=== PATIENT | female | born 1985 | race Caucasian/White ===

== ENCOUNTER 2020-08-11 10:23 | Outpatient (REF) | payer OTHER, SELFPAY ==
[2020-08-11 10:42] LABS: COVID-19 Test Negative (Negative)
== END 2020-08-11 10:24 | disposition home or self-care (01) ==
LOC: HO.EMPCOV 10:23
PROVIDERS: Visit Provider Internal Medicine
DX: Z20.828 Contact with and (suspected) exposure to other viral communicable diseases (principal)
CPT/HCPCS: 87635; C9803

== ENCOUNTER 2020-08-16 08:59 | Emergency (ER) | payer OTHER, SELFPAY ==
[2020-08-16 09:51] VITALS: BP 135/91; PULSE 120; RESP 18; TEMP 37.4; O2SAT 99; BMI 45.8
--- NOTE | 2020-08-16 10:35 | ED_ITS ---
HPI - Wound/Laceration General Chief Complaint: Wound/Laceration Stated Complaint: boil on buttock, painful Time Seen by Provider: 08/16/20 10:33 History of Present Illness HPI narrative: Patient complains of boil on the right buttock similar to several other episodes of abscess, it has been there for 3 days, no fever no chills Related Data Previous Rx's Medication Instructions Recorded doxycycline hyclate 100 mg PO BID 7 Days #14 cap 08/16/20 ibuprofen 600 mg PO Q6H PRN #20 tab 08/16/20 Allergies Allergy/AdvReac Type Severity Reaction Status Date / Time acetaminophen [Percocet] Allergy Unknown hives Verified 08/16/20 09:57 oxycodone [Percocet] Allergy Unknown hives Verified 08/16/20 09:57 No Known Allergies Allergy Unverified 04/30/20 16:10 Review of Systems Review of Systems: Right gluteal abscess Negatives are no fever no chills no dizziness no weakness no other rash no other abscess no numbness no weakness [facility] Past Medical History Attestation statement: The following information was validated with the patient. [facility] Narrative: Patient has had similar abscesses in the past Source: nursing notes reviewed Social History Social History Advance Directives: No Advance Directives Information Provided: Yes Physical Exam Vital Signs: Vital Signs: Last Vital Signs Temp 99.3 F 08/16/20 09:51 Pulse 120 H 08/16/20 09:51 Resp 18 08/16/20 09:51 BP 135/91 H 08/16/20 09:51 Pulse Ox 99 08/16/20 09:51 Body Mass Index 45.8 General appearance no distress, cooperative Head is normocephalic atraumatic Neck is supple Respiratory no distress Abdomen nontender The skin exam there is an area of induration and fluctuance, no discharge on the right gluteal, there is some mild surrounding erythema, skin is intact Extremities is full range of motion x4, gait is normal Neuro no focal deficit Course Course Course Narrative: Procedure note Right gluteal abscess is cleansed with Betadine Anesthesia was 15 cc of 1% lidocaine A 1 cm incision was made, loculations broken up with forceps and discharge of copious pus Packing was placed Dressing was placed Discharge Plan Discharge Clinical Impression: Abscess Patient Disposition: Home, Self-Care Additional Instructions: Return to ER in 2 days for packing removal, wound check Return any time for spreading redness, worse pain and swelling, fever, any worse condition or any concerns Prescriptions: New doxycycline hyclate 100 mg capsule 100 mg PO BID 7 Days Qty: 14 RF: 0 ibuprofen 600 mg tablet 600 mg PO Q6H PRN (Reason: pain) Qty: 20 RF: 0 Interventions: ED Discharge Assessment Last Done: 08/16/20 11:52 Discharge Date/Time: 08/16/20 11:53
[2020-08-16] MEDS: Lidocaine HCl 1 % MPF 5 ML VIAL SUBCUT ×3 (10:57→11:12)
[2020-08-16] MEDS: Ibuprofen 600 MG TABLET PO (11:50)
--- NOTE | 2020-08-16 11:50 | PC.NURSE ---
marivel torres in to assess, perform i&d, pack wound, rn applied dsd, pt tolerated well
== END 2020-08-16 11:53 | disposition home or self-care (01) ==
PROVIDERS: Emergency Provider Emergency Medicine; PCP Nurse Practitioner Family
DX: L02.31 Cutaneous abscess of buttock (principal)
CPT/HCPCS: 10060; 99283; 99284

== ENCOUNTER 2020-08-18 09:54 | Emergency (ER) | payer OTHER, SELFPAY ==
--- NOTE | 2020-08-18 10:02 | ED_ITS ---
HPI - General Adult General Chief complaint: Skin/Abscess/Foreign Body Stated complaint: wound check Source: patient Mode of arrival: ambulatory Limitations: no limitations History of Present Illness HPI narrative: Patient presents to ED for evaluation of status post right buttock I&D of abscess. Patient states no complaints. Patient states packing is still in place. Related Data Previous Rx's Medication Instructions Recorded doxycycline hyclate 100 mg PO BID 7 Days #14 cap 08/16/20 ibuprofen 600 mg PO Q6H PRN #20 tab 08/16/20 Allergies Allergy/AdvReac Type Severity Reaction Status Date / Time acetaminophen [Percocet] Allergy Unknown hives Verified 08/18/20 10:07 oxycodone [Percocet] Allergy Unknown hives Verified 08/18/20 10:07 No Known Allergies Allergy Verified 08/18/20 10:07 Review of Systems Review of Systems: Yes all other systems are reviewed and are negative Constitutional: Constitutional: Reports as per HPI and Reports no additional constitutional complaints Eyes: Eyes: Reports as per HPI and Reports no additional eye complaints ENT: Reports system reviewed and no additional complaints, except as documented and Reports as per HPI Cardiovascular: Cardiovascular: Reports as per HPI and Reports no additional cardiovascular complaints Respiratory: Respiratory: Reports as per HPI and Reports no additional respiratory complaints Gastrointestinal: Gastrointestinal: Reports as per HPI and Reports no additional gastrointestinal complaints Genitourinary: Genitourinary: Reports no additional female genitourinary compl aints and Reports as per HPI Musculoskeletal: Musculoskeletal: Reports no additional musculoskeletal complaints and Reports as per HPI Neurologic: Reports system reviewed and no additional complaints, except as documented and Reports as per HPI Psychiatric: Psychiatric: Reports no additional psychiatric complaints and Reports as per HPI [facility] Past Medical History Medical History (Updated 08/18/20 @ 11:18 by DIXIE Pettit) No known health problems Social History Social History Alcohol intake: unknown Use of substances other than those prescribed or required for medical reasons: Unknown Advance Directives: No Advance Directives Information Provided: Yes Physical Exam Vital Signs: Vital Signs: Last Vital Signs Temp 97.0 F 08/18/20 10:04 Pulse 109 H 08/18/20 10:04 Resp 17 08/18/20 10:04 BP 144/94 H 08/18/20 10:04 Pulse Ox 98 08/18/20 10:04 Body Mass Index 44.9 Const: General: cooperative, healthy appearing, comfortable, no acute distress, well developed, alert and awake Orientation/consciousness: patient oriented x3 HENMT: Head: Yes normal to inspection and Yes No palpable skull fracture present Eyes: General: appearance normal, both eyes and all related structures Neck: Neck: Yes normal visual inspection, Yes full ROM, Yes no lymphadenopathy, Yes no meningeal signs, Yes trachea midline, Yes supple and No tender Chest: Chest palpation & inspection: normal inspection of the chest and normal palpation of entire chest wall Resp: Effort & Inspection: normal respiratory effort and able to speak in complete sentences Auscultation: clear to auscultation bilaterally Cardio: Jugular venous distension: no JVD Heart sounds: S1 normal heart sound present and S2 normal heart sound present GI: Inspection: Yes normal to inspection and No abdominal wall ecchymosis Palpation (GI): Soft to palpation, not firm, nontender, no guarding and not rigid : General: No CVA tenderness and Yes no CVA tenderness Back/Spine/Pelvis: Back: no CVA tenderness, No CVA tenderness and No back tenderness Skin: General skin exam: no rashes or lesions noted and elasticity normal Neuro: General: patient oriented x3, no meningeal signs and CN's II-XI intact bilaterally Cranial nerves: Yes CN's II-XII intact bilaterally Extrem: General: Yes normal to inspection and Yes full ROM Psych: Appearance: grossly normal, well kempt and not disheveled Course Course Course Narrative: Patient will be evaluated once there is open bed. Reevaluation(s) Reevaluation #1: Patient's wound ( left buttocks) looks healthy and clean. Packing was removed and wound was cleaned with Betadine, normal saline, alcohol swab. New packing was placed. Also new dressing was placed. Time: 11:12 Medical Decision Making [facility] Narrative Medical decision making narrative: Wound check Discharge Plan Discharge Clinical Impression: Wound check, abscess Patient Disposition: Home, Self-Care Instructions: Abscess Follow-up (ED) Additional Instructions: Return to ED for any worsening pain, fever, chills, worsening redness, profuse drainage, or any other concerning symptoms. Return to the ED or follow-up with the PCP in 2 days for wound re-evaluation. Prescriptions: No Action doxycycline hyclate 100 mg capsule 100 mg PO BID 7 Days Qty: 14 RF: 0 ibuprofen 600 mg tablet 600 mg PO Q6H PRN (Reason: pain) Qty: 20 RF: 0 Interventions: ED Discharge Assessment Last Done: 08/18/20 11:23 Discharge Date/Time: 08/18/20 11:25 Print Language: Algerian
[2020-08-18 10:04] VITALS: BP 144/94; PULSE 109; RESP 17; TEMP 36.1; O2SAT 98; BMI 44.9
== END 2020-08-18 11:25 | disposition home or self-care (01) ==
PROVIDERS: Emergency Provider Emergency Medicine; PCP Nurse Practitioner Family
DX: Z48.00 Encounter for change or removal of nonsurgical wound dressing (principal); L02.31 Cutaneous abscess of buttock
CPT/HCPCS: 99282; 99283

== ENCOUNTER 2020-09-20 10:31 | Emergency (ER) | payer OTHER, SELFPAY ==
[2020-09-20 10:33] VITALS: BP 136/72; PULSE 84; RESP 16; TEMP 36.4; O2SAT 97; BMI 46.8
--- NOTE | 2020-09-20 10:43 | ED.SKABFB ---
HPI - Skin/Abscess/Foreign Bdy General Chief complaint: Skin/Abscess/Foreign Body Stated complaint: THUM INJ AT WORK Time Seen by Provider: 09/20/20 10:42 Source: patient Mode of arrival: ambulatory Limitations: no limitations History of Present Illness HPI narrative: 35 yo female hx of boils here for R thumb redness/swelling drainage she is R hand dom, noted on she scraped it on counter and it became inflammed and swollen, tdap UTAida DIANE complaint: abscess/boil Onset (ago): day(s) (4) Tetanus up to date: yes Location: R hand (thumb) Severity: similar to previous episodes Quality: aching Pain Consistency: constant Relieving factors: none Exacerbating factors: none Context: other (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) Associated symptoms: denies other symptoms Treatments prior to arrival: none Related Data Home Medications Medication Instructions Recorded Confirmed ibuprofen [Motrin] 800 mg PO Q8H PRN MDD 2400 09/20/20 09/20/20 levothyroxine 125 mcg PO DAILY 09/20/20 09/20/20 omeprazole 20 mg PO DAILY 09/20/20 09/20/20 sertraline [Zoloft] mg 09/20/20 Previous Rx's Medication Instructions Recorded doxycycline hyclate 100 mg PO BID 7 Days #14 cap 08/16/20 ibuprofen 600 mg PO Q6H PRN #20 tab 08/16/20 cephalexin 500 mg PO BID 7 Days #14 cap 09/20/20 cyclobenzaprine 10 mg PO TID PRN #14 tab 09/20/20 doxycycline hyclate 100 mg PO BID 7 Days #14 cap 09/20/20 ibuprofen 600 mg PO Q6H PRN #30 tab 09/20/20 ondansetron 4 mg PO Q8H PRN #20 tab 09/20/20 Allergies Allergy/AdvReac Type Severity Reaction Status Date / Time acetaminophen [Percocet] Allergy Unknown hives Verified 08/18/20 10:07 oxycodone [Percocet] Allergy Unknown hives Verified 08/18/20 10:07 No Known Allergies Allergy Verified 08/18/20 10:07 Review of Systems Review of Systems: Constitutional : No Fever, No Chills ENT/Mouth : No sore throat, No Rhinorrhea Eyes: No Eye Pain, No Swelling, No Redness Cardiovascular : No Chest Pain, No SOB Respiratory : No Cough, No Sputum Gastrointestinal : No Nausea, No Vomiting, No Diarrhea, No abdominal Pain Genitourinary : No Dysuria, No Hematuria Musculoskeletal : pos joint pain, No Myalgias, No Joint Swelling Skin : pos Skin Lesions, positive skin rash Neuro : No Weakness, No Numbness, No Headache Psych : No Anxiety, No Depression Heme/Lymph: No Bruising, No Bleeding,No Lymphadenopathy Endocrine : No Polyuria, No Polydipsia All other systems reviewed and are negative [facility] Past Medical History Attestation statement: The following information was validated with the patient. Medical History Boils Social History Social History (Updated 09/20/20 @ 11:36 by Tansiha Lancaster DO) Alcohol intake: unknown Smoking Status: Never smoker Advance Directives: No Advance Directives Information Provided: No Physical Exam Vital Signs: Vital Signs: Last Vital Signs Temp 97.6 F 09/20/20 10:33 Pulse 86 09/20/20 13:18 Resp 18 09/20/20 13:18 BP 128/81 09/20/20 13:18 Pulse Ox 99 09/20/20 13:18 Body Mass Index 46.8 Appearance: Alert. Oriented X3. No acute distress. Eyes: Pupils equal, round and reactive to light. ENT: Pharynx normal. Neck: Normal inspection. Neck supple. CVS: Normal heart rate and rhythm. Pulses normal. Respiratory: No respiratory distress. Breath sounds normal. Abdomen: Soft and nontender. Skin: Skin warm and dry. Normal skin color. Normal skin turgor. Extremities: No lower extremity edema. No calf ttp R thumb on dorsum fluctuant area with open area but not draining overlying IP joint, distal NV intact, swelling and mild erythema extends onto dorsum of hand and around thenar eminence - she can range thumb no ttp along flexor tendon, she can extend as well it is not fixed or contracted Neuro: Oriented X 3. No motor deficit. No sensory deficit. Course Course Course Narrative: I have asked the patient several times to stay overnight for IV antibiotics given dominant hand and thumb - cellulitis and abscess, she is alert and oriented, answers questions appropriately - states she cannot stay overnight and will return for any concerns Procedures Abscess I/D Site: hand Side (if applicable): right Local Anesthetic: lidocaine 2% Amount of anesthesia used (mL): 3 Amount of fluid expressed (mL): 5 Sent for culture/gram staining?: Yes Irrigation: Yes Packing used?: none MDM - Skin/Abscess/Foreign Bdy MDM Narrative Medical decision making narrative: 35 yo female with R thumb abscess extending onto dorsum of hand - will obtain labs, xray for FB, start IV antibiotics attempt I/D - dispo per results and findings. she has no flexor ttp and she can range the thumb it is not contracted at this time Lab Data Result diagrams: 09/20/20 11:05 09/20/20 11:06 Labs: Lab Results 09/20/20 09/20/20 09/20/20 Range/Units 11:05 11:06 11:06 WBC 7.9 (4.8-10.8) X10*3/uL RBC 4.32 (4.20-5.50) X10*6/uL Hgb 12.0 (12.0-16.0) g/dl Hct 36.4 L (37-47) % MCV 84.3 (80-98) fL MCH 27.8 (27.0-33.0) pg MCHC 33.0 (31.0-35.0) g/dl RDW 14.7 (11.0-16.0) % Plt Count 418 H (160-400) X10*3/uL MPV 10.3 (9.4-12.3) fL Immature Gran % (Auto) 0.3 (0.0-0.4) % Neut % (Auto) 71.6 (45-73) % Lymph % (Auto) 19.6 L (20-40) % Traill % (Auto) 6.9 (2-11) % Eos % (Auto) 1.3 (0-4) % Baso % (Auto) 0.3 (0-2) % Lymph # (Auto) 1.5 (1.2-4.9) X10*3/uL Traill # (Auto) 0.5 (0.1-1.2) X10*3/uL Eos # (Auto) 0.1 (0.0-0.4) X10*3/uL Baso # (Auto) 0.0 (0.0-0.2) X10*3/uL Abs Immat Gran (auto) 0.02 (0.00-0.03) X10*3/uL Absolute Neuts (auto) 5.7 (2.0-8.3) X10*3/uL Absolute Nucleated RBC 0.000 (0.0-0.012) X10*3/uL Nucleated RBC % (auto) 0.0 (0.0-0.2) /100WBC Hold Blue Top SEE NOTE Sodium 139 (135-145) mmol/L Potassium 4.4 (3.3-5.1) mmol/L Chloride 104 (96-108) mmol/L Carbon Dioxide 24 (22-29) mmol/L Anion Gap 15 (12-20) BUN 14 (9-16) mg/dL Creatinine 0.84 (0.5-1.4) mg/dL Estim Creat Clear Calc 102.5 Estimated GFR > 60 Random Glucose 97 (60-115) mg/dL Lactic Acid (0.5-2.0) mmol/L Calcium 9.1 (8.4-10.2) mg/dL Magnesium 1.9 (1.6-2.6) mg/dL Total Bilirubin 0.3 (0.0-1.0) mg/dL Direct Bilirubin 0.2 (0.0-0.5) mg/dL AST 14 (5-31) U/L ALT 16 (0-31) U/L Alkaline Phosphatase 90 (39-117) U/L Total Protein 7.2 (6.5-8.0) g/dL Albumin 4.4 (3.5-5.0) g/dL COVID-19 (ELEAZAR) (Negative) COVID-19 Clin Com 09/20/20 09/20/20 Range/Units 11:06 11:07 WBC (4.8-10.8) X10*3/uL RBC (4.20-5.50) X10*6/uL Hgb (12.0-16.0) g/dl Hct (37-47) % MCV (80-98) fL MCH (27.0-33.0) pg MCHC (31.0-35.0) g/dl RDW (11.0-16.0) % Plt Count (160-400) X10*3/uL MPV (9.4-12.3) fL Immature Gran % (Auto) (0.0-0.4) % Neut % (Auto) (45-73) % Lymph % (Auto) (20-40) % Traill % (Auto) (2-11) % Eos % (Auto) (0-4) % Baso % (Auto) (0-2) % Lymph # (Auto) (1.2-4.9) X10*3/uL Traill # (Auto) (0.1-1.2) X10*3/uL Eos # (Auto) (0.0-0.4) X10*3/uL Baso # (Auto) (0.0-0.2) X10*3/uL Abs Immat Gran (auto) (0.00-0.03) X10*3/uL Absolute Neuts (auto) (2.0-8.3) X10*3/uL Absolute Nucleated RBC (0.0-0.012) X10*3/uL Nucleated RBC % (auto) (0.0-0.2) /100WBC Hold Blue Top Sodium (135-145) mmol/L Potassium (3.3-5.1) mmol/L Chloride (96-108) mmol/L Carbon Dioxide (22-29) mmol/L Anion Gap (12-20) BUN (9-16) mg/dL Creatinine (0.5-1.4) mg/dL Estim Creat Clear Calc Estimated GFR Random Glucose (60-115) mg/dL Lactic Acid 0.8 (0.5-2.0) mmol/L Calcium (8.4-10.2) mg/dL Magnesium (1.6-2.6) mg/dL Total Bilirubin (0.0-1.0) mg/dL Direct Bilirubin (0.0-0.5) mg/dL AST (5-31) U/L ALT (0-31) U/L Alkaline Phosphatase (39-117) U/L Total Protein (6.5-8.0) g/dL Albumin (3.5-5.0) g/dL COVID-19 (ELEAZAR) Negative (Negative) COVID-19 Clin Com See Note Discharge Plan Discharge Clinical Impression: Cellulitis Qualifiers: Site of cellulitis: extremity Site of cellulitis of extremity: finger Laterality: right Qualified Code(s): L03.011 - Cellulitis of right finger Abscess of skin or subcutaneous tissue Qualifiers: Site of cutaneous abscess: extremity Site of cutaneous abscess of extremity: hand Laterality: right Qualified Code(s): L02.511 - Cutaneous abscess of right hand Patient Disposition: Home, Self-Care Additional Instructions: return to ED for any worsening symptoms or concerns monitor for signs of increased pain, fevers, drainage, swelling, red streaks up your arm, unable to move thumb CHANGE DRESSING DAILY - OKAY TO WASH BUT NOT SOAK IN DISHES OR BATH YOU WERE OFFERED ADMISSION BUT IT WAS REFUSED Prescriptions: New cyclobenzaprine 10 mg tablet 10 mg PO TID PRN (Reason: muscle spasm) Qty: 14 RF: 0 doxycycline hyclate 100 mg capsule 100 mg PO BID 7 Days Qty: 14 RF: 0 cephalexin 500 mg capsule 500 mg PO BID 7 Days Qty: 14 RF: 0 ibuprofen 600 mg tablet 600 mg PO Q6H PRN (Reason: pain) Qty: 30 RF: 0 ondansetron 4 mg tablet,disintegrating 4 mg PO Q8H PRN (Reason: nausea and vomiting) Qty: 20 RF: 0 No Action doxycycline hyclate 100 mg capsule 100 mg PO BID 7 Days Qty: 14 RF: 0 ibuprofen 600 mg tablet 600 mg PO Q6H PRN (Reason: pain) Qty: 20 RF: 0 ibuprofen [Motrin] 800 mg Tablet 800 mg PO Q8H MDD 2400 PRN (Reason: Pain, Moderate) RF: 0 sertraline [Zoloft] 100 mg Tablet RF: 0 levothyroxine 125 mcg Tablet 125 mcg PO DAILY RF: 0 omeprazole 20 mg Capsule,Delayed Release(Dr/Ec) 20 mg PO DAILY RF: 0 Referrals: Chelsie Sands NP [Primary Care Provider] - 2 days (WOUND CHECK) Stand Alone Forms: Work/School Release
[2020-09-20] MEDS: Lidocaine HCl 2 % MPF 5 ML VIAL SUBCUT (10:55)
[2020-09-20 11:13] LABS: MANUAL DIFF FLAG NO
[2020-09-20 11:15] LABS: Basophils Percent Auto 0.3 % (0-2); Eosinophils Absolute Auto 0.1 X10*3/uL (0.0-0.4); Eosinophils Percent Auto 1.3 % (0-4); Hematocrit 36.4 % (37-47); Imm Gran Abs Auto 0.02 X10*3/uL (0.00-0.03); Imm Gran Pct Auto 0.3 % (0.0-0.4); Lymphocytes Absolute Auto 1.5 X10*3/uL (1.2-4.9); Lymphocytes Percent Auto 19.6 % (20-40); Mean Corpuscular Hemoglobin 27.8 pg (27.0-33.0); Mean Corpuscular Volume 84.3 fL (80-98); Mean Platelet Volume 10.3 fL (9.4-12.3); Monocytes Absolute Auto 0.5 X10*3/uL (0.1-1.2); Monocytes Percent Auto 6.9 % (2-11); Neutrophils Absolute Auto 5.7 X10*3/uL (2.0-8.3); Neutrophils Percent Auto 71.6 % (45-73); Platelet Count 418 X10*3/uL (160-400); Red Blood Count 4.32 X10*6/uL (4.20-5.50); Red Cell Distribution Width 14.7 % (11.0-16.0); White Blood Count 7.9 X10*3/uL (4.8-10.8)
[2020-09-20 11:29] LABS: COVID-19 Test Negative (Negative)
[2020-09-20] MEDS: Piperacillin Sodium/Tazobactam 3.375 GM in 0.9 % Sodium Chloride 50 ML IV (11:34)
[2020-09-20 11:35] LABS: Lactic Acid 0.8 mmol/L (0.5-2.0)
[2020-09-20 11:40] LABS: Alanine Aminotransferase 16 U/L (0-31); Albumin Level 4.4 g/dL (3.5-5.0); Alkaline Phosphatase 90 U/L (39-117); Anion Gap 15 (12-20); Aspartate Amino Transferase 14 U/L (5-31); Bilirubin Direct 0.2 mg/dL (0.0-0.5); Bilirubin Total 0.3 mg/dL (0.0-1.0); Blood Urea Nitrogen 14 mg/dL (9-16); Calcium 9.1 mg/dL (8.4-10.2); Carbon Dioxide 24 mmol/L (22-29); Chloride 104 mmol/L (96-108); Creatinine Clr Calc Pharmacy 102.5; Estimated Glomerular Filt Rate > 60; Glucose Random 97 mg/dL (60-115); Magnesium 1.9 mg/dL (1.6-2.6); Potassium 4.4 mmol/L (3.3-5.1); Sodium 139 mmol/L (135-145); Total Protein 7.2 g/dL (6.5-8.0)
[2020-09-20] MEDS: Ketorolac Tromethamine 30 MG/ML VIAL IVPUSH (13:17)
[2020-09-20 13:18] VITALS: BP 128/81; PULSE 86; RESP 18; O2SAT 99
== END 2020-09-20 15:31 | disposition home or self-care (01) ==
PROVIDERS: Emergency Provider Emergency Medicine; PCP Nurse Practitioner Family
DX: L03.011 Cellulitis of right finger (principal); L02.511 Cutaneous abscess of right hand; Z20.822 Contact with and (suspected) exposure to COVID-19
CPT/HCPCS: 10060; 36415; 80048; 80076; 83605; 83735; 85025; 87040; 87071; 87147; 87186; 87205; 87635; 96365; 96367; 96375; 99284; J1885; J2543; J3370

== ENCOUNTER 2020-10-05 07:39 | Outpatient (REF) | payer OTHER, SELFPAY ==
[2020-10-05 08:06] LABS: COVID-19 Test Negative (Negative)
== END 2020-10-05 07:40 | disposition home or self-care (01) ==
LOC: HO.EMPCOV 07:39
PROVIDERS: Visit Provider Internal Medicine
DX: Z20.822 Contact with and (suspected) exposure to COVID-19 (principal)
CPT/HCPCS: 36415; 87635; C9803

== ENCOUNTER 2020-11-02 13:00 | Outpatient (RCR) | payer OTHER, SELFPAY | END 2020-11-12 09:00 | disposition home or self-care (01) | LOC: HO.PT 13:00 | PROVIDERS: PCP Nurse Practitioner Family; Visit Provider Physician Assistant Surgical | DX: M17.11 Unilateral primary osteoarthritis, right knee (principal); M21.061 Valgus deformity, not elsewhere classified, right knee | CPT/HCPCS: 97110; 97112; 97140; 97161 ==

== ENCOUNTER 2021-02-09 06:05 | Outpatient (REF) | payer OTHER, SELFPAY ==
[2021-02-09 06:58] LABS: MANUAL DIFF FLAG NO
[2021-02-09 07:11] LABS: Basophils Percent Auto 0.6 % (0-2); Eosinophils Absolute Auto 0.2 X10*3/uL (0.0-0.4); Eosinophils Percent Auto 3.9 % (0-4); Hematocrit 37.3 % (37-47); Hemoglobin 12.2 g/dl (12.0-16.0); Imm Gran Abs Auto 0.02 X10*3/uL (0.00-0.03); Imm Gran Pct Auto 0.4 % (0.0-0.4); Lymphocytes Absolute Auto 1.9 X10*3/uL (1.2-4.9); Lymphocytes Percent Auto 36.6 % (20-40); Mean Corpuscular HGB Conc 32.7 g/dl (31.0-35.0); Mean Corpuscular Hemoglobin 26.7 pg (27.0-33.0); Mean Corpuscular Volume 81.6 fL (80-98); Mean Platelet Volume 11.3 fL (9.4-12.3); Monocytes Absolute Auto 0.4 X10*3/uL (0.1-1.2); Monocytes Percent Auto 7.8 % (2-11); Neutrophils Absolute Auto 2.6 X10*3/uL (2.0-8.3); Neutrophils Percent Auto 50.7 % (45-73); Platelet Count 385 X10*3/uL (160-400); Red Blood Count 4.57 X10*6/uL (4.20-5.50); Red Cell Distribution Width 13.7 % (11.0-16.0); White Blood Count 5.2 X10*3/uL (4.8-10.8)
[2021-02-09 07:29] LABS: Alanine Aminotransferase 14 U/L (0-31); Albumin Level 4.1 g/dL (3.5-5.0); Alkaline Phosphatase 83 U/L (39-117); Anion Gap 12 (12-20); Aspartate Amino Transferase 13 U/L (5-31); Bilirubin Total 0.4 mg/dL (0.0-1.0); Blood Urea Nitrogen 13 mg/dL (9-16); Carbon Dioxide 26 mmol/L (22-29); Chloride 106 mmol/L (96-108); Cholesterol 249 mg/dL; Estimated Glomerular Filt Rate > 60; Glucose Random 90 mg/dL (60-115); HDL Cholesterol 60 mg/dL; LDL Cholesterol Calculated 156 mg/dl; Potassium 4.8 mmol/L (3.3-5.1); Sodium 139 mmol/L (135-145); Total Protein 6.6 g/dL (6.5-8.0); Triglycerides 169 mg/dL
== END 2021-02-09 06:06 | disposition home or self-care (01) ==
LOC: HO.LAB 06:05
PROVIDERS: PCP Nurse Practitioner Family; Visit Provider Nurse Practitioner Family
DX: D64.9 Anemia, unspecified (principal); E03.9 Hypothyroidism, unspecified; E78.5 Hyperlipidemia, unspecified
CPT/HCPCS: 36415; 80053; 80061; 84443; 85025

== ENCOUNTER 2021-05-11 11:07 | Outpatient (REF) | payer OTHER, SELFPAY ==
[2021-05-11 12:26] LABS: TSH reflex Free T4 6.69 uIU/mL (0.32-4.0)
[2021-05-11 13:08] LABS: Free T4 (Free Thyroxine) 0.98 ng/dL (0.71-1.85)
== END 2021-05-11 11:08 | disposition home or self-care (01) ==
LOC: HO.LAB 11:07
PROVIDERS: Visit Provider Nurse Practitioner Family
DX: E03.9 Hypothyroidism, unspecified (principal)
CPT/HCPCS: 36415; 84439; 84443

== ENCOUNTER 2021-07-13 07:49 | Outpatient (REF) | payer OTHER, SELFPAY ==
[2021-07-13 12:31] LABS: TSH reflex Free T4 3.68 uIU/mL (0.32-4.0)
== END 2021-07-13 07:50 | disposition home or self-care (01) ==
LOC: HO.LABR 07:49
PROVIDERS: PCP Nurse Practitioner Family; Visit Provider Nurse Practitioner Family
DX: E03.9 Hypothyroidism, unspecified (principal)
CPT/HCPCS: 36415; 84443

== ENCOUNTER 2021-11-01 06:33 | Outpatient (REF) | payer OTHER, SELFPAY ==
[2021-11-01 06:44] LABS: MANUAL DIFF FLAG NO
[2021-11-01 07:16] LABS: Basophils Percent Auto 0.7 % (0-2); Eosinophils Absolute Auto 0.2 X10*3/uL (0.0-0.4); Eosinophils Percent Auto 3.8 % (0-4); Hematocrit 36.6 % (37.0-47.0); Hemoglobin 11.7 g/dl (12.0-16.0); Imm Gran Abs Auto 0.02 X10*3/uL (0.00-0.03); Imm Gran Pct Auto 0.3 % (0.0-0.4); Lymphocytes Absolute Auto 1.7 X10*3/uL (1.2-4.9); Mean Corpuscular Volume 81.3 fL (80.0-98.0); Mean Platelet Volume 11.3 fL (9.4-12.3); Monocytes Absolute Auto 0.5 X10*3/uL (0.1-1.2); Monocytes Percent Auto 7.6 % (2-11); Neutrophils Absolute Auto 3.6 x10*3/uL (2.0-8.3); Neutrophils Percent Auto 59.6 % (45-73); Platelet Count 391 X10*3/uL (160-400); Red Cell Distribution Width 14.7 % (11.0-16.0)
[2021-11-01 07:33] LABS: Alanine Aminotransferase 17 U/L (0-31); Albumin Level 4.1 g/dL (3.5-5.0); Alkaline Phosphatase 72 U/L (39-117); Anion Gap 14 (12-20); Aspartate Amino Transferase 14 U/L (5-31); Bilirubin Total 0.3 mg/dL (0.0-1.0); Blood Urea Nitrogen 16 mg/dL (9-16); Carbon Dioxide 22 mmol/L (22-29); Chloride 104 mmol/L (96-108); Estimated Glomerular Filt Rate > 60; Glucose Random 91 mg/dL (60-115); Potassium 4.8 mmol/L (3.3-5.1); Sodium 135 mmol/L (135-145); Total Protein 6.6 g/dL (6.5-8.0)
[2021-11-01 07:54] LABS: TSH reflex Free T4 3.49 uIU/mL (0.32-4.0)
[2021-11-01 09:12] LABS: Vitamin B12 271 pg/mL (200-900)
== END 2021-11-01 06:34 | disposition home or self-care (01) ==
LOC: HO.LAB 06:33
PROVIDERS: PCP Nurse Practitioner Family; Visit Provider Nurse Practitioner Family
DX: E03.9 Hypothyroidism, unspecified (principal); L65.9 Nonscarring hair loss, unspecified; D64.9 Anemia, unspecified
CPT/HCPCS: 36415; 80053; 82607; 84443; 85025

== ENCOUNTER 2022-09-07 06:04 | Outpatient (REF) | payer OTHER, SELFPAY ==
[2022-09-07 06:18] LABS: MANUAL DIFF FLAG NO
[2022-09-07 07:44] LABS: Basophils Percent Auto 0.7 % (0-2); Eosinophils Absolute Auto 0.2 X10*3/uL (0.0-0.4); Eosinophils Percent Auto 2.8 % (0-4); Hematocrit 37.1 % (37.0-47.0); Hemoglobin 11.9 g/dl (12.0-16.0); Imm Gran Abs Auto 0.02 X10*3/uL (0.00-0.03); Imm Gran Pct Auto 0.3 % (0.0-0.4); Lymphocytes Absolute Auto 1.7 X10*3/uL (1.2-4.9); Lymphocytes Percent Auto 27.6 % (20-40); Mean Corpuscular HGB Conc 32.1 g/dl (31.0-35.0); Mean Corpuscular Hemoglobin 25.6 pg (27.0-33.0); Mean Corpuscular Volume 79.8 fL (80.0-98.0); Mean Platelet Volume 11.4 fL (9.4-12.3); Monocytes Absolute Auto 0.5 X10*3/uL (0.1-1.2); Neutrophils Absolute Auto 3.7 x10*3/uL (2.0-8.3); Neutrophils Percent Auto 60.6 % (45-73); Platelet Count 373 X10*3/uL (160-400); Red Blood Count 4.65 X10*6/uL (4.20-5.50); Red Cell Distribution Width 14.6 % (11.0-16.0); White Blood Count 6.1 X10*3/uL (4.8-10.8)
[2022-09-07 08:44] LABS: TSH reflex Free T4 2.32 uIU/mL (0.32-4.0)
== END 2022-09-07 06:05 | disposition home or self-care (01) ==
LOC: HO.LAB 06:04
PROVIDERS: PCP Nurse Practitioner Family; Visit Provider Nurse Practitioner Family
DX: E03.9 Hypothyroidism, unspecified (principal); D64.9 Anemia, unspecified
CPT/HCPCS: 36415; 84443; 85025

== ENCOUNTER 2023-01-13 10:45 | Outpatient (REF) | payer OTHER, SELFPAY ==
--- NOTE | ~2023-01-13 | XR_ITS ---
EXAMINATION: Right knee INDICATIONS: Pain COMPARISON: Radiographs from 07/09/2019 and MRI from 05/07/2020 TECHNIQUE: AP weightbearing bilateral, right knee lateral, sunrise view FINDINGS: There is significant narrowing of lateral compartment of right knee joint with marginal spurring in the lateral tibial plateau and mild valgus deformity. There is spurring of patellofemoral compartment, no joint effusion. There is no fracture or dislocation seen. XR/XR knee standing BI IMPRESSION: Changes of osteoarthritis in the lateral compartment of right knee joint.
--- NOTE | ~2023-01-13 | XR_ITS ---
EXAMINATION: Right knee INDICATIONS: Pain COMPARISON: Radiographs from 07/09/2019 and MRI from 05/07/2020 TECHNIQUE: AP weightbearing bilateral, right knee lateral, sunrise view FINDINGS: There is significant narrowing of lateral compartment of right knee joint with marginal spurring in the lateral tibial plateau and mild valgus deformity. There is spurring of patellofemoral compartment, no joint effusion. There is no fracture or dislocation seen. XR/XR knee RT 2V IMPRESSION: Changes of osteoarthritis in the lateral compartment of right knee joint.
== END 2023-01-13 10:46 | disposition home or self-care (01) ==
LOC: HO.HOSX 10:45
PROVIDERS: PCP Nurse Practitioner Family; Visit Provider Orthopaedic Surgery
DX: M17.11 Unilateral primary osteoarthritis, right knee (principal); M21.061 Valgus deformity, not elsewhere classified, right knee; Z98.890 Other specified postprocedural states
CPT/HCPCS: 73560; 73565

== ENCOUNTER → 2023-01-19 13:46 | Outpatient (BNVA) | payer OTHER, SELFPAY | PROVIDERS: PCP Nurse Practitioner Family; Visit Provider Orthopaedic Surgery ==

== ENCOUNTER → 2023-03-13 07:57 | Outpatient (BNVA) | payer OTHER, SELFPAY | PROVIDERS: PCP Nurse Practitioner Family; Visit Provider Physician Assistant Surgical ==

== ENCOUNTER 2023-05-03 13:59 | Outpatient (AMB) | payer OTHER, SELFPAY ==
--- NOTE | 2023-05-03 14:01 | A.OFFVIS_ITS ---
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 Her goal is to lose weight and achieve a healthy lifestyle. She reports first being concerned about her weight lifelong, highest weight to date was 235. Initial weight upon presentation to the [facility] [place] SWL clinic on 03/13/23 was 219 pounds with a BMI of 42.8. Current weight is 213.4 pounds with a BMI of 41.6. She has tried multiple methods of weight loss including fad diets without permanent results. She lives with her and 2 kids. 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 She wakes at:?4 am, and goes to bed at?930 pm. Dinner is at 530 pm. Breakfast: RTD ensure max or Premier Protein shake, coffee w whole milk AM snack: banana or other fruit Lunch: salad w protein and fruit PM snack: fruit or popcorn Dinner: salad or yogurt, take out After dinner: ice creram Other snacks: as above, chocolate Liquids: 40 oz water, no soda, no juice Alcohol/marijuana/tobacco intake: hard cider 8 2 x per month, no cannabis, 6-7 cigarettes daily (does not want to quit) Exercise: nothing GERD score: 38 CLYDE score: 3 ESS score: 5 QOL score: 116 PFSH Medical History Boils Surgical History Hx of cholecystectomy Hx of section Hx of plastic surgery Hx of carpal tunnel repair Family History Maternal Grandfather Skin cancer Social History Alcohol intake: current Alcohol intake frequency: holidays/special occasions only Patient Tobacco Use Status: Current everyday Tobacco user Cigarettes Per Day: 5 Physical Exam Vital Signs: Last Vital Signs Temp 96.9 F 05/03/23 14:07 Pulse 86 05/03/23 14:07 BP 118/78 05/03/23 14:07 Pulse Ox 97 05/03/23 14:07 Oxygen Delivery Method Room Air 05/03/23 14:07 BMI result Body Mass Index 41.7 Const General: cooperative, healthy appearing and no acute distress Orientation/consciousness: patient oriented x3 HEENT Head: Yes normal to inspection Ears: hearing grossly normal bilaterally General nose exam: Normal external nose present Face and sinus: Yes normal facial exam Eyes General: appearance normal, both eyes and all related structures Resp Effort & Inspection: normal respiratory effort Auscultation: clear to auscultation bilaterally Cardio Rate: regular rate Rhythm: regular rhythm Heart sounds: S1 normal heart sound present and S2 normal heart sound present GI Inspection: Yes normal to inspection, No distended and Yes obesity Palpation (GI): Soft to palpation, nontender and no guarding Auscultation: normal bowel sounds Skin General skin exam: no rashes or lesions noted Neuro General: patient oriented x3 Extrem General: No edema Psych Appearance: grossly normal Mental Status: mental status grossly normal Speech and movement: Normal speech and movement present Affect: normal affect Attitude: cooperative Assessment & Plan Assessment & Plan (1) Morbid obesity: Code(s): E66.01 - Morbid (severe) obesity due to excess calories Plan: This is a?38 yo female who will start our MWL program.? She has requested to have her blood work ordered, as well as to check her thyroid given her history of no meds and no recent TSH as well as [facility] public housing manager. She is scheduled to see a new public housing manager in July. ? Adequate sleep of 7-8 hours per night discussed, awakening at 4 am and going to bed around 930 pm ? Purchase body composition analyzer scale (Adan winkler or Jackeline mari) and check weight weekly. The best time to do this is first thing in the morning after going to the bathroom. 1. Nutritional counseling: Be sure to careful read the number of scoops per shake Start with 3 Celebrate rebuild shakes ([facility] [employer], [employer], [employer]) First shake (1/2 scoop in 8 oz low fat unsweetened almond milk) at 5am-7am, Second shake, (1 scoop in 10 oz low fat unsweetened almond milk) at 8am-10am Third shake, (1 scoop in 10 oz low fat unsweetened almond milk) at 10am-12pm 1 protein bar (Celebrate bars at [facility] [employer], [employer], [employer]) at 12pm-2pm, and a second bar at 3pm-5 pm. Dinner at 6pm (7 forks of protein and 7 forks of salad/vegetables). Meal to include lean meat (beef, fish, pork, turkey, chicken), cooked vegetables or a salad with olive oil and/or fruits (berries, pears, apples, kiwi). Avoid salt, breads, potatoes, rice, pasta, desserts. Try to drink 64 oz of water daily and avoid soda and juices. ?2. Each shake would be drunk slowly, like coffee in a period of 2 hours. ?3. Cut each bar in 4 pieces and eat each piece in 30 min ?to make each bar last 2 hours. ?4. I emphasized the importance of measuring accurately the food portion and measure it carefully when serving the food on the plate ?5. The meal portions include 7 full-size forks of meat and 7 full-size forks of salad. You always eat the meat portion but you can replace up to half of the forks of salad/vegetables with rice, potatoes or pasta, or a fruit ?if you like. The less you do it the better weight loss will be. ?6. One full-size fork is what can be scooped on the fork without falling aside and not what can be bit with the fork. Use regular forks like those you find in a typical restaurant. ?7.? Please send me weight measurements as soon as possible and then once a week. Always include your diet and exercise plan. Alternatively come weekly at the office for weight checks and send me the measurements. ?8. Exercise counseling: Begin by watching a stretching for beginners video. Start slowly and begin to stretch your muscles. You should do this before and after each exercise session to prevent injury. Please return to [facility] near your home. Ask the delicatessen department manager or one of the trainers how to use the machines if you are unfamiliar with them. Start elliptical with a resistance of 2. Increase resistance by 1 every 3 min to your most comfortable resistance with a max resistance of 8. Reduce the resistance by 1 every 3 minutes back down to 2 and repeat cycles for 300 calories. Alternatively, start treadmill with a speed of 3.0 and incline of 0, increasing incline by 1 every 3 minutes to the highest comfortable level (max 6 for now) then decrease in the same fashion. Repeat process to a goal of 300 calories. Goal of 2000 calories burned or more weekly. You may also consider use of the stationary bike. The easiest would be to chose the fat-burn or interval training program on the machine and do this until you reach the 300 calorie goal. Alternatively, you can manually adjust the resistance in a similar fashion as mentioned above, (resistance of 2-8 with a goal speed of 12 mph). Tracking calories is essential. 9. Alternatively start walking outside daily, tracking calories with a goal of 300 calories per day, daily. You can download the félix [employer] which can track your time, distance and calories while walking outside. You press start in the félix when you start and then stop when you are finished. 10.? It is important to communicate weekly with me, your weight and if you are having any problems with the plans 11. Discussed and answered all questions regarding?obtained consent to participate in the [facility]?Registry. 12. Please follow the diet plan exactly, without any change. If you do not like something about the plan or you feel hungry, you need to communicate with me so I can help you revise the plan. You should not change the plan yourself. Text me at [phone] 13. Goal is to lose at least 10-12 pounds in the first month Patient is morbidly obese and is not considered stable at this time.?I spent a total of 70 minutes reviewing/updating records, examining the patient and counseling the patient on weight management as detailed above. Orders: Orders Insulin Today E03.9 - Hypothyroidism, unspecified, E66.01 - Morbid (severe) obesity due to excess calories IRON PROFILE Today E03.9 - Hypothyroidism, unspecified, E66.01 - Morbid (severe) obesity due to excess calories Complete Blood Count Auto Diff Today E03.9 - Hypothyroidism, unspecified, E66.01 - Morbid (severe) obesity due to excess calories C Reactive Protein Today E03.9 - Hypothyroidism, unspecified, E66.01 - Morbid (severe) obesity due to excess calories Ferritin Today E03.9 - Hypothyroidism, unspecified, E66.01 - Morbid (severe) obesity due to excess calories TSH reflex Free T4 Today E03.9 - Hypothyroidism, unspecified, E66.01 - Morbid (severe) obesity due to excess calories Lipid Panel Today E03.9 - Hypothyroidism, unspecified, E66.01 - Morbid (severe) obesity due to excess calories Vitamin B12 and Folate Today E03.9 - Hypothyroidism, unspecified, E66.01 - Morbid (severe) obesity due to excess calories Zinc Today E03.9 - Hypothyroidism, unspecified, E66.01 - Morbid (severe) obesity due to excess calories Comprehensive Met. Panel Today E03.9 - Hypothyroidism, unspecified, E66.01 - Morbid (severe) obesity due to excess calories Vitamin B1 Today E03.9 - Hypothyroidism, unspecified, E66.01 - Morbid (severe) obesity due to excess calories Vitamin A Today E03.9 - Hypothyroidism, unspecified, E66.01 - Morbid (severe) obesity due to excess calories PTHI Today E03.9 - Hypothyroidism, unspecified, E66.01 - Morbid (severe) obesity due to excess calories Vitamin D 25-OH Total Today E03.9 - Hypothyroidism, unspecified, E66.01 - Morbid (severe) obesity due to excess calories Hemoglobin A1c Today E03.9 - Hypothyroidism, unspecified, E66.01 - Morbid (severe) obesity due to excess calories Coding Level of Care Code New Pt Level 5 (59102) Diagnoses Morbid obesity E66.01 Time Spent (min) 70
[2023-05-03 14:07] VITALS: BP 118/78; PULSE 86; TEMP 36.1; O2SAT 97; BMI 41.7
== END 2023-05-03 15:18 | disposition home or self-care (01) ==
PROVIDERS: PCP Nurse Practitioner Family; Visit Provider Physician Assistant Surgical
DX: E66.01 Morbid (severe) obesity due to excess calories (principal); Z68.41 Body mass index [BMI] 40.0-44.9, adult
CPT/HCPCS: 99205

== ENCOUNTER → 2023-05-03 13:59 | Outpatient (BNVA) | payer OTHER, SELFPAY | PROVIDERS: PCP Nurse Practitioner Family; Visit Provider Physician Assistant Surgical ==

== ENCOUNTER 2023-05-04 06:07 | Outpatient (REF) | payer OTHER, SELFPAY ==
[2023-05-04 06:23] LABS: MANUAL DIFF FLAG NO
[2023-05-04 07:37] LABS: Basophils Percent Auto 0.7 % (0-2); Eosinophils Absolute Auto 0.2 X10*3/uL (0.0-0.4); Eosinophils Percent Auto 3.3 % (0-4); Hematocrit 37.3 % (37.0-47.0); Hemoglobin 12.1 g/dl (12.0-16.0); Imm Gran Abs Auto 0.02 X10*3/uL (0.00-0.03); Imm Gran Pct Auto 0.4 % (0.0-0.4); Lymphocytes Absolute Auto 1.7 X10*3/uL (1.2-4.9); Lymphocytes Percent Auto 30.4 % (20-40); Mean Corpuscular HGB Conc 32.4 g/dl (31.0-35.0); Mean Corpuscular Hemoglobin 26.3 pg (27.0-33.0); Mean Corpuscular Volume 81.1 fL (80.0-98.0); Mean Platelet Volume 11.7 fL (9.4-12.3); Monocytes Absolute Auto 0.4 X10*3/uL (0.1-1.2); Monocytes Percent Auto 7.9 % (2-11); Neutrophils Absolute Auto 3.1 x10*3/uL (2.0-8.3); Neutrophils Percent Auto 57.3 % (45-73); Platelet Count 312 X10*3/uL (160-400); Red Cell Distribution Width 14.8 % (11.0-16.0); White Blood Count 5.4 X10*3/uL (4.8-10.8)
[2023-05-04 07:53] LABS: Estimated Average Glucose 111 mg/dL; Hemoglobin A1c % 5.5 % (<6.0)
[2023-05-04 08:23] LABS: Alanine Aminotransferase 11 U/L (0-31); Albumin Level 4.1 g/dL (3.5-5.0); Alkaline Phosphatase 71 U/L (39-117); Anion Gap 10 (12-20); Aspartate Amino Transferase 16 U/L (5-31); Bilirubin Total 0.1 mg/dL (0.0-1.0); Blood Urea Nitrogen 16 mg/dL (9-16); C Reactive Protein 0.42 mg/dL (< or = 0.50); Calcium 9.4 mg/dL (8.4-10.2); Carbon Dioxide 24 mmol/L (22-29); Chloride 109 mmol/L (96-108); Cholesterol 212 mg/dL (<200); Estimated Glomerular Filt Rate > 60; Glucose Random 99 mg/dL (60-115); HDL Cholesterol 60 mg/dL (>40); Iron 25 mcg/dL (30-160); LDL Cholesterol Calculated 133 mg/dL (<100); Percent Iron Saturation 7 % (15-50); Potassium 4.4 mmol/L (3.3-5.1); Sodium 139 mmol/L (135-145); Total Iron Binding Capacity 348 mcg/dL (228-428); Total Protein 6.8 g/dL (6.5-8.0); Triglycerides 97 mg/dL (<150); Unsaturated Iron Binding 323 ug/dL
[2023-05-04 08:31] LABS: Ferritin 9 ng/mL (10-250); Insulin 10 uU/mL (2-29); TSH reflex Free T4 26.62 uIU/mL (0.32-4.0); Vitamin D 25-OH Total 30.4 ng/mL (>30)
[2023-05-04 08:38] LABS: Folate 11.3 ng/mL (> or = 4.0); Vitamin B12 434 pg/mL (200-900)
[2023-05-04 09:39] LABS: Free T4 (Free Thyroxine) 0.69 ng/dL (0.71-1.85)
[2023-05-08 14:39] LABS: Calcium (PTHI) 9.4 mg/dL (8.6-10.2); PTHI 30 pg/mL (16-77)
[2023-05-09 05:54] LABS: Zinc 82 mcg/dL (60-130)
[2023-05-11 23:14] LABS: Vitamin A 52 mcg/dL (38-98)
[2023-05-12 17:13] LABS: Vitamin B1 11 nmol/L (8-30)
== END 2023-05-04 06:08 | disposition home or self-care (01) ==
LOC: HO.LAB 06:07
PROVIDERS: PCP Nurse Practitioner Family; Visit Provider Physician Assistant Surgical
DX: E66.01 Morbid (severe) obesity due to excess calories (principal); E03.9 Hypothyroidism, unspecified
CPT/HCPCS: 36415; 80053; 80061; 82306; 82607; 82728; 82746; 83036; 83525; 83540; 83970; 84425; 84439; 84443; 84590; 84630; 85025; 86140

== ENCOUNTER → 2023-05-11 13:43 | Outpatient (BNVA) | payer OTHER, SELFPAY | PROVIDERS: PCP Nurse Practitioner Family; Visit Provider Physician Assistant Surgical ==

== ENCOUNTER → 2023-06-02 14:53 | Outpatient (BNVA) | payer OTHER, SELFPAY | PROVIDERS: PCP Nurse Practitioner Family; Referring Provider Physician Assistant Surgical; Visit Provider Dietitian, Registered | DX: E66.9 Obesity, unspecified (principal); Z71.3 Dietary counseling and surveillance | CPT/HCPCS: 97802 ==

== ENCOUNTER 2023-06-28 13:48 | Outpatient (AMB) | payer OTHER, SELFPAY ==
--- NOTE | 2023-06-28 13:51 | A.OFFVIS_ITS ---
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 She was initially seen on 05/03/2023 with a weight of 213.4 and a BMI of 41.7. Today her weight is 192 lb with a BMI of 37.5. She has lost a total of 21.7 lb, equating to 10.1% total body weight loss She reports that she has had loose stools immediately after eating her meal at night, a majority of nights. This just started since starting the meal plan. Unclear whether is related to the protein bars in the afternoon and sugar alcohol content or gastrocolic reflex. Meal plan: 3 Control Medical Technologyebrate rebuild shakes ([employer] [facility] gift shop, [employer], [employer]) First shake (1/2 scoop in 8 oz low fat unsweetened almond milk) at 5am-7am, Second shake, (1 scoop in 10 oz low fat unsweetened almond milk) at 8am-10am Third shake, (1 scoop in 10 oz low fat unsweetened almond milk) at 10am-12pm 1 protein bar (Celebrate bars at [facility] [place] [employer], [employer], [employer]) at 12pm-2pm, and a second bar at 3pm-5 pm. Dinner at 6pm (7 forks of protein and 7 forks of salad/vegetables). Exercise plan: Treadmill 4 days per week, 150-200 calories burned. PFS Medical History Boils Surgical History Hx of cholecystectomy Hx of section Hx of plastic surgery Hx of carpal tunnel repair Family History Maternal Grandfather Skin cancer Social History Alcohol intake: current Alcohol intake frequency: holidays/special occasions only Patient Tobacco Use Status: Current everyday Tobacco user Cigarettes Per Day: 5 Review of Systems Const All systems reviewed & are unremarkable except as noted in HPI and below Physical Exam Vital Signs: Last Vital Signs Temp 96.2 F L 06/28/23 13:59 Pulse 80 06/28/23 13:59 BP 122/64 06/28/23 13:59 Pulse Ox 97 06/28/23 13:59 Oxygen Delivery Method Room Air 06/28/23 13:59 BMI result Body Mass Index 37.5 Const General: healthy appearing and no acute distress Resp Effort & Inspection: normal respiratory effort Auscultation: clear to auscultation bilaterally Cardio Rate: regular rate Rhythm: regular rhythm GI Auscultation: normal bowel sounds Extrem General: Yes normal to inspection Assessment & Plan Assessment & Plan (1) Obesity (BMI 30-39.9): Code(s): E66.9 - Obesity, unspecified Plan: Will change meal plan to remove protein bars: 3 Celebrate rebuild shakes ([facility] [place] [employer], [employer], [employer]) First shake (1/2 scoop in 8 oz low fat unsweetened almond milk) at 5am-7am, Second shake, (1 scoop in 10 oz low fat unsweetened almond milk) at 8am-10am Third shake, (1 scoop in 10 oz low fat unsweetened almond milk) at 10am-12pm Bhutanese yogurt at 3-4 pm Dinner at 6pm (7 forks of protein and 7 forks of salad/vegetables). Encouraged to increase exercise on the treadmill to his speed of 2.8-3 with incline of 0-6 and goal of 250-300 calories per session. She only has 30 minutes of time over her lunch break while at work here at [employer]. Coding Level of Care Code Est Pt Level 3 (51622) Diagnoses Obesity (BMI 30-39.9) E66.9
[2023-06-28 13:59] VITALS: BP 122/64; PULSE 80; TEMP 35.7; O2SAT 97; BMI 37.5
== END 2023-06-28 14:21 | disposition home or self-care (01) ==
PROVIDERS: PCP Nurse Practitioner Family; Visit Provider Physician Assistant Surgical
DX: E66.9 Obesity, unspecified (principal)
CPT/HCPCS: 99213

== ENCOUNTER → 2023-06-28 13:48 | Outpatient (BNVA) | payer OTHER, SELFPAY | PROVIDERS: PCP Nurse Practitioner Family; Visit Provider Physician Assistant Surgical ==

== ENCOUNTER 2023-07-03 06:22 | Outpatient (REF) | payer OTHER, SELFPAY ==
[2023-07-03 06:37] LABS: MANUAL DIFF FLAG NO
[2023-07-03 07:44] LABS: Basophils Percent Auto 0.4 % (0-2); Eosinophils Absolute Auto 0.1 X10*3/uL (0.0-0.4); Hematocrit 37.1 % (37.0-47.0); Hemoglobin 12.1 g/dl (12.0-16.0); Imm Gran Abs Auto 0.02 X10*3/uL (0.00-0.03); Imm Gran Pct Auto 0.3 % (0.0-0.4); Lymphocytes Absolute Auto 1.6 X10*3/uL (1.2-4.9); Lymphocytes Percent Auto 22.4 % (20-40); Mean Corpuscular HGB Conc 32.6 g/dl (31.0-35.0); Mean Corpuscular Hemoglobin 25.9 pg (27.0-33.0); Mean Corpuscular Volume 79.4 fL (80.0-98.0); Monocytes Absolute Auto 0.5 X10*3/uL (0.1-1.2); Monocytes Percent Auto 6.9 % (2-11); Neutrophils Absolute Auto 4.9 x10*3/uL (2.0-8.3); Platelet Count 338 X10*3/uL (160-400); Red Blood Count 4.67 X10*6/uL (4.20-5.50); Red Cell Distribution Width 14.6 % (11.0-16.0); Retic HGB Equivalent 29.3 pg (30.0-35.0); Reticulocyte Percent 1.5 % (0.5-1.8); Reticulocytes Absolute 0.068 X10*6/uL (0.026-0.095); White Blood Count 7.2 X10*3/uL (4.8-10.8)
[2023-07-03 08:42] LABS: Iron 31 mcg/dL (30-160); Lactate Dehydrogenase 137 U/L (122-220); Percent Iron Saturation 9 % (15-50); Total Iron Binding Capacity 344 mcg/dL (228-428); Unsaturated Iron Binding 313 ug/dL
[2023-07-03 08:54] LABS: Folate 7.8 ng/mL (> or = 4.0); Thyroid Stimulating Hormone 1.33 uIU/mL (0.32-4.0); Vitamin B12 300 pg/mL (200-900)
[2023-07-03 09:17] LABS: Ferritin 9 ng/mL (10-250)
[2023-07-04 17:29] LABS: Transferrin 318 mg/dL (188-341)
== END 2023-07-03 06:23 | disposition home or self-care (01) ==
LOC: HO.LAB 06:22
PROVIDERS: PCP Nurse Practitioner Family; Visit Provider Nurse Practitioner Family
DX: E03.9 Hypothyroidism, unspecified (principal); D64.9 Anemia, unspecified
CPT/HCPCS: 36415; 82607; 82728; 82746; 83540; 83615; 84443; 84466; 85025; 85045

== ENCOUNTER 2023-08-02 13:52 | Outpatient (AMB) | payer OTHER, SELFPAY ==
--- NOTE | 2023-08-02 13:54 | A.OFFVIS_ITS ---
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 She was initially seen on 05/03/2023 with a weight of 213.4 and a BMI of 41.7. Today her weight is 185.6, with a BMI of 36.2. She has lost 27.8 lb over the last 3 months which is 13% of her total body weight. She has additionally had an 11.5% loss of body fat. She reports that she has had continued right knee pain for which she is scheduled to follow-up with Ortho and now left hip pain. She is overall very satisfied with the results of her weight loss. She was told by Ortho that she is in need of a total knee replacement but needed her BMI to be below 40, it is clearly much improved below that and she will follow up with Ortho in August. Meal plan: 3 Celebrate rebuild shakes ([facility] gift shop, [employer], [employer]) First shake (1/2 scoop in 8 oz low fat unsweetened almond milk) at 5am-7am, Second shake, (1 scoop in 10 oz low fat unsweetened almond milk) at 8am-10am Third shake, (1 scoop in 10 oz low fat unsweetened almond milk) at 10am-12pm Ukrainian yogurt at 3-4 pm Dinner at 6pm (7 forks of protein and 7 forks of salad/vegetables). Drinking 80 oz water Exercise plan: Treadmill 4 days per week, 200 calories burned. PFSH Medical History Boils Surgical History Hx of cholecystectomy Hx of section Hx of plastic surgery Hx of carpal tunnel repair Family History Maternal Grandfather Skin cancer Social History (Updated 08/02/23 @ 13:58 by Hannah Foley [facility]) Alcohol intake: current Alcohol intake frequency: holidays/special occasions only Patient Tobacco Use Status: Current everyday Tobacco user Cigarettes Per Day: 6 Review of Systems Const All systems reviewed & are unremarkable except as noted in HPI and below Physical Exam Const General: healthy appearing and no acute distress Resp Effort & Inspection: normal respiratory effort Auscultation: clear to auscultation bilaterally Cardio Rate: regular rate Rhythm: regular rhythm GI Auscultation: normal bowel sounds Extrem General: Yes normal to inspection Assessment & Plan Assessment & Plan (1) Obesity (BMI 30-39.9): Code(s): E66.9 - Obesity, unspecified Plan: Overall she has done very well with a 27.8 lb weight loss in 3 months correlating to 13% total body weight loss. She will continue her current meal plan. We discussed increasing exercise as she is able and potentially swimming at the [facility]. She was given a paper for potential discount at [facility]. She may text me in the future with any questions or concerns. Coding Level of Care Code Est Pt Level 3 (59084) Diagnoses Obesity (BMI 30-39.9) E66.9
[2023-08-02 14:03] VITALS: BP 135/63; PULSE 76; TEMP 36.2; O2SAT 98; BMI 36.2
== END 2023-08-02 14:22 | disposition home or self-care (01) ==
PROVIDERS: PCP Nurse Practitioner Family; Visit Provider Physician Assistant Surgical
DX: E66.9 Obesity, unspecified (principal)
CPT/HCPCS: 99213

== ENCOUNTER → 2023-08-02 13:52 | Outpatient (BNVA) | payer OTHER, SELFPAY | PROVIDERS: PCP Nurse Practitioner Family; Visit Provider Physician Assistant Surgical ==

== ENCOUNTER 2024-03-14 06:59 | Outpatient (REF) | payer OTHER, SELFPAY ==
[2024-03-14 07:58] LABS: Thyroid Stimulating Hormone 3.15 uIU/mL (0.32-4.0)
== END 2024-03-14 07:00 | disposition home or self-care (01) ==
LOC: HO.LAB 06:59
PROVIDERS: PCP Nurse Practitioner; Visit Provider Nurse Practitioner
DX: R53.83 Other fatigue (principal)
CPT/HCPCS: 36415; 84443

== ENCOUNTER 2024-04-04 11:57 | Outpatient (REF) | payer OTHER, SELFPAY ==
--- NOTE | ~2024-04-04 | XR_ITS ---
EXAMINATION: XR PELVIS CLINICAL INFORMATION: Hip pain. COMPARISON: None available. TECHNIQUE: AP view of the pelvis. FINDINGS: Hip joints appear relatively well preserved without significant joint space narrowing. No fracture or malalignment. Pubic symphysis is normal. 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 Facet arthropathy is noted in the lower lumbar spine. No aggressive osseous lesions. Phleboliths are present in the pelvis. No acute soft tissue findings. XR/XR pelvis 1-2V IMPRESSION: 1. No acute osseous findings. 2. Mild osteoarthritis in the SI joints. 3. Facet arthropathy in the lower lumbar spine. Electronically signed by: Mando Carrillo MD 04/29/2024 05:37 PM EDT
== END 2024-04-04 11:58 | disposition home or self-care (01) ==
LOC: HO.HOSX 11:57
PROVIDERS: Visit Provider Orthopaedic Surgery
DX: M25.559 Pain in unspecified hip (principal); M70.62 Trochanteric bursitis, left hip
CPT/HCPCS: 20610; 72170

== ENCOUNTER 2024-04-04 13:09 | Outpatient (AMB) | payer OTHER, SELFPAY ==
--- NOTE | 2024-04-04 13:13 | MHC.OFFVIS ---
Intake Visit Reasons: newprob-pain in the left hip Intake Note: Mariia is a 38 year old female who presents today for a new problem visit with complaints of left hip pain. Pt complains of bilateral hip pain, worse in the left ,while sleeping,sitting and walking Allergies acetaminophen [Percocet] Allergy (Unknown, Verified 08/02/23 13:58) hives oxycodone [Percocet] Allergy (Unknown, Verified 08/02/23 13:58) hives HPI HPI newprob-pain in the left hip: Details: Mariia is a 38 year old female who presents today for a new problem visit with complaints of left hip pain. She denies groin pain. Her hip pain bothers her at night and is over the greater trochanter on both sides but the left is more problematic. HPI Comments Details: Mariia is a 38 year old female who presents today for a new problem visit with complaints of left hip pain. Pt complains of bilateral hip pain, worse in the left ,while sleeping,sitting and walking PFSH Medical History Boils Surgical History Hx of cholecystectomy Hx of section Hx of plastic surgery Hx of carpal tunnel repair Family History Maternal Grandfather Skin cancer Social History Alcohol intake: current Alcohol intake frequency: holidays/special occasions only Patient Tobacco Use Status: Current everyday Tobacco user Cigarettes Per Day: 6 Physical Exam Extrem Other: Tenderness to palpation left greater trochanter Office Procedures Joint Injection/Aspiration Joint Injection/Aspiration Details: Injected 1 mL of Decadron and 3 mL 1% lidocaine and 3 mL of 0.25% Marcaine. Site was prepped using aseptic technique. Patient tolerated the procedure well. Primary Site: other (left greater troch bursa) Approach Used: posterolateral Coding 00295 - Large joint Procedure code (CPT) selection complete Results Reviewed Results Reviewed: Very mild bilateral hip arthritis Assessment & Plan Assessment & Plan (1) Greater trochanteric bursitis of left hip: Code(s): M70.62 - Trochanteric bursitis, left hip Category: Medical Plan: Trochanteric bursitis. We discussed options. I recommend physical therapy. An order was placed. Orders: Orders PT Evaluation and Treatment 04/04/24 M70.62 - Trochanteric bursitis, left hip XR pelvis 1-2V 04/04/24 M25.559 - Pain in unspecified hip Coding Level of Care Code Est Pt Level 3 (52131) Diagnoses Greater trochanteric bursitis of left hip M70.62 CPT Codes Coding - 78919 Large joint: 83532 - Large joint ([id number])
== END 2024-04-04 13:37 | disposition home or self-care (01) ==
PROVIDERS: PCP Nurse Practitioner Family; Visit Provider Orthopaedic Surgery
DX: M70.62 Trochanteric bursitis, left hip (principal)
CPT/HCPCS: 20610; 99213

== ENCOUNTER 2024-04-16 06:21 | Outpatient (REF) | payer OTHER, SELFPAY ==
[2024-04-16 06:35] LABS: MANUAL DIFF FLAG NO
[2024-04-16 07:28] LABS: Basophils Percent Auto 0.8 % (0-2); Eosinophils Absolute Auto 0.1 X10*3/uL (0.0-0.4); Eosinophils Percent Auto 2.8 % (0-4); Hematocrit 36.8 % (37.0-47.0); Hemoglobin 11.9 g/dl (12.0-16.0); Imm Gran Abs Auto 0.04 X10*3/uL (0.00-0.03); Imm Gran Pct Auto 0.8 % (0.0-0.4); Immature Retic Fraction 22.5 % (3.0-15.9); Lymphocytes Absolute Auto 1.5 X10*3/uL (1.2-4.9); Lymphocytes Percent Auto 29.7 % (20-40); Mean Corpuscular HGB Conc 32.3 g/dl (31.0-35.0); Mean Corpuscular Volume 80.5 fL (80.0-98.0); Mean Platelet Volume 11.1 fL (9.4-12.3); Monocytes Absolute Auto 0.4 X10*3/uL (0.1-1.2); Monocytes Percent Auto 7.4 % (2-11); Neutrophils Absolute Auto 2.9 x10*3/uL (2.0-8.3); Neutrophils Percent Auto 58.5 % (45-73); Platelet Count 384 X10*3/uL (160-400); Red Blood Count 4.57 X10*6/uL (4.20-5.50); Red Cell Distribution Width 15.6 % (11.0-16.0); Retic HGB Equivalent 30.7 pg (30.0-35.0); Reticulocyte Percent 1.7 % (0.5-1.8); Reticulocytes Absolute 0.077 X10*6/uL (0.026-0.095)
[2024-04-16 07:56] LABS: Iron 34 mcg/dL (30-160); Percent Iron Saturation 9 % (15-50); Total Iron Binding Capacity 373 mcg/dL (228-428); Unsaturated Iron Binding 339 ug/dL
[2024-04-16 08:18] LABS: Lactate Dehydrogenase 139 U/L (122-220)
[2024-04-16 08:21] LABS: Ferritin 6 ng/mL (10-250)
[2024-04-16 08:28] LABS: Folate 14.2 ng/mL (> or = 4.0); Vitamin B12 303 pg/mL (200-900)
[2024-04-17 08:23] LABS: Transferrin 347 mg/dL (188-341)
== END 2024-04-16 06:22 | disposition home or self-care (01) ==
LOC: HO.LAB 06:21
PROVIDERS: PCP Nurse Practitioner Family; Visit Provider Nurse Practitioner Family
DX: E03.9 Hypothyroidism, unspecified (principal)
CPT/HCPCS: 36415; 82607; 82728; 82746; 83540; 83615; 84443; 84466; 85025; 85045

== ENCOUNTER → 2024-10-14 13:16 | Outpatient (BNVA) | payer OTHER, SELFPAY | PROVIDERS: PCP Nurse Practitioner Family; Visit Provider Surgery ==

== ENCOUNTER 2024-10-16 08:14 | Outpatient (AMB) | payer OTHER, SELFPAY ==
--- OUTSIDE RECORDS SUMMARY | 2024-10-16 08:36 | XMS_ITS | Patient Health Record ---
Author Organization [facility] Address [address] [place] [address] Care Team Providers Care Allergist/Immunologist Name Role Phone Chelsie Garcia Primary Care Provider Unavail able Hitesh eDe Unavailable [phone] Allergies Allergen (clinical drug ingredient) Drug/Non Drug Allergy documented on EMR Reaction Allergy Type Onset Date Status acetaminophen / oxycodone Percocet Unknown Drug Allergy Active Reason For Referral No Information Medications Medication SIG (Take, Route, Frequency, Duration) Notes Start Date End Date Status Levo-Dromoran Not-Ta christy Zoloft Active Omeprazole Active Camrese Active Levothyroxine Sodium Active ALPRAZolam Active Social History Tobacco Use: Social History Observation Description Date Details (start date - stop date) Never Smoker NA - NA Tobacco Use/Smoking Question Answer Notes Are you a: nonsmoker Additional Findings: Tobacco Non-User Current no n-smoker Alcohol Screen Question Answer Notes Did you have a drink containing alcohol in the p ast year? Yes Points 0 Interpretation Negative Problems Problem Type SNOMED Code ICD Code Onset Dates Problem Status W/U Status Risk Notes Problem Bursitis (15988747) Bursitis (727.3) Active confirmed Problem Metatarsalgia (21966574) Metatarsalgia (726.70) Active confirmed Problem Tailors bunion (2523073) Tailors Bunion (727.1) Active confirmed Plan Of Treatment No Information Insurance Providers Payer Name Payer Address Payer Phone Subscriber Number Group Number Insured Name Patient Relationship to Insured Coverage Start Date Coverage End Date [facility] [address] [place] [address] [id number] Mariia Stanley Self - patient is the insured Medical (General) History Medical History History ICD Code Anxiety Back pain Broken bones Depression Gall bladder problems Thyroid disorder Chicken pox Reflux Surgical History Surgery Date(Month/Year) Justine muhammad 04/2011 Carpal Tunnel 11/2012 Gall Bladder 03/2014
--- NOTE | 2024-10-16 11:59 | MHC.OFFVISWM ---
VS Expanded 10/16/24 12:11 Height 5 ft Weight 216 lb 2 oz BMI 42.2 Body Fat % 44.6 Body Fat Mass 96.4 Fat Free Mass 119.8 Visceral Fat Rating 13 Body Water % 39.6 Body Water Mass 85.6 Basal Metabolic Rate/Score 1,687 Intake Visit Reasons: [facility] BMI 42.2 Allergies acetaminophen [Percocet] Allergy (Unknown, Verified 10/16/24 11:59) hives oxycodone [Percocet] Allergy (Unknown, Verified 10/16/24 11:59) hives Medication List - Last Reconciled 10/16/24 by Patrick Sanders MD ibuprofen 800 mg PO Q8H PRN MDD 2400 levothyroxine 137 mcg PO DAILY omeprazole 20 mg PO DAILY sertraline (Zoloft) mg HPI HPI [facility] BMI 42.2: Details: Start time: 11.50am, End time: 12.35pm ?I spent 40 minutes speaking with the patient on the phone plus an additional 5 minutes reviewing and updating records for a total of 45 minutes HPI Comments Details: Previous weight loss efforts: WW, self diets, Phentermine, [facility] program Wakes up: 3.30am, Sleeps: 10pm Breakfast: 6-8am (donut, bagel) Lunch: 12.30pm (sandwich, soups, salad) Dinner: 5pm (cereal) Snacks: 10am (chips), 4pm (chips), 8pm (ice cream) Exercise:none Fluids: Coffee (3 cups/day with milk), tea: none, soda: Diet Pepsi (1 per day), juice: none, ETOH: 1/wk (1 drink each time) PFSH Medical History (Updated 10/16/24 @ 12:03 by Patrick Sanders MD) Anxiety Depression GERD (gastroesophageal reflux disease) Boils Surgical History Hx of cholecystectomy Hx of section Hx of plastic surgery Hx of carpal tunnel repair Family History Maternal Grandfather Skin cancer Social History Alcohol intake: current Alcohol intake frequency: holidays/special occasions only Patient Tobacco Use Status: Current everyday Tobacco user Cigarettes Per Day: 6 Telehealth Telehealth Telehealth Platform: Telephone Location of provider rendering services: practice address Location of patient: address on file Patient Identification confirmed using: Name, : Yes Telehealth method: voice only Patient verbally consented to treatment: Yes Patient verbally consented to billing insurance company: Yes Patient informed of any privacy concerns related to visit: Yes Minutes spent on Phone/Video with Pt.: 45 Assessment & Plan Assessment & Plan (1) Morbid obesity: Code(s): E66.01 - Morbid (severe) obesity due to excess calories Category: Medical Plan: 1.? Plan for lap sleeve gastrectomy. If diaphragmatic or ventral hernias are present at time of surgery, these will be repaired laparoscopically as well. I emphasized the importance of close follow-up, adherence to instructions and good communication. The surgery does not replace the need to change your lifestlyle which is the cause of the obesity problem. The surgery provides the motivation to try again to change your lifestyle, it reduces the appetite and make the transition to a better lifestyle easier and doubles the amount of weight you would lose compared to doing the lifestyle change without the surgery. You will need to be on a liquid diet with protein shakes for 2 weeks before surgery to maximize weight loss and boost your nutritional status to recover better from surgery and also for the first two weeks after surgery to let the stomach heal before we introduce other foods. After the first 2 weeks we will introduce protein bars and soft foods like scrambled eggs, cottage cheese and yogurt and after the 6th week will introduce meat, fish and cooked vegetables in small amounts. Over time you should be able to eat everything in small amounts. Side effects like nausea, vomiting, heartburn or abdominal pain are not common in the practice unless you are not following in the practice. This operation requires lifetime commitment to following in our practice and communication with me. You will much less weight and experience side effects if you don?t communicate or not following in the practice. Complications are rare and in our practice is about 1/10 of the national average. However, you can develop bleeding that may require transfusion (hasn?t happened for year in the practice), you may from complications (we did not have any deaths in the practice) and infections. Infections are usually a result of breakdown in communication or not understanding or following directions correctly. They are difficult to treat, they can happen during the first 6 weeks, they may require to be in the hospital for weeks or even months, not being able to eat by mouth and you may have drains and surgeries to try and correct the issue. Other risks and complications include possible conversion to an open procedure, leaks, small bowel obstruction, blood clots, cardiac, or pulmonary complications, as terminal press operator complications such as ulcers, insufficient weight loss and vitamin deficiencies. 2. You will receive a link of our software félix to generate an individualized nutritional and exercise plan specific for you. Please send me a screenshot of the plans you will generate Meal to include lean meat (beef, fish, pork, turkey, chicken), or egyptian yogurt, or egg whites, or beans with a salad with olive oil and fruits (berries, pears, apples, kiwi). Avoid salt, breads, potatoes, rice, pasta, desserts. ?3. If you choose shakes, each shake would be drunk slowly, like coffee in a period of 2 hours. ?4. If you choose bars, cut each bar in 4 pieces and eat each piece in 30min ?to make each bar last 2 hours. ?5. I emphasized the importance of measuring accurately the food portion and measure it when serving the food in plate ?6. The meal portions include a specific number of forks of meat and salad. You always eat the meat portion but you can replace up to half of salad/vegetables portion with rice, potatoes or pasta, or a fruit ?if you like. The less you do it the better weight loss will be. ?7. One full-size fork is what it can be scooped on the fork without falling aside and not what can be bit with the fork. Use regular forks like those you find in a typical restaurant. ?8.? Please buy the body composition scale we discussed and send me weight measurements as soon as possible and then once a week. Always include your diet and exercise plan. 9. The best choice would be to purchase a stationary bike, elliptical or treadmill at home that can track calories. Let me know if you do so I can give you an exercise plan. ?10.?It is important of avoiding and for at least 18 months postoperatively and has been discussed at the infosession. ?11. Goal is to lose at least 1.5-2lbs per week ?12. Goal to lose 10% of your weight before surgery, which is about 22lbs. Ultimate weight goal: 194lbs before surgery 13. Please follow the diet plan exactly without any change. If you don't like something about the plan or you feel hungry you need to communicate with me so I can help you revise the plan. You should not change the plan yourself. 14. To be scheduled for EGD due to the history of GERD. The possibility of biopsies was discussed. Patient needs to avoid use of NSAIDs and aspirin for 1 week prior to EGD. You must be on liquids only the day before your endoscopy. Risks of perforation and bleeding was discussed with the patient. This will be an outpatient procedure with IV sedation. Orders: Orders H Pylori Breath Test Today E03.9 - Hypothyroidism, unspecified, E66.01 - Morbid (severe) obesity due to excess calories, K21.9 - Gastro-esophageal reflux disease without esophagitis Lipid Panel Today E03.9 - Hypothyroidism, unspecified, E66.01 - Morbid (severe) obesity due to excess calories, K21.9 - Gastro-esophageal reflux disease without esophagitis IRON PROFILE Today E03.9 - Hypothyroidism, unspecified, E66.01 - Morbid (severe) obesity due to excess calories, K21.9 - Gastro-esophageal reflux disease without esophagitis Comprehensive Met. Panel Today E03.9 - Hypothyroidism, unspecified, E66.01 - Morbid (severe) obesity due to excess calories, K21.9 - Gastro-esophageal reflux disease without esophagitis Vitamin B12 and Folate Today E03.9 - Hypothyroidism, unspecified, E66.01 - Morbid (severe) obesity due to excess calories, K21.9 - Gastro-esophageal reflux disease without esophagitis Vitamin A Today E03.9 - Hypothyroidism, unspecified, E66.01 - Morbid (severe) obesity due to excess calories, K21.9 - Gastro-esophageal reflux disease without esophagitis Ferritin Today E03.9 - Hypothyroidism, unspecified, E66.01 - Morbid (severe) obesity due to excess calories, K21.9 - Gastro-esophageal reflux disease without esophagitis Vitamin D 25-OH Total Today E03.9 - Hypothyroidism, unspecified, E66.01 - Morbid (severe) obesity due to excess calories, K21.9 - Gastro-esophageal reflux disease without esophagitis US abdomen comp w elastography Today E03.9 - Hypothyroidism, unspecified, E66.01 - Morbid (severe) obesity due to excess calories, K21.9 - Gastro-esophageal reflux disease without esophagitis FL upper GI w air Today E03.9 - Hypothyroidism, unspecified, E66.01 - Morbid (severe) obesity due to excess calories, K21.9 - Gastro-esophageal reflux disease without esophagitis Insulin Today E03.9 - Hypothyroidism, unspecified, E66.01 - Morbid (severe) obesity due to excess calories, K21.9 - Gastro-esophageal reflux disease without esophagitis Hemoglobin A1c Today E03.9 - Hypothyroidism, unspecified, E66.01 - Morbid (severe) obesity due to excess calories, K21.9 - Gastro-esophageal reflux disease without esophagitis Complete Blood Count Auto Diff Today E03.9 - Hypothyroidism, unspecified, E66.01 - Morbid (severe) obesity due to excess calories, K21.9 - Gastro-esophageal reflux disease without esophagitis Zinc Today E03.9 - Hypothyroidism, unspecified, E66.01 - Morbid (severe) obesity due to excess calories, K21.9 - Gastro-esophageal reflux disease without esophagitis C Reactive Protein Today E03.9 - Hypothyroidism, unspecified, E66.01 - Morbid (severe) obesity due to excess calories, K21.9 - Gastro-esophageal reflux disease without esophagitis Vitamin B1 Today E03.9 - Hypothyroidism, unspecified, E66.01 - Morbid (severe) obesity due to excess calories, K21.9 - Gastro-esophageal reflux disease without esophagitis TSH reflex Free T4 Today E03.9 - Hypothyroidism, unspecified, E66.01 - Morbid (severe) obesity due to excess calories, K21.9 - Gastro-esophageal reflux disease without esophagitis XR chest 2V Today E03.9 - Hypothyroidism, unspecified, E66.01 - Morbid (severe) obesity due to excess calories, K21.9 - Gastro-esophageal reflux disease without esophagitis ECG 12 lead EKG Today E03.9 - Hypothyroidism, unspecified, E66.01 - Morbid (severe) obesity due to excess calories, K21.9 - Gastro-esophageal reflux disease without esophagitis Referrals Behavioral Health Referral E03.9 - Hypothyroidism, unspecified, E66.01 - Morbid (severe) obesity due to excess calories, K21.9 - Gastro-esophageal reflux disease without esophagitis Nutrition/Dietitian Referral E03.9 - Hypothyroidism, unspecified, E66.01 - Morbid (severe) obesity due to excess calories, K21.9 - Gastro-esophageal reflux disease without esophagitis
[2024-10-16 12:11] VITALS: BMI 42.2
== END 2024-10-16 12:35 | disposition home or self-care (01) ==
LOC: HO.HBS 08:14
PROVIDERS: PCP Nurse Practitioner Family; Visit Provider Surgery
DX: E66.813 Obesity, class 3 (principal); Z68.41 Body mass index [BMI] 40.0-44.9, adult
CPT/HCPCS: 99204

== ENCOUNTER 2024-10-17 06:15 | Outpatient (REF) | payer OTHER, SELFPAY ==
[2024-10-17 06:55] LABS: MANUAL DIFF FLAG NO
[2024-10-17 07:27] LABS: Basophils Percent Auto 0.9 % (0-2); Eosinophils Absolute Auto 0.1 X10*3/uL (0.0-0.4); Eosinophils Percent Auto 3.3 % (0-4); Hematocrit 35.6 % (37.0-47.0); Hemoglobin 11.7 g/dl (12.0-16.0); Imm Gran Abs Auto 0.01 X10*3/uL (0.00-0.03); Imm Gran Pct Auto 0.2 % (0.0-0.4); Lymphocytes Absolute Auto 1.4 X10*3/uL (1.2-4.9); Lymphocytes Percent Auto 32.1 % (20-40); Mean Corpuscular HGB Conc 32.9 g/dl (31.0-35.0); Mean Corpuscular Hemoglobin 25.6 pg (27.0-33.0); Mean Corpuscular Volume 77.9 fL (80.0-98.0); Mean Platelet Volume 10.9 fL (9.4-12.3); Monocytes Absolute Auto 0.3 X10*3/uL (0.1-1.2); Monocytes Percent Auto 7.5 % (2-11); Neutrophils Absolute Auto 2.4 x10*3/uL (2.0-8.3); Platelet Count 361 X10*3/uL (160-400); Red Blood Count 4.57 X10*6/uL (4.20-5.50); Red Cell Distribution Width 14.6 % (11.0-16.0); White Blood Count 4.3 X10*3/uL (4.8-10.8)
[2024-10-17 07:42] LABS: Estimated Average Glucose 111 mg/dL; Hemoglobin A1c % 5.5 % (<6.0); Total Hemoglobin (HGBA1C) 3100.9109 umol/L
[2024-10-17 08:08] LABS: Alanine Aminotransferase 14 U/L (0-31); Albumin Level 3.9 g/dL (3.5-5.0); Alkaline Phosphatase 70 U/L (39-117); Anion Gap 10 (12-20); Aspartate Amino Transferase 16 U/L (5-31); Bilirubin Total 0.3 mg/dL (0.0-1.0); Blood Urea Nitrogen 9 mg/dL (9-16); C Reactive Protein 0.36 mg/dL (< or = 0.50); Calcium 8.9 mg/dL (8.4-10.2); Carbon Dioxide 25 mmol/L (22-29); Chloride 109 mmol/L (96-108); Cholesterol 245 mg/dL (<200); Estimated Glomerular Filt Rate > 60; Glucose Random 89 mg/dL (60-115); HDL Cholesterol 60 mg/dL (>40); Iron 42 mcg/dL (30-160); LDL Cholesterol Calculated 157 mg/dL (<100); Percent Iron Saturation 12 % (15-50); Potassium 4.3 mmol/L (3.3-5.1); Sodium 140 mmol/L (135-145); Total Iron Binding Capacity 348 mcg/dL (228-428); Total Protein 7.1 g/dL (6.5-8.0); Triglycerides 143 mg/dL (<150); Unsaturated Iron Binding 306 ug/dL
[2024-10-17 08:30] LABS: Ferritin 7 ng/mL (10-250); TSH reflex Free T4 1.98 uIU/mL (0.32-4.0)
[2024-10-17 08:31] LABS: Vitamin B12 346 pg/mL (200-900)
[2024-10-17 08:33] LABS: Insulin 9 uU/mL (2-29)
[2024-10-21 10:18] LABS: Zinc 71 mcg/dL (60-130)
[2024-10-22 01:54] LABS: Vitamin A 49 mcg/dL (38-98)
[2024-10-27 08:49] LABS: Vitamin B1 12 nmol/L (8-30)
== END 2024-10-17 06:16 | disposition home or self-care (01) ==
LOC: HO.LAB 06:15
PROVIDERS: PCP Nurse Practitioner; Visit Provider Surgery
DX: E66.01 Morbid (severe) obesity due to excess calories (principal); E03.9 Hypothyroidism, unspecified; K21.9 Gastro-esophageal reflux disease without esophagitis; Z13.1 Encounter for screening for diabetes mellitus
CPT/HCPCS: 36415; 80053; 80061; 82306; 82607; 82728; 82746; 83036; 83525; 83540; 84425; 84443; 84590; 84630; 85025; 86140

== ENCOUNTER 2024-10-21 13:24 | Outpatient (REF) | payer OTHER, SELFPAY ==
--- NOTE | ~2024-10-21 | XR_ITS ---
EXAMINATION: XR CHEST CLINICAL INFORMATION: E66.01 - Morbid (severe) obesity due to excess calories COMPARISON: January 28, 2013 TECHNIQUE: 2 views of the chest were obtained. FINDINGS: No consolidation, pleural effusion or pneumothorax. Cardiomediastinal silhouette size is normal. Mild multilevel thoracolumbar spondylosis. Vascular clips in the right upper quadrant abdomen and likely cholecystectomy. XR/XR chest 2V IMPRESSION: No acute airspace disease. Electronically signed by: Harshad Gutierrez MD 10/22/2024 09:44 AM EDT
--- OUTSIDE RECORDS SUMMARY | 2024-10-21 15:08 | XMS_ITS | Patient Health Record ---
Author Organization [facility] Address [address] [place] [address] Care Team Providers Care Tassel Clipper Name Role Phone Chelsie Garcia Primary Care Provider Unavail able Hitesh Dee Unavailable [phone] Allergies Allergen (clinical drug ingredient) Drug/Non Drug [...] Status W/U Status Risk Notes Problem Bursitis (22595479) Bursitis (727.3) Active confirmed Problem Metatarsalgia (47252160) Metatarsalgia (726.70) Active confirmed Problem Tailors bunion (5988483) Tailors Bunion (727.1) Active confirmed Plan Of Treatment No Information Insurance Providers Payer Name Payer Address Payer Phone Subscriber Number Group Number Insured Name Patient Relationship to Insured Coverage Start Date Coverage End Date [facility] [address] [place] [address] [phone] [id number] Mariia Stanley Self - patient is the insured Medical (General) History Medical History History ICD Code Anxiety Back pain Broken bones Depression Gall bladder problems Thyroid disorder Chicken pox Reflux Surgical History Surgery Date(Month/Year) Justine muhammad 04/2011 Carpal Tunnel 11/2012 Gall Bladder 03/2014
== END 2024-10-21 13:25 | disposition home or self-care (01) ==
LOC: HO.XRAY 13:24
PROVIDERS: PCP Nurse Practitioner; Visit Provider Surgery
DX: E66.01 Morbid (severe) obesity due to excess calories (principal); E03.9 Hypothyroidism, unspecified; K21.9 Gastro-esophageal reflux disease without esophagitis
CPT/HCPCS: 71046

== ENCOUNTER → 2024-10-21 13:27 | Outpatient (BNV) | payer OTHER, SELFPAY | PROVIDERS: PCP Nurse Practitioner; Visit Provider Radiology Diagnostic Radiology | DX: E03.9 Hypothyroidism, unspecified (principal) | CPT/HCPCS: 71046 ==

== ENCOUNTER → 2024-10-23 12:31 | Outpatient (REF) | payer OTHER, SELFPAY ==
--- NOTE | 2024-10-23 12:34 | ECG_ITS ---
Test Reason : E66.01 - Morbid (severe) obesity due to excess calories Blood Pressure : */* mmHG Vent. Rate : 84 BPM Atrial Rate : 84 BPM P-R Int : 144 ms QRS Dur : 88 ms QT Int : 386 ms P-R-T Axes : -13 19 31 degrees QTcB Int : 456 ms Normal sinus rhythm Normal ECG No previous ECGs available Referred By: Patrick Sanders Electronically Signed By: JJ RAMIREZ
--- OUTSIDE RECORDS SUMMARY | 2024-10-23 14:36 | XMS_ITS | Patient Health Record ---
Author Organization [facility] Address [address] [place] [address] Care Team Providers Care Marble Mason Name Role Phone Chelsie Garcia Primary Care Provider Unavail able Hitesh Dee Unavailable [phone] Allergies Allergen (clinical drug ingredient) Drug/Non Drug [...] Status W/U Status Risk Notes Problem Bursitis (65247510) Bursitis (727.3) Active confirmed Problem Metatarsalgia (37508297) Metatarsalgia (726.70) Active confirmed Problem Tailors bunion (0120814) Tailors Bunion (727.1) Active confirmed Plan Of Treatment No Information Insurance Providers Payer Name Payer Address Payer Phone Subscriber Number Group Number Insured Name Patient Relationship to Insured Coverage Start Date Coverage End Date [facility] [address] [place] [address] [phone] [id number] Mariia Stanley Self - patient is the insured Medical (General) History Medical History History ICD Code Anxiety Back pain Broken bones Depression Gall bladder problems Thyroid disorder Chicken pox Reflux Surgical History Surgery Date(Month/Year) Justine muhammad 04/2011 Carpal Tunnel 11/2012 Gall Bladder 03/2014
== END ==
LOC: HO.CARD 12:31
PROVIDERS: PCP Nurse Practitioner; Visit Provider Surgery
DX: E03.9 Hypothyroidism, unspecified (principal); K21.9 Gastro-esophageal reflux disease without esophagitis; E66.01 Morbid (severe) obesity due to excess calories
CPT/HCPCS: 93005

== ENCOUNTER → 2024-10-23 12:34 | Outpatient (BNV) | payer OTHER, SELFPAY | PROVIDERS: PCP Nurse Practitioner; Visit Provider Internal Medicine | DX: E66.01 Morbid (severe) obesity due to excess calories (principal) | CPT/HCPCS: 93010 ==

== ENCOUNTER 2024-11-08 10:25 | Outpatient (AMB) | payer OTHER, SELFPAY ==
--- NOTE | 2024-11-08 11:00 | A.OFFWM_ITS ---
Intake Intake Visit Reasons: (OV) BH Intake Allergies acetaminophen [Percocet] Allergy (Unknown, Verified 10/16/24 11:59) hives oxycodone [Percocet] Allergy (Unknown, Verified 10/16/24 11:59) hives PFSH Medical History (Updated 10/28/24 @ 17:59 by Patrick Sanders MD) Anxiety Depression GERD (gastroesophageal reflux disease) Boils Surgical History Hx of cholecystectomy Hx of section Hx of plastic surgery Hx of carpal tunnel repair Family History Maternal Grandfather Skin cancer Social History Alcohol intake: current Alcohol intake frequency: holidays/special occasions only Patient Tobacco Use Status: Current everyday Tobacco user Cigarettes Per Day: 6 Behavioral Health Assessment Weight Management Therapy Therapy Notes Details PT is a 39 years old female, who presents for initial visit to complete BH assessment as part of surgical weight loss program. Presenting Concerns Referral Source WMP-Provider. Reason for referral Completion of behavioral health assessment as part of process for weight-loss surgery. Precipitating Event Obesity Living Situation Current Living Situation Own At risk of losing current housing? No Satisfied with current living situation? Yes Comments PT lives with her hisband and 2 children. Food/Weight/Diet Expectations of change Initial goal to lose 10% of her weight before surgery, which is about 22lbs. Ultimate weight goal: 194lbs before surgery PT started the program on 10/16/2024 at 216Lbs. PT is implementing the following: Current meal plan: Combination of shakes, bars and 1 meal at day. Exercise plan: Outdoor walk. Scale: No. History/Relationship with food PT reports she cooks rarely. 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 PT reports she tends to grab food when happy or sad, but doesn't eat when stressed/nervous. At times find herself using food as a reward In her childhood she was rewarded w/ food or after a family incident they will go out for food. Example of meals before starting the program: Breakfast: bread w/ butter, pancakes w/ sausage and solorzano/ Lunch: rice/protein, the bowls available or a sandwich. Dinner: salads during summer, normally a bowl of cereal or would have multiple snacks in the evening. Snacks: cookies, chips. Drinks/Liquids: History/Relationship with weight PT reports she has been overweight her whole life. In HS she was at 230Lbs. She has had a history of going up and down. Her mother had bariatric surgery PT reports she gained a lot of weight after second . In the last 10 years, the patient's Lowest weight was 180Lbs and highest 245Lbs History/Relationship with dieting [facility] - 2 years ago, lost 35Lbs. Different diets, WW, Paleo diet, Ketto, fasting, overexcercising. Binge Eating Do you frequently eat large amounts of food in short periods of time, not feeling physically hungry? No Do you feel out of control when you eat a large amount of food in a short period of time? No Do you eat large amounts of food rapidly and typically alone? No Night Eating Do you wake up at least once during the night to eat? No If you wake up in the night, do you find that it is necessary to eat something in order to fall back asleep? No Do you have little or no appetite in the morning and feel very hungry in the evening, often overeating between dinner and when you go to bed? No Social History Family history and relationship PT is , they have been together since 2003 and have 2 children. Parents are alive, she has an older brother. PT reports good relationships. has a big family, and they're also very close. 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 Developmental history and status None reported. Social support Family. However, she hasn't shared too much about her interest in surgery. Co-workers. Community support None. Muslim/Spirituality None Cultural/Ethnic information . Questionnaires PHQ-9 Over the last 2 weeks, how often have you been bothered by any of the following problems? 1. Little interest or pleasure in doing things: several days 2. Feeling down, depressed, or hopeless: several days 3. Trouble falling or staying asleep, or sleeping too much: not at all 4. Feeling tired or having little energy: several days 5. Poor appetite or overeating: more than half the days 6. Feeling bad about yourself - or that you are a failure or have let yourself or your family down: more than half the days 7. Trouble concentrating on things, such as reading the newspaper or watching television: more than half the days 8. Moving or speaking so slowly that other people could have noticed. Or the opposite - being so fidgety or restless that you have been moving around a lot more than usual: several days 9. Thoughts that you would be better off or of hurting yourself in some way: not at all Total score: 10 Depression Screening Interpretation: Positive (From new Pt pack. New one will be administered before assessment can be finished. ) Depression Screening Done: Yes Source: Developed by Drs. Nikos Byers, Dina Figueroa, Malvin Bradshaw and colleagues, with an educational carmelita from [facility]. Binge Eating Scale Group 1 A. I don't feel self-conscious about my wt. or body size when I'm with others. B. I feel concerned about how I look to others, but it normally does not make me fell disappointed with myself C. I do get self-conscious about my appearance and wt. which makes me feel disappointed in myself. D. I feel very self-conscious about my wt. and frequently I feel intense shame and disgust for myself. I try to avoid social contacts because of my self- consciousness. Response Group 1: C Group 2 A. I don't have any difficulty eating slowly in the proper manner. B. Although I seem to gobble down foods, I don't end up feeling stuffed because of eating to much. C. At times, I tend to eat quickly and then, I feel uncomfortably full afterwards. D. I have the habit of bolting down my food, without really chewing it. When this happens I usually feel uncomfortably stuffed because I've eaten to much. Response Group 2: A Group 3 A. I feel capable to control my eating urges when I want to. B. I feel like I have failed to control my eating more than the average person. C. I feel utterly helpless when it comes to feeling in control of my eating urges. D. Because I feel so helpless about controlling my eating I have become very desperate about trying to get control. Response Group 3: B Group 4 A. I don't have the habit of eating when I'm bored. B. I sometimes eat when I'm bored, but often I'm able to get busy and get my mind off food. C. I have a regular habit of eating when I'm bored, but occasionally, I can use some other activity to get my mind off eating. D. I have a strong habit of eating when I'm bored. Nothing seems to help me breath the habit. Response Group 4: C Group 5 A. I'm usually physically hungry when I eat something. B. Occasionally, I eat something on impulse even though I really am not hungry. C. I have the regular habit of eating foods, that I might not really enjoy, to satisfy a hungry feeling even though physically, I don't need the food. D. Although I'm not physically hungry, I get a hungry feeling in my mouth that only seems to be satisfied when I eat a food, like sandwich, that fills my mouth. Sometimes, when I eat the food to satisfy my mouth hunger, I then spit the food out so I won't gain weight. Response Group 5: B Group 6 A. I don't feel any guilt or self-hate after I overeat. B. After I overeat, occasionally I feel guilt or self-hate. C. Almost all the time I experience strong guilt or self-hate after I overeat. Response Group 6: B Group 7 A. I don't lose total control of my eating when dieting even after periods when I overeat. B. Sometimes when I eat a forbidden food on a diet, I feel like I blew it and eat even more. C. Frequently, I have the habit of saying to myself, I've blown it now, why not go all the way, when I overeat on a diet. When that happens I eat more. D. I have a regular habit of starting a strict diets for myself but I break the diets by going on an eating binge. My life seems to be either a feast or famine. Response Group 7: D Group 8 A. I rarely eat so much food that I feel uncomfortably stuffed afterwards. B. Usually about once a month, I each such a quantity of food, I end up feeling very stuffed. C. I have regular periods during the month when I eat large amounts of food, either at mealtime or at snacks. D. I eat so much food that I regularly feel quite uncomfortable after eating and sometimes a bit nauseous. Response Group 8: B Group 9 A. My level of calorie intake does not go up very high or go down very low on a regular basis. B. Sometimes after I overeat, I will try to reduce my caloric intake to almost nothing to compensate for the excess calories I've eaten. C. I have a regular habit of overeating during the night. It seems that my routine is not to be hungry in the morning but overeat in the evening. D. In my adult years, I have had week-long periods where I practically starve myself. This follows periods when I overeat. It seems I live a life of either feast or famine. Response Group 9: B Group 10 A. I usually am able to stop eating when I want to. I know when enough is enou gh. B. Every so often, I experience a compulsion to eat which I can't seem to control. C. Frequently, I experience strong urges to eat which I seem unable to control, but at other times I can control my eating urges. D. I feel incapable of controlling urges to eat. I have a fear of not being able to stop eating voluntarily. Response Group 10: A Group 11 A. I don't have any problem stopping eating when I feel full. B. I usually can stop eating when I feel full but occasionally overeat leaving me feeling uncomfortably stuffed. C. I have a problem stopping eating once I start and usually I feel un comfortably stuffed after I eat a meal. D. Because I have a problem not being able to stop eating when I want, I sometimes have to induce vomiting to relieve my stuffed feeling. Response Group 11: B Group 12 A. I seem to eat just as much when I'm with others, Family social gatherings as when I'm by myself. B. Sometimes, when I'm with other persons, I don't eat as much as I want to eat because I'm self-conscious about my eating. C. Frequently, I eat only a small amount of food when others are present, because I'm very embarrassed about my eating. D. I feel so ashamed about overeating that I pick times to overeat when I know no one will see me. I feel like a closet eater. Response Group 12: B Group 13 A. I eat three meals a day with only an occasional between meal snack. B. I eat 3 meals a day, but I also normally snack between meals. C. When I am snacking heavily, I get in the habit of skipping regular meals. D. There are regular periods when I seem to be continually eating, with no planned meals. Response Group 13: D Group 14 A. I don't think much about trying to control unwanted eating urges. B. At least some of the time, I feel my thoughts are pre-occupied with trying to control my eating urges. C. I feel that frequently I spend much time thinking about how much I ate or about trying not to eat anymore. D. It seems to me that most of my waking hours are pre-occupied by thoughts about eating or not eating. I feel like I'm constantly struggling not to eat. Response Group 14: C Group 15 A. I don't think about food a great deal. B. I have strong craving for food but they last only for brief periods of time. C. I have days when I can't seem to think about anything else but food. D. Most of my days seem to be pre-occupied with thoughts about food. I feel like I live to eat. Response Group 15: B Group 16 A. I usually know whether or not I'm physically hungry. I take the right portion of food to satisfy me. B. Occasionally, I feel uncertain about knowing whether or not I'm physically hungry. A these times it's hard to know how much food I should take to satisfy me. C. Even though I might know how many calories I should eat, I don't have any idea what is a normal amount of food for me. Response Group 16: C Binge Eating Score: 22 Score less than 17 Minimal Risk Score between 18-26 Moderate Risk Score between 27-46 High Risk Assessment & Plan Assessment & Plan (1) Morbid obesity: Code(s): E66.01 - Morbid (severe) obesity due to excess calories (2) Adjustment disorder: Code(s): F43.20 - Adjustment disorder, unspecified (3) Inappropriate diet or eating habits: Code(s): Z72.4 - Inappropriate diet and eating habits Plan PT not cleared today, will return in 1-2 weeks to continue assessment. Next félix: 11/18/2024 at 12:30, via [employer] (30-min during lunch break) Coding Level of Care Code New Pt Psy Diag Rosanne ([id number]) Patient Type New Diagnoses Morbid obesity E66.01 Adjustment disorder F43.20 Inappropriate diet or eating habits Z72.4 Time Spent (min) 60
== END 2024-11-08 12:01 | disposition home or self-care (01) ==
LOC: HO.HBST 10:26
PROVIDERS: PCP Nurse Practitioner; Visit Provider Counselor Mental Health
DX: E66.01 Morbid (severe) obesity due to excess calories (principal); F43.20 Adjustment disorder, unspecified; Z72.4 Inappropriate diet and eating habits
CPT/HCPCS: 90791

== ENCOUNTER → 2024-11-18 12:37 | Outpatient (AMB) | payer OTHER, SELFPAY ==
--- NOTE | 2024-11-18 12:30 | MHC.WMTHER ---
Intake Intake Visit Reasons: VIDEO BH F/U Allergies acetaminophen [Percocet] Allergy (Unknown, Verified 10/16/24 11:59) hives oxycodone [Percocet] Allergy (Unknown, Verified 10/16/24 11:59) hives COUNT INCLUDES THE [facility] Medical History (Updated 10/28/24 @ 17:59 by Patrick Sanders MD) Anxiety Depression GERD (gastroesophageal reflux disease) Boils Surgical History (Updated 11/22/24 @ 12:52 by Kerri Rodriguez RN) History of tubal ligation Hx of cholecystectomy Hx of section Hx of plastic surgery Hx of carpal tunnel repair Family History Maternal Grandfather Skin cancer Social History Are you a primary emergency care tech to a significant other at home: No Do you presently have visiting nurse or other home services: No Alcohol intake: current Alcohol intake frequency: holidays/special occasions only Patient Tobacco Use Status: Never used Tobacco Cigarettes Per Day: 6 Behavioral Health Assessment Weight Management Therapy Therapy Notes Details Patient (PT) is a 39-year-old female who presents for a second visit to continue her behavioral health () assessment as part of the surgical weight loss program. She began the program on 10/16/2024 at a starting weight of 216 lbs. Her goals include improving her overall health and physical functioning, pursuing weight-loss surgery, and maintaining a healthy weight long-term. PT has a reported history of panic attacks, anxiety, and depression. She is currently prescribed psychotropic medication by her primary care provider (PCP). She denies any history of inpatient psychiatric treatment, mental health crises, or the need for a higher level of care. There are no current or past concerns related to suicidal ideation (SI), suicide planning (SP), suicide attempts (SA), self-harm, or harm to others. During today?s session, we continued the assessment process. PT reported non-adherence to the recommended meal and exercise plan. Emotional concerns were explored, and she was provided with constructive feedback regarding her symptom presentation and management strategies. Presenting Concerns Referral Source WMP-Provider. Reason for referral Completion of behavioral health assessment as part of process for weight-loss surgery. Precipitating Event Obesity Living Situation Current Living Situation Own At risk of losing current housing? No Satisfied with current living situation? Yes Comments PT lives with her hisband and 2 children. Food/Weight/Diet Expectations of change Initial goal to lose 10% of her weight before surgery, which is about 22lbs. Ultimate weight goal: 194lbs before surgery PT started the program on 10/16/2024 at 216Lbs. PT is implementing the following: Current meal plan: Combination of shakes, bars and 1 meal at day. Exercise plan: Outdoor walk. Scale: No. History/Relationship with food PT reports she cooks rarely. 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 PT reports she tends to grab food when happy or sad, but doesn't eat when stressed/nervous. At times find herself using food as a reward In her childhood she was rewarded w/ food or after a family incident they will go out for food. Example of meals before starting the program: Breakfast: bread w/ butter, pancakes w/ sausage and solorzano/ Lunch: rice/protein, the bowls available or a sandwich. Dinner: salads during summer, normally a bowl of cereal or would have multiple snacks in the evening. Snacks: cookies, chips. Drinks/Liquids: History/Relationship with weight PT reports she has been overweight her whole life. In HS she was at 230Lbs. She has had a history of going up and down. Her mother had bariatric surgery PT reports she gained a lot of weight after second . In the last 10 years, the patient's Lowest weight was 180Lbs and highest 245Lbs History/Relationship with dieting [facility] - 2 years ago, lost 35Lbs. Different diets, WW, Paleo diet, Ketto, fasting, overexcercising. Binge Eating Do you frequently eat large amounts of food in short periods of time, not feeling physically hungry? No Do you feel out of control when you eat a large amount of food in a short period of time? No Do you eat large amounts of food rapidly and typically alone? No Night Eating Do you wake up at least once during the night to eat? No If you wake up in the night, do you find that it is necessary to eat something in order to fall back asleep? No Do you have little or no appetite in the morning and feel very hungry in the evening, often overeating between dinner and when you go to bed? No Social History Family history and relationship PT is , they have been together since 2003 and have 2 children. Parents are alive, she has an older brother. PT reports good relationships. has a big family, and they're also very close. Parental/Familial engravings polisher obligations PT has 2 girls, they are 7 and 3. Developmental history and status None reported. Social support Family. However, she hasn't shared too much about her interest in surgery. Co-workers. Community support None. Mandaen/Spirituality None Cultural/Ethnic information . Legal Involvement and History Current or historical involvement with the legal system? None reported Education Highest grade completed HS Preferred learning style Learn by doing and Visual Currently enrolled in educational program? No Interested in further educational program? 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 ) Wants help to find employment? No Meaningful activities Used to paint. Financial Situation Describe current financial situation Often struggles with finance Financial assistance? None Service Service? No Mental Health and Addiction Treatment Current/Past substance abuse? No Comments Alcohol: 1-2 x week, 4-5 drinks. Cigarettes/Tobacco: 7-8 cigarettes at day. Cannabis/Edibles: none. Current/Past addictive behavior concerns? No Psychiatric history The patient denies any history of counseling, inpatient treatment, or mental health crises. There are no current or past concerns related to suicidal ideation (SI), suicide attempts (SA), self-harm, or harm to others. However, her PCP has diagnosed her with depression and anxiety and is prescribing her with Sertraline 100mg 1 a day. She has been on this medication since 2009. PT has a Hx of panic attacks and was getting prescribed Xanax for a while by her previous PCP. She denies any panic symptoms in the last 6 months. PT states that 1-2 weeks before her period starts, she starts feeling depressed, and the last 4-5 days, she has been noticing these patterns in the last 9 months. And before that, she had PPD Sx with both pregnancies. Medical and Physical Health Summary Additional Medical History not covered in history None Additional Sexual History concerns None reported Physical exam in the last year? Yes Questionnaires Binge Eating Scale Group 1 A. I don't feel self-conscious about my wt. or body size when I'm with others. B. I feel concerned about how I look to others, but it normally does not make me fell disappointed with myself C. I do get self-conscious about my appearance and wt. which makes me feel disappointed in myself. D. I feel very self-conscious about my wt. and frequently I feel intense shame and disgust for myself. I try to avoid social contacts because of my self-consciousness. Response Group 1: C Group 2 A. I don't have any difficulty eating slowly in the proper manner. B. Although I seem to gobble down foods, I don't end up feeling stuffed because of eating to much. C. At times, I tend to eat quickly and then, I feel uncomfortably full afterwards. D. I have the habit of bolting down my food, without really chewing it. When this happens I usually feel uncomfortably stuffed because I've eaten to much. Response Group 2: A Group 3 A. I feel capable to control my eating urges when I want to. B. I feel like I have failed to control my eating more than the average person. C. I feel utterly helpless when it comes to feeling in control of my eating urges. D. Because I feel so helpless about controlling my eating I have become very desperate about trying to get control. Response Group 3: B Group 4 A. I don't have the habit of eating when I'm bored. B. I sometimes eat when I'm bored, but often I'm able to get busy and get my mind off food. C. I have a regular habit of eating when I'm bored, but occasionally, I can use some other activity to get my mind off eating. D. I have a strong habit of eating when I'm bored. Nothing seems to help me breath the habit. Response Group 4: C Group 5 A. I'm usually physically hungry when I eat something. B. Occasionally, I eat something on impulse even though I really am not hungry. C. I have the regular habit of eating foods, that I might not really enjoy, to satisfy a hungry feeling even though physically, I don't need the food. D. Although I'm not physically hungry, I get a hungry feeling in my mouth that only seems to be satisfied when I eat a food, like sandwich, that fills my mouth. Sometimes, when I eat the food to satisfy my mouth hunger, I then spit the food out so I won't gain weight. Response Group 5: B Group 6 A. I don't feel any guilt or self-hate after I overeat. B. After I overeat, occasionally I feel guilt or self-hate. C. Almost all the time I experience strong guilt or self-hate after I overeat. Response Group 6: B Group 7 A. I don't lose total control of my eating when dieting even after periods when I overeat. B. Sometimes when I eat a forbidden food on a diet, I feel like I blew it and eat even more. C. Frequently, I have the habit of saying to myself, I've blown it now, why not go all the way, when I overeat on a diet. When that happens I eat more. D. I have a regular habit of starting a strict diets for myself but I break the diets by going on an eating binge. My life seems to be either a feast or famine. Response Group 7: D Group 8 A. I rarely eat so much food that I feel uncomfortably stuffed afterwards. B. Usually about once a month, I each such a quantity of food, I end up feeling very stuffed. C. I have regular periods during the month when I eat large amounts of food, either at mealtime or at snacks. D. I eat so much food that I regularly feel quite uncomfortable after eating and sometimes a bit nauseous. Response Group 8: B Group 9 A. My level of calorie intake does not go up very high or go down very low on a regular basis. B. Sometimes after I overeat, I will try to reduce my caloric intake to almost nothing to compensate for the excess calories I've eaten. C. I have a regular habit of overeating during the night. It seems that my routine is not to be hungry in the morning but overeat in the evening. D. In my adult years, I have had week-long periods where I practically starve myself. This follows periods when I overeat. It seems I live a life of either feast or famine. Response Group 9: B Group 10 A. I usually am able to stop eating when I want to. I know when enough is enough. B. Every so often, I experience a compulsion to eat which I can't seem to control. C. Frequently, I experience strong urges to eat which I seem unable to control, but at other times I can control my eating urges. D. I feel incapable of controlling urges to eat. I have a fear of not being able to stop eating voluntarily. Response Group 10: A Group 11 A. I don't have any problem stopping eating when I feel full. B. I usually can stop eating when I feel full but occasionally overeat leaving me feeling uncomfortably stuffed. C. I have a problem stopping eating once I start and usually I feel uncomfortably stuffed after I eat a meal. D. Because I have a problem not being able to stop eating when I want, I sometimes have to induce vomiting to relieve my stuffed feeling. Response Group 11: B Group 12 A. I seem to eat just as much when I'm with others, Family social gatherings as when I'm by myself. B. Sometimes, when I'm with other persons, I don't eat as much as I want to eat because I'm self-conscious about my eating. C. Frequently, I eat only a small amount of food when others are present, because I'm very embarrassed about my eating. D. I feel so ashamed about overeating that I pick times to overeat when I know no one will see me. I feel like a closet eater. Response Group 12: B Group 13 A. I eat three meals a day with only an occasional between meal snack. B. I eat 3 meals a day, but I also normally snack between meals. C. When I am snacking heavily, I get in the habit of skipping regular meals. D. There are regular periods when I seem to be continually eating, with no planned meals. Response Group 13: D Group 14 A. I don't think much about trying to control unwanted eating urges. B. At least some of the time, I feel my thoughts are pre-occupied with trying to control my eating urges. C. I feel that frequently I spend much time thinking about how much I ate or about trying not to eat anymore. D. It seems to me that most of my waking hours are pre-occupied by thoughts about eating or not eating. I feel like I'm constantly struggling not to eat. Response Group 14: C Group 15 A. I don't think about food a great deal. B. I have strong craving for food but they last only for brief periods of time. C. I have days when I can't seem to think about anything else but food. D. Most of my days seem to be pre-occupied with thoughts about food. I feel like I live to eat. Response Group 15: B Group 16 A. I usually know whether or not I'm physically hungry. I take the right portion of food to satisfy me. B. Occasionally, I feel uncertain about knowing whether or not I'm physically hungry. A these times it's hard to know how much food I should take to satisfy me. C. Even though I might know how many calories I should eat, I don't have any idea what is a normal amount of food for me. Response Group 16: C Binge Eating Score: 22 Score less than 17 Minimal Risk Score between 18-26 Moderate Risk Score between 27-46 High Risk Assessment & Plan Assessment & Plan (1) Anxiety: Code(s): F41.9 - Anxiety disorder, unspecified (2) Major depressive disorder, recurrent, unspecified: Code(s): F33.9 - Major depressive disorder, recurrent, unspecified Plan The assessment could not be completed during this visit. PT has not yet been cleared and will return to continue the evaluation. A PHQ-9 will be administered at the next session. PT is aware of the importance of support before and after surgery to assist with behavioral changes and the management of depressive symptoms, particularly as she is not currently engaged in counseling services. Next félix: 12/12/2024 at 12:30pm (30 min session during her lunch break over the phone). Telehealth Telehealth Telehealth Platform: Doximity Location of provider rendering services: other Location of patient: other (Work. [place]) Patient Identification confirmed using: Name, : Yes Telehealth method: voice only Patient verbally consented to treatment: Yes Patient verbally consented to billing insurance company: Yes Patient informed of any privacy concerns related to visit: Yes Minutes spent on Phone/Video with Pt.: 30 Coding Level of Care Code Established Pt Tele Psytx 30 mins (72627) Patient Type Established Diagnoses Anxiety F41.9 Major depressive disorder, recurrent, unspecified F33.9 Time Spent (min) 30
--- OUTSIDE RECORDS SUMMARY | 2024-11-18 14:53 | XMS_ITS | Patient Health Record ---
Author Organization [facility] Address [address] [place] [address] Care Team Providers Care Pharmacy Assistant Name Role Phone Chelsie Garcia Primary Care Provider Unavail able Hitesh Dee Unavailable [phone] Allergies Allergen (clinical drug ingredient) Drug/Non Drug [...] Status W/U Status Risk Notes Problem Bursitis (43365387) Bursitis (727.3) Active confirmed Problem Metatarsalgia (99745641) Metatarsalgia (726.70) Active confirmed Problem Tailors bunion (2533104) Tailors Bunion (727.1) Active confirmed Plan Of Treatment No Information Insurance Providers Payer Name Payer Address Payer Phone Subscriber Number Group Number Insured Name Patient Relationship to Insured Coverage Start Date Coverage End Date [facility] [address] [place] [address] [phone] [id number] Mariia Stanley Self - patient is the insured Medical (General) History Medical History History ICD Code Anxiety Back pain Broken bones Depression Gall bladder problems Thyroid disorder Chicken pox Reflux Surgical History Surgery Date(Month/Year) Justine muhammad 04/2011 Carpal Tunnel 11/2012 Gall Bladder 03/2014
== END ==
LOC: HO.HBST 12:37
PROVIDERS: PCP Nurse Practitioner; Visit Provider Counselor Mental Health
DX: F41.9 Anxiety disorder, unspecified (principal); F33.9 Major depressive disorder, recurrent, unspecified
CPT/HCPCS: 90832

== ENCOUNTER 2024-11-19 08:00 | Outpatient (REF) | payer OTHER, SELFPAY ==
--- NOTE | ~2024-11-19 | US_ITS ---
EXAMINATION: US ABDOMEN COMPLETE WITH LIVER ELASTOGRAPHY HISTORY: E66.01 - Morbid (severe) obesity due to excess calories TECHNIQUE: Real-time grayscale ultrasound imaging of the abdomen was performed and images were reviewed. COMPARISON: Comparison is made with the prior examination dated 01/21/2013. FINDINGS: Liver: The right lobe of the liver measures 14.8 cm in size. The left lobe of the liver measures 8.5 cm in size. The liver demonstrates normal homogeneous echotexture. No focal mass or intrahepatic biliary ductal dilatation is identified. There is normal hepatopedal flow in the portal vein. Ultrasound elastography of the liver was performed with 10 separate measurements of the liver parenchyma with the patient in the supine position. Measurements were obtained approximately 2 cm below Hbavin's capsule and perpendicular to the capsule. Images are of satisfactory quality. The median shear wave velocity is 1.81 m/s. The interquartile range/median (IQR/median) is 0.20. Gallbladder and biliary tree: The gallbladder is surgically absent. The common bile duct is normal in caliber measuring 3 mm. Kidneys: The right kidney measures 9.9 cm in length. The left kidney measures 10.8 cm in length. The kidneys are unremarkable, without evidence of masses, hydronephrosis, or calculi. Pancreas: The pancreatic head, neck, and body are unremarkable. The pancreatic tail is obscured by bowel gas. Spleen: The spleen is normal in size and contour, measuring 11.1 cm in length. A tiny 2 mm splenic cyst is noted. Abdominal aorta and inferior vena cava: The visualized portions of the abdominal aorta and inferior vena cava are normal in caliber. There is no free fluid in the abdomen. US/US abdomen comp w elastography IMPRESSION: Tiny 2 mm splenic cyst. Otherwise unremarkable abdominal ultrasound. The median shear wave velocity in the liver is 1.81 m/s, corresponding to a median liver stiffness of 10.03 kPa. The IQR/median value is 0.20. This is indicative of a poor quality data set, and the estimated liver stiffness may be unreliable. Findings are indicative of a high elastography value suggestive of compensated advanced chronic liver disease. REFERENCE: Society of Radiologists in Ultrasound Liver Stiffness Thresholds (2020): LIVER STIFFNESS THRESHOLDS: *Shear wave velocity less than 1.3 m/s (Liver Stiffness equal or less than 5 kPa): High probability of being normal. *Shear wave velocity less than 1.7 m/s (Liver Stiffness less than 9 kPa): In the absence of other known clinical signs, rules out compensated advanced chronic liver disease. *Shear wave velocity between 1.7-2.1 m/s (Liver Stiffness 9-13 kPa): Suggestive of compensated advanced chronic liver disease but need further test for confirmation. *Shear wave velocity between 2.1-2.4 m/s (Liver Stiffness 13-17 kPa): Rules in compensated advanced chronic liver disease. *Shear wave velocity greater than 2.4 m/s (Liver Stiffness over 17 kPa): Suggestive of clinically significant portal hypertension. QUALITY OF DATA SET: *IQR/Median value equal or less than 0.15 implies a quality data set. *IQR/Median value over 0.15 implies a poor quality data set. SIGNIFICANT CHANGE FROM PRIOR EXAM: Significant change if liver stiffness measurement is 10% or greater from prior exam. OTHER CONSIDERATIONS: The stage of liver fibrosis may be overestimated in the setting of acute hepatitis, liver inflammation, elevated liver function tests, hepatic vascular congestion, obstructive cholestasis, non-fasting state, and infiltrative diseases such as amyloidosis and lymphoma. In some patients with NAFLD, the liver stiffness thresholds for compensated advanced chronic liver disease may be lower. In causes other than viral hepatitis and NAFLD, liver stiffness thresholds are not well established. Electronically signed by: Nikos Ram MD 11/19/2024 09:30 AM EDT
--- OUTSIDE RECORDS SUMMARY | 2024-11-19 08:07 | XMS_ITS | Patient Health Record ---
Author Organization [facility] Address [address] [place] [address] Care Team Providers Care Recruiting Specialist Name Role Phone Chelsie Garcia Primary Care Provider Unavail able Hitesh Dee Unavailable [phone] Allergies Allergen (clinical drug ingredient) Drug/Non Drug [...] Status W/U Status Risk Notes Problem Bursitis (84899726) Bursitis (727.3) Active confirmed Problem Metatarsalgia (86874813) Metatarsalgia (726.70) Active confirmed Problem Tailors bunion (2337048) Tailors Bunion (727.1) Active confirmed Plan Of Treatment No Information Insurance Providers Payer Name Payer Address Payer Phone Subscriber Number Group Number Insured Name Patient Relationship to Insured Coverage Start Date Coverage End Date [facility] [address] [place] [address] [id number] Mariia Stanley Self - patient is the insured Medical (General) History Medical History History ICD Code Anxiety Back pain Broken bones Depression Gall bladder problems Thyroid disorder Chicken pox Reflux Surgical History Surgery Date(Month/Year) Justine muhammad 04/2011 Carpal Tunnel 11/2012 Gall Bladder 03/2014
== END 2024-11-19 08:01 | disposition home or self-care (01) ==
LOC: HO.US 08:00
PROVIDERS: PCP Nurse Practitioner; Visit Provider Surgery
DX: E66.01 Morbid (severe) obesity due to excess calories (principal); E03.9 Hypothyroidism, unspecified; K21.9 Gastro-esophageal reflux disease without esophagitis
CPT/HCPCS: 76700; 76981

== ENCOUNTER → 2024-11-19 08:02 | Outpatient (BNV) | payer OTHER, SELFPAY | PROVIDERS: PCP Nurse Practitioner; Visit Provider Radiology Diagnostic Radiology | DX: K21.9 Gastro-esophageal reflux disease without esophagitis (principal) | CPT/HCPCS: 76700; 76981 ==

== ENCOUNTER 2024-11-22 12:44 | Day surgery (SDC) | payer OTHER, SELFPAY ==
--- OUTSIDE RECORDS SUMMARY | 2024-11-22 12:11 | XMS_ITS | Patient Health Record ---
Author Organization [facility] Address [address] [place] [address] Care Team Providers Care Hot Dimpling Machine Operator Name Role Phone Chelsie Garcia Primary Care Provider Unavail able Hitesh Dee Unavailable [phone] Allergies Allergen (clinical drug ingredient) Drug/Non Drug [...] Status W/U Status Risk Notes Problem Bursitis (66161922) Bursitis (727.3) Active confirmed Problem Metatarsalgia (51290467) Metatarsalgia (726.70) Active confirmed Problem Tailors bunion (9715883) Tailors Bunion (727.1) Active confirmed Plan Of Treatment No Information Insurance Providers Payer Name Payer Address Payer Phone Subscriber Number Group Number Insured Name Patient Relationship to Insured Coverage Start Date Coverage End Date [facility] [address] [place] [address] [phone] [id number] Mariia Stanley Self - patient is the insured Medical (General) History Medical History History ICD Code Anxiety Back pain Broken bones Depression Gall bladder problems Thyroid disorder Chicken pox Reflux Surgical History Surgery Date(Month/Year) Justine muhammad 04/2011 Carpal Tunnel 11/2012 Gall Bladder 03/2014
--- OUTSIDE RECORDS SUMMARY | 2024-11-22 12:11 | XMS_ITS | Continuity of Care Document ---
[facility] Address [address] [place] [address]- Care Team Providers Care Broadcaster Name Role Phone Matthew ROBERTSON, Kerri Wright Primary Care Physicia n Encounter [facility] Date(s): 10/22/24 - 11/21/24 [facility] [address] [place] [phone]- Encounter Type: Triage Allergies, Adverse Reactions, Alerts Substance Criticality Severity Reaction Reaction Severity Status Percocet 7.5/325 Act niharika Immunizations Given and Recorded Vaccine Date Status Refusal Reason tetanus/diphtheria/pertussis, acel(Tdap) 12/06/19 Recorded tetanus/diphtheria/pertussis, acel(Tdap) 1 12/07/16 Recorded 1Result Comment: [08/18/2017] [facility] acetaminophen 325 mg oral tablet 650 mg, By Mouth, Every 4 hours, not to exceed 4000 mg/day, # 50 tablet, Refills 1, Tot. Refills 1,Maintenance, 03/02/20 7:36:00 AM EDT, Route to Pharmacy Electronically, [facility]/pharmacy #[id number], 150, cm,03/02/20 0:15:00 EDT, Height, 111.4, kg, 02/28/20 14:31:00 EDT, Dry Weight Start Date: 03/02/20 Status: Ordered Quantity: 50.0 Unit: tablet Repeat number: 2 ibuprofen 800 mg oral tablet 1, tablet, By Mouth, 3 times a day, PRN, WITH FOOD OR MILK, # 90 tablet, Refills 1, Maintenance, ASNEEDED FOR MODERATE PAIN, 08/15/23 7:37:00 AM EST, Route to Pharmacy Electronically, [id number],150, cm, 07/28/23 12:33:00 EST, Height Start Date: 08/15/23 Status: Ordered Quantity: 90.0 Unit: tablet Repeat number: 1 levothyroxine 0.137 mg oral tablet 1 tablet, By Mouth, Daily, # 30 tablet, 6 Refills, Maintenance, 11/19/24 3:39:00 PM EDT, [facility], 150, cm, 05/20/24 14:47:00 EDT, Height Start Date: 11/19/24 Status: Ordered Quantity: 30.0 Unit: tablet Repeat number: 1 omeprazole 20 mg oral enteric coated capsule 1 capsule, By Mouth, Daily, # 90 capsule, 1 Refills, Maintenance, 05/28/24 3:29:00 PM EDT, [id number], 150, cm, 05/20/24 14:47:00 EDT, Height Start Date: 05/28/24 Status: Ordered Quantity: 90.0 Unit: capsule Repeat number: 1 sertraline 100 mg oral tablet 1 tablet, By Mouth, Daily, # 90 tablet, 0 Refills, Maintenance, 10/22/24 1:43:00 PM EDT, [facility], Please ask pt to call office to schedule an appt for further refills;, 150, cm, 05/20/24 14:47:00EDT, Height Start Date: 10/22/24 Status: Ordered Quantity: 90.0 Unit: tablet Repeat number: 1 Problem List Condition Confirmation Course Effective Dates Status Health St atus Informant Abscess, gluteal, right Confirmed Active Anemia Confirmed Active Candidiasis Confirmed Active Cellulitis of right thumb Confirmed Active Cosmetic surgery requested Confirmed Active CTS - Carpal tunnel syndrome Confirmed Active Depression Confirmed Active Depression with anxiety Confirmed 10/30/12 Active Gallstones Confirmed 01/22/13 Active GERD (gastroesophageal reflux disease) Confirmed Active Hypothyroid Confirmed Active Obesity, Class III, BMI 40-49.9 (morbid obesity) Confirmed Active Obesity, morbid Confirmed 10/30/12 Active Confirmed Active Severe obesity Confirmed Active Social History Social History Type Response Smoking Status Never smoker entered on: 10/12/15 Sex Female Sex Representation Female (finding) Patient Care team information Care Team Personnel Name: Dariel Anne Marie Position: [facility] PALLETIZER MD Member Role: Lifetime PALLETIZER Physician Name: Kerri Castro NP Position: [facility] PCO Associate Professional Member Role: PCP Address: [address] [place] [phone]- Telecom: Care Team Related Persons Name: KHOI LOPEZ Name: AMI GAINES Name: JOSE GAINES Insurance Providers Guarantor name: [facility] [employer] Plan Information #: 1 Payer: BLUE BENEFIT [employer] PPO Member Number: NA Policy Number: NA Group Number: NA
[2024-11-22 13:04] VITALS: BP 119/83; PULSE 74; RESP 12; TEMP 36.7; O2SAT 98; BMI 42.6
[2024-11-22 13:07] LABS: UPreg QC Valid YES; Urine Pregnancy NEGATIVE (NEGATIVE)
[2024-11-22] MEDS: Lactated Ringers 1,000 ML 80 ML IVCONT (13:16)
--- NOTE | 2024-11-22 14:33 | P.CONAN_ITS ---
[facility] Active Problems Active Problems: All Active Problems Vitamin B12 deficiency (Acute) Vitamin D deficiency (Acute) Iron deficiency (Acute) Greater trochanteric bursitis of left hip (Acute) Obesity (BMI 30-39.9) (Acute) Hypothyroid (Acute) Morbid obesity (Acute) Body mass index 45.0-49.9, adult (Acute) History of arthroscopy of right knee (Acute) Valgus deformity, not elsewhere classified, right knee (Acute) Osteoarthritis of right knee (Acute) Anxiety (Acute) Depression (Acute) GERD (gastroesophageal reflux disease) (Acute) Past Medical History Medical History (Updated 10/28/24 @ 17:59 by Patrick Sanders MD) Anxiety Depression GERD (gastroesophageal reflux disease) Boils Family History Family History Maternal Grandfather Skin cancer Family history of problems with anesthesia: No Surgical History Surgical History (Updated 11/22/24 @ 12:52 by Kerri Rodriguez RN) History of tubal ligation Hx of cholecystectomy Hx of section Hx of plastic surgery Hx of carpal tunnel repair History of Problems with Anesthesia: No Social History Social History Are you a primary child care development specialist to a significant other at home: No Do you presently have visiting nurse or other home services: No Alcohol intake: current Alcohol intake frequency: holidays/special occasions only Patient Tobacco Use Status: Never used Tobacco Cigarettes Per Day: 6 Use of substances other than those prescribed or required for medical reasons: No Have you been hit, kicked, punched, or otherwise hurt by someone within the past year? If so, by whom?: No Are you DNR?: No Advance Directives: No Advance Directives Information Provided: Yes Patient : No FDLMP: 11/12/2024 Meds Allergies Allergy/AdvReac Type Severity Reaction Status Date / Time acetaminophen [Percocet] Allergy Unknown hives Verified 10/16/24 11:59 oxycodone [Percocet] Allergy Unknown hives Verified 10/16/24 11:59 Active Medications: Current Medications Lactated Ringer's (Lr) 1,000 mls @ 80 mls/hr IVCONT .[id number] DOROTHY Last Admin: 11/22/24 13:16 Dose: 80 mls/hr Home Medications ?Medication ?Instructions ?Recorded ?Confirmed ?Last Taken ?Type ibuprofen 800 mg tablet 800 mg PO Q8H PRN Pain, Moderate 09/20/20 10/16/24 09/20/20 07:30 History omeprazole 20 mg capsule,delayed 20 mg PO DAILY 09/20/20 10/16/24 09/19/20 20:00 History release sertraline 100 mg tablet (Zoloft) mg 09/20/20 10/16/24 09/19/20 20:00 History levothyroxine 137 mcg tablet 137 mcg PO DAILY 10/14/24 10/16/24 Unknown History Exam Height,Weight and Vital Signs: Height 5 ft Weight 99 kg Last Vital Signs Temp 98.0 F 11/22/24 13:04 Pulse 74 11/22/24 13:04 Resp 12 11/22/24 13:04 BP 119/83 11/22/24 13:04 Pulse Ox 98 11/22/24 13:04 O2 Del Method Room Air 11/22/24 13:04 Pertinent Lab Results Pertinent Lab Results: Laboratory Tests 11/22/24 12:55 Urine Test NEGATIVE Airway Mallampati Class: II (caps lower laterally) TM Dist: >3cm Neck ROM: Full Heart: rrr Lungs: cta Assessment and Plan Assessment Anesthesia Assessment: Anesthesia Plan Discussed and Chart Reviewed Final Anesthetic Review Family History of Problems with Anesthesia: No History of Problems with Anesthesia: No NPO: Yes ASA Class: III Final Preanesthetic Review: No Changes in Pt Med Stat, Meds/Allgs Chart Reviewed and Consent Obtained/Reviewed Patient Risk: Intermediate Procedure Risk: Intermediate Anesthetic Plan Anesthetic Plan: MAC: Disposition: Standard PACU
--- NOTE | 2024-11-22 14:33 | MHC.SHP ---
Pre-Procedural Eval Section A - 24 Hr Update-Section A only Date of Service: 11/22/24 The patient is an INPATIENT: No The patient has been examined within 24 hours of the surgical procedure. The History & Physical has been completed within 30 days and I have reviewed it.: Yes Section B - Complete if H&P > 30 days Chief Complaint: Morbid (severe) obesity due to excess calories Details of Present Illness: GERD Relevant Family History (Specify if Yes): No Relevant Social History: None Present Medications: None Medical History: No relevant PMH History of Previous Operations: No relevant previous surgery Allergies: Allergies Allergy/AdvReac Type Severity Reaction Status Date / Time acetaminophen [Percocet] Allergy Unknown hives Verified 10/16/24 11:59 oxycodone [Percocet] Allergy Unknown hives Verified 10/16/24 11:59 Review of Systems Sugical H&P ROS: Negative: Constitution, Cardiovascular, Respiratory, Neurological, Psychiatric, Hem-Onc, Allergic/Immunologic, Gastrointestinal, Genitourinary, Musculoskeletal, Integumentary, Endocrine and Eyes/Ears/Nose/Throat Exam Surgical H&P Exam: Normal: HEENT, Normal: Heart, Normal: Lungs, Normal: Extremities, Normal: Abdomen, Normal: Skin and Normal: Neurological Plan Diagnosis/Plan: Unchanged (EGD to assess etiology of GERD. Risks of bleeding and perforation were discussed with the patient and she is in agreement with the plan.) I have reviewed the history and physical and performed a pertinent physical examination on my patient. No changes have occurred unless specified. Time Spent With Patient Time: Total time managing care of this patient today ____ minutes.
--- NOTE | 2024-11-22 14:38 | PM.OP ---
Brief Operative Note Date of Service: 11/22/24 Pre-op diagnosis: GERD Post-op diagnosis: same Procedure: PROCEDURE DATE: 11/22/2024 PREOPERATIVE DIAGNOSIS: GERD POSTOPERATIVE DIAGNOSIS: ?Same as above. Small diaphragmatic hernia PROCEDURE: [id number] with biopsies Surgeon: Vivienne Sanders M.D.. Ph.D. Harness Rigger: None ? Anesthesia: IV sedation Estimated blood loss: ?Minimal FINDINGS AND PROCEDURE: ? OPERATIVE INDICATIONS: ?The patient is a 39 year old female known to me who is interested in bariatric surgery. The patient has GERD. Based on this information I recommended an upper endoscopy to evaluate the patient's symptoms. Risks and complications of the surgery were discussed with the patient in advance particularly the possibility of perforation or bleeding that may require surgical intervention. The patient understood the risks and was in agreement with the plan. ? PROCEDURE: After informed consent was obtained by the patient, the patient was ?transferred to the Operating Room and was placed in the supine position.? After successful induction of IV sedation, a mouth block was inserted and the patient was placed in the left lateral decubitus position. An upper endoscopy was performed next, the oropharynx and esophagus appeared within the normal limits. There was a small diaphragmatic hernia. The z-line was smooth. Two biopsies were obtained from the distal esophagus 2-3 cm proximal to the GE junction and two additional biopsies from the GE junction. The stomach was entered and it appeared to be of normal size. There was no gastritis. There was no stricture or ulcer. A biopsy was obtained from the gastricfundus and the antrum. No significant bleeding was noted from any of the biopsy sites. Retroflexion of the scope confirmed the presence of a small diaphragmatic hernia. The scope was then advanced into the duodenum which appeared to be normal as well. At that point the duodenum ?and the stomach were decompressed and the scope was withdrawn from the patient's mouth. The patient extubated and was transferred in stable condition to the Recovery Room for further care. I was present and performed all steps of the procedure. There were no residents to assist with this case. Delbert Sanders M.D., Ph.D. Surgeon: Patrick Sanders MD Anesthesia: MAC Was an Harness Rigger used for this Procedure?: No Estimated blood loss (mL): 0 IV fluids (mL): 400 Urine output (mL): 0 (No [place] to record output) Pathology: other (1) antrum x1, 2) fundus x1, 3) GE junction x2, 4) distal esophagus x2) Condition: stable Disposition: PACU
[2024-11-22 15:00] VITALS: BP 106/61; PULSE 80; RESP 16; TEMP 36.6; O2SAT 96
[2024-11-22 15:15] VITALS: BP 115/76; PULSE 72; RESP 16; O2SAT 98
[2024-11-22 15:28] VITALS: BP 120/74; PULSE 78; RESP 16; TEMP 36.3; O2SAT 97
== END 2024-11-22 15:30 | disposition home or self-care (01) ==
PROVIDERS: Anesthesiology; PCP Nurse Practitioner; Visit Provider Surgery
PROC: 0DJ08ZZ Inspection of Upper Intestinal Tract, Via Natural or Artificial Opening Endoscopic (ICD-10-PCS; CPT 43235; principal; 2024-11-22 15:00)
DX: K21.9 Gastro-esophageal reflux disease without esophagitis (principal); E66.01 Morbid (severe) obesity due to excess calories; Z68.41 Body mass index [BMI] 40.0-44.9, adult; K44.9 Diaphragmatic hernia without obstruction or gangrene; E03.9 Hypothyroidism, unspecified; L02.92 Furuncle, unspecified; F32.A Depression, unspecified; F41.9 Anxiety disorder, unspecified; Z79.899 Other long term (current) drug therapy; Z88.5 Allergy status to narcotic agent; Z79.1 Long term (current) use of non-steroidal anti-inflammatories (NSAID); Z90.49 Acquired absence of other specified parts of digestive tract; F17.210 Nicotine dependence, cigarettes, uncomplicated
CPT/HCPCS: 43239; 81025; 88305; 88313; 88342; J2704

== ENCOUNTER → 2024-11-22 12:44 | Outpatient (BNV) | payer OTHER, SELFPAY | PROVIDERS: PCP Nurse Practitioner; Visit Provider Surgery | DX: K44.0 Diaphragmatic hernia with obstruction, without gangrene (principal) | CPT/HCPCS: 43239 ==

== ENCOUNTER → 2024-12-12 13:03 | Outpatient (BNVA) | payer OTHER, SELFPAY | PROVIDERS: PCP Nurse Practitioner; Visit Provider Counselor Mental Health ==

== ENCOUNTER → 2024-12-12 13:03 | Outpatient (AMB) | payer OTHER, SELFPAY ==
--- NOTE | 2024-12-12 12:30 | A.OFFWM_ITS ---
Intake Intake Visit Reasons: TV BH F/U Allergies acetaminophen [Percocet] Allergy (Unknown, Verified 10/16/24 11:59) hives oxycodone [Percocet] Allergy (Unknown, Verified 10/16/24 11:59) hives [facility] Medical History (Updated 10/28/24 @ 17:59 by Patrick Sanders MD) Anxiety Depression GERD (gastroesophageal reflux disease) Boils Surgical History (Updated 11/22/24 @ 12:52 by Kerri Rodriguez RN) History of tubal ligation Hx of cholecystectomy Hx of section Hx of plastic surgery Hx of carpal tunnel repair Family History Maternal Grandfather Skin cancer Social History Are you a primary assistant child care teacher to a significant other at home: No Do you presently have visiting nurse or other home services: No Alcohol intake: current Alcohol intake frequency: holidays/special occasions only Patient Tobacco Use Status: Never used Tobacco Cigarettes Per Day: 6 Behavioral Health Assessment Weight Management Therapy Therapy Notes Details The patient (PT) is a 39-year-old female who presents for a behavioral health (BH) assessment as part of the surgical weight loss (SWL) program. She began the program on 10/16/2024 with a starting weight of 216 lbs. Her stated goals include improving overall health and physical functioning, pursuing weight-loss surgery, and maintaining a healthy weight over the intermediate teacher. PT reports a history of panic attacks, anxiety, and depression. She is currently prescribed psychotropic medication by her primary care provider (PCP). She denies any history of inpatient psychiatric treatment, mental health crises, or the need for higher levels of care. There are no current or past concerns related to suicidal ideation (SI), suicide planning (SP), suicide attempts (SA), self-harm, or harm to others. She does endorse a history of emotional and disorganized eating, which she recognizes as areas requiring continued focus to support post-surgical success. Scores from the Binge Eating Scale (BES) indicate ape-hc-zlrvqoif risk for binge eating. Her PHQ-9 score today falls within the mild depression range. Mental status examination findings are within normal limits, indicating that the patient?s current functioning is stable and not significantly impaired. There are no behavioral health concerns that would contraindicate her participation in the SWL program. PT is therefore cleared to proceed. She will continue to meet with this provider for ongoing support both pre- and post- operatively. Presenting Concerns Referral Source WMP-Provider. Reason for referral Completion of behavioral health assessment as part of process for weight-loss surgery. Precipitating Event Obesity Living Situation Current Living Situation Own At risk of losing current housing? No Satisfied with current living situation? Yes Comments PT lives with her hisband and 2 children. Food/Weight/Diet Expectations of change The initial goal was to lose 10% of her weight before surgery, which is about 22 lbs. Ultimate weight goal: 194 lbs before surgery PT started the program on 10/16/2024 at 216 lbs. Weight as of 12/09/2024: 220 lbs. PT is implementing the following: Current meal plan: Combination of shakes, bars, and 1 meal per day. Exercise plan: Outdoor walk. - None recently, as his knee hurts. Scale: No. History/Relationship with food PT reports she cooks rarely. 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 PT reports she tends to grab food when happy or sad, but doesn't eat when stressed/nervous. At times find herself using food as a reward In her childhood she was rewarded w/ food or after a family incident they will go out for food. Example of meals before starting the program: Breakfast: bread w/ butter, pancakes w/ sausage and solorzano/ Lunch: rice/protein, the bowls available or a sandwich. Dinner: salads during summer, normally a bowl of cereal or would have multiple snacks in the evening. Snacks: cookies, chips. History/Relationship with weight PT reports she has been overweight her whole life. In HS she was at 230Lbs. She has had a history of going up and down. Her mother had bariatric surgery PT reports she gained a lot of weight after second . In the last 10 years, the patient's Lowest weight was 180Lbs and highest 245Lbs History/Relationship with dieting MWL - 2 years ago, lost 35Lbs. Different diets, WW, Paleo diet, Ketto, fasting, overexcercising. Binge Eating Do you frequently eat large amounts of food in short periods of time, not feeling physically hungry? No Do you feel out of control when you eat a large amount of food in a short period of time? No Do you eat large amounts of food rapidly and typically alone? No Night Eating Do you wake up at least once during the night to eat? No If you wake up in the night, do you find that it is necessary to eat something in order to fall back asleep? No Do you have little or no appetite in the morning and feel very hungry in the evening, often overeating between dinner and when you go to bed? No Social History Family history and relationship PT is , they have been together since 2003 and have 2 children. Parents are alive, she has an older brother. PT reports good relationships. has a big family, and they're also very close. Parental/Familial cow washer obligations PT has 2 girls, they are 7 and 3. Developmental history and status None reported. Social support Family. However, she hasn't shared too much about her interest in surgery. Co-workers. Community support None. Temple/Spirituality None Cultural/Ethnic information . Legal Involvement and History Current or historical involvement with the legal system? None reported Education Highest grade completed HS Preferred learning style Learn by doing and Visual Currently enrolled in educational program? No Interested in further educational program? 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 ) Wants help to find employment? No Meaningful activities Used to paint. Financial Situation Describe current financial situation Often struggles with finance Financial assistance? None Service Service? No Mental Health and Addiction Treatment Current/Past substance abuse? No Comments Alcohol: 1-2 x week, 4-5 drinks. Cigarettes/Tobacco: 7-8 cigarettes at day. Cannabis/Edibles: none. Current/Past addictive behavior concerns? No Psychiatric history The patient denies any history of counseling, inpatient treatment, or mental health crises. There are no current or past concerns related to suicidal ideation (SI), suicide attempts (SA), self-harm, or harm to others. However, her PCP has diagnosed her with depression and anxiety and is prescribing her Sertraline 100mg 1 a day. She has been on this medication since 2009. PT has a Hx of panic attacks and was getting prescribed Xanax for a while by her previous PCP. She denies any panic symptoms in the last 6 months. PT states that 1-2 weeks before her period starts, she starts feeling depressed, and the last 4-5 days, she has been noticing these patterns in the last 9 months. And before that, she had PPD Sx with both pregnancies. Medical and Physical Health Summary Additional Medical History not covered in history None Additional Sexual History concerns None reported Physical exam in the last year? Yes Pain Screening Current pain? Yes Pain in the last few months? Yes Comments Knee pain. Medications Is the patient compliant with medications? Yes Does the patient have Araya Guardian in place? Not applicable Does the patient use complimentary health approaches? No Questionnaires PHQ-9 Over the last 2 weeks, how often have you been bothered by any of the following problems? 1. Little interest or pleasure in doing things: several days 2. Feeling down, depressed, or hopeless: not at all 3. Trouble falling or staying asleep, or sleeping too much: not at all 4. Feeling tired or having little energy: several days 5. Poor appetite or overeating: several days (snacking more. ) 6. Feeling bad about yourself - or that you are a failure or have let yourself or your family down: more than half the days 7. Trouble concentrating on things, such as reading the newspaper or watching television: not at all 8. Moving or speaking so slowly that other people could have noticed. Or the opposite - being so fidgety or restless that you have been moving around a lot more than usual: not at all 9. Thoughts that you would be better off or of hurting yourself in some way: not at all Total score: 5 Depression Screening Interpretation: Positive Depression Screening Done: Yes 77430 - PHQ-9 Billing: Yes Source: Developed by Drs. Nikos Byers, Dina Figueroa, Malvin Bradshaw and colleagues, with an educational carmelita from [employer]. Binge Eating Scale Group 1 A. I don't feel self-conscious about my wt. or body size when I'm with others. B. I feel concerned about how I look to others, but it normally does not make me fell disappointed with myself C. I do get self-conscious about my appearance and wt. which makes me feel disappointed in myself. D. I feel very self-conscious about my wt. and frequently I feel intense shame and disgust for myself. I try to avoid social contacts because of my self- consciousness. Response Group 1: C Group 2 A. I don't have any difficulty eating slowly in the proper manner. B. Although I seem to gobble down foods, I don't end up feeling stuffed because of eating to much. C. At times, I tend to eat quickly and then, I feel uncomfortably full afterwards. D. I have the habit of bolting down my food, without really chewing it. When this happens I usually feel uncomfortably stuffed because I've eaten to much. Response Group 2: A Group 3 A. I feel capable to control my eating urges when I want to. B. I feel like I have failed to control my eating more than the average person. C. I feel utterly helpless when it comes to feeling in control of my eating urges. D. Because I feel so helpless about controlling my eating I have become very d esperate about trying to get control. Response Group 3: B Group 4 A. I don't have the habit of eating when I'm bored. B. I sometimes eat when I'm bored, but often I'm able to get busy and get my mind off food. C. I have a regular habit of eating when I'm bored, but occasionally, I can use some other activity to get my mind off eating. D. I have a strong habit of eating when I'm bored. Nothing seems to help me breath the habit. Response Group 4: C Group 5 A. I'm usually physically hungry when I eat something. B. Occasionally, I eat something on impulse even though I really am not hungry. C. I have the regular habit of eating foods, that I might not really enjoy, to satisfy a hungry feeling even though physically, I don't need the food. D. Although I'm not physically hungry, I get a hungry feeling in my mouth that only seems to be satisfied when I eat a food, like sandwich, that fills my skip th. Sometimes, when I eat the food to satisfy my mouth hunger, I then spit the food out so I won't gain weight. Response Group 5: B Group 6 A. I don't feel any guilt or self-hate after I overeat. B. After I overeat, occasionally I feel guilt or self-hate. C. Almost all the time I experience strong guilt or self-hate after I overeat. Response Group 6: B Group 7 A. I don't lose total control of my eating when dieting even after periods when I overeat. B. Sometimes when I eat a forbidden food on a diet, I feel like I blew it and eat even more. C. Frequently, I have the habit of saying to myself, I've blown it now, why not go all the way, when I overeat on a diet. When that happens I eat more. D. I have a regular habit of starting a strict diets for myself but I break the diets by going on an eating binge. My life seems to be either a feast or famine. Response Group 7: D Group 8 A. I rarely eat so much food that I feel uncomfortably stuffed afterwards. B. Usually about once a month, I each such a quantity of food, I end up feeling very stuffed. C. I have regular periods during the month when I eat large amounts of food, either at mealtime or at snacks. D. I eat so much food that I regularly feel quite uncomfortable after eating and sometimes a bit nauseous. Response Group 8: B Group 9 A. My level of calorie intake does not go up very high or go down very low on a regular basis. B. Sometimes after I overeat, I will try to reduce my caloric intake to almost nothing to compensate for the excess calories I've eaten. C. I have a regular habit of overeating during the night. It seems that my routine is not to be hungry in the morning but overeat in the evening. D. In my adult years, I have had week-long periods where I practically starve myself. This follows periods when I overeat. It seems I live a life of either feast or famine. Response Group 9: B Group 10 A. I usually am able to stop eating when I want to. I know when enough is enough. B. Every so often, I experience a compulsion to eat which I can't seem to control. C. Frequently, I experience strong urges to eat which I seem unable to control, but at other times I can control my eating urges. D. I feel incapable of controlling urges to eat. I have a fear of not being able to stop eating voluntarily. Response Group 10: A Group 11 A. I don't have any problem stopping eating when I feel full. B. I usually can stop eating when I feel full but occasionally overeat leaving me feeling uncomfortably stuffed. C. I have a problem stopping eating once I start and usually I feel uncomfortably stuffed after I eat a meal. D. Because I have a problem not being able to stop eating when I want, I sometimes have to induce vomiting to relieve my stuffed feeling. Response Group 11: B Group 12 A. I seem to eat just as much when I'm with others, Family social gatherings as when I'm by myself. B. Sometimes, when I'm with other persons, I don't eat as much as I want to eat because I'm self-conscious about my eating. C. Frequently, I eat only a small amount of food when others are present, because I'm very embarrassed about my eating. D. I feel so ashamed about overeating that I pick times to overeat when I know no one will see me. I feel like a closet eater. Response Group 12: B Group 13 A. I eat three meals a day with only an occasional between meal snack. B. I eat 3 meals a day, but I also normally snack between meals. C. When I am snacking heavily, I get in the habit of skipping regular meals. D. There are regular periods when I seem to be continually eating, with no planned meals. Response Group 13: D Group 14 A. I don't think much about trying to control unwanted eating urges. B. At least some of the time, I feel my thoughts are pre-occupied with trying to control my eating urges. C. I feel that frequently I spend much time thinking about how much I ate or about trying not to eat anymore. D. It seems to me that most of my waking hours are pre-occupied by thoughts about eating or not eating. I feel like I'm constantly struggling not to eat. Response Group 14: C Group 15 A. I don't think about food a great deal. B. I have strong craving for food but they last only for brief periods of time. C. I have days when I can't seem to think about anything else but food. D. Most of my days seem to be pre-occupied with thoughts about food. I feel like I live to eat. Response Group 15: B Group 16 A. I usually know whether or not I'm physically hungry. I take the right portion of food to satisfy me. B. Occasionally, I feel uncertain about knowing whether or not I'm physically hungry. A these times it's hard to know how much food I should take to satisfy me. C. Even though I might know how many calories I should eat, I don't have any idea what is a normal amount of food for me. Response Group 16: C Binge Eating Score: 22 Score less than 17 Minimal Risk Score between 18-26 Moderate Risk Score between 27-46 High Risk Assessment & Plan Assessment & Plan (1) Anxiety: Code(s): F41.9 - Anxiety disorder, unspecified (2) Major depressive disorder, recurrent, unspecified: Code(s): F33.9 - Major depressive disorder, recurrent, unspecified Plan The patient has been cleared from a behavioral health standpoint to proceed with the surgical weight loss program. However, she will continue working with this provider for ongoing behavioral health support throughout both the pre-operative and post-operative phases. Treatment goals will focus on strengthening communication skills, building a supportive social network, developing healthy habits, and fostering self- discipline to enhance her readiness for surgery and to support the ongoing management of her anxiety and depression. Follow-up is scheduled in three weeks. Next félix: 01/02/25 at 12:30pm, telehealth. Telehealth Telehealth Telehealth Platform: [employer] Location of provider rendering services: other (Home Office. [place], [place]) Location of patient: other (Work. [place], [place]) Patient Identification confirmed using: Name, : Yes Telehealth method: voice only Patient verbally consented to treatment: Yes Patient verbally consented to billing insurance company: Yes Patient informed of any privacy concerns related to visit: Yes Minutes spent on Phone/Video with Pt.: 30 Coding Level of Care Code Established Pt Tele Psytx 30 mins (80532) Patient Type Established Diagnoses Anxiety F41.9 Major depressive disorder, recurrent, unspecified F33.9 Additional Codes PHQ-9 - 85412 - PHQ-9 Billing: Yes ([id number]) Time Spent (min) 30
--- OUTSIDE RECORDS SUMMARY | 2024-12-12 15:30 | XMS_ITS | Patient Health Record ---
Author Organization [facility] Address [address] [place] [address] Care Team Providers Care Temperature Control Inspector Name Role Phone Chelsie Garcia Primary Care Provider Unavail able Hitesh Dee Unavailable [phone] Allergies Allergen (clinical drug ingredient) Drug/Non Drug [...] Status W/U Status Risk Notes Problem Bursitis (16850944) Bursitis (727.3) Active confirmed Problem Metatarsalgia (37974159) Metatarsalgia (726.70) Active confirmed Problem Tailors bunion (0375614) Tailors Bunion (727.1) Active confirmed Plan Of Treatment No Information Insurance Providers Payer Name Payer Address Payer Phone Subscriber Number Group Number Insured Name Patient Relationship to Insured Coverage Start Date Coverage End Date [facility] [address] [place] [address] [phone] [id number] Mariia Stanley Self - patient is the insured Medical (General) History Medical History History ICD Code Anxiety Back pain Broken bones Depression Gall bladder problems Thyroid disorder Chicken pox Reflux Surgical History Surgery Date(Month/Year) Justine muhammad 04/2011 Carpal Tunnel 11/2012 Gall Bladder 03/2014
== END ==
LOC: HO.HBST 13:03
PROVIDERS: PCP Nurse Practitioner; Visit Provider Counselor Mental Health
DX: F33.1 Major depressive disorder, recurrent, moderate (principal); F41.9 Anxiety disorder, unspecified
CPT/HCPCS: 90832

== ENCOUNTER 2024-12-30 08:08 | Outpatient (AMB) | payer OTHER, SELFPAY ==
--- OUTSIDE RECORDS SUMMARY | 2024-12-30 08:11 | XMS_ITS | Continuity of Care Document ---
Author Organization [facility] Address [address] [place] [address]- Care Team Providers Care Project Architect Name Role Phone Matthew ROBERTSON, Kerri Wright Primary Care Physicia n Encounter [facility] Date(s): 11/28/24 - 12/28/24 [facility] [address] [place] [address]- Encounter Type: Triage Allergies, Adverse Reactions, Alerts Substance Criticality Severity Reaction Reaction Severity Status Percocet 7.5/325 Act niharika Immunizations Given and Recorded Vaccine Date Status Refusal Reason tetanus/diphtheria/pertussis, acel(Tdap) 12/06/19 Recorded tetanus/diphtheria/pertussis, acel(Tdap) 1 12/07/16 Recorded 1Result Comment: [08/18/2017] [facility] Medic[facility] acetaminophen 325 mg oral tablet 650 mg, By Mouth, Every 4 hours, not to exceed 4000 mg/day, # 50 tablet, Refills 1, Tot. Refills 1,Maintenance, 03/02/20 7:36:00 AM EDT, Route to Pharmacy Electronically, [facility]/pharmacy #[id number], 150, cm,03/02/20 0:15:00 EDT, Height, 111.4, kg, 02/28/20 14:31:00 EDT, Dry Weight Start Date: 03/02/20 Status: Ordered Quantity: 50.0 Unit: tablet Repeat number: 2 ibuprofen 800 mg oral tablet 1, tablet, By Mouth, 3 times a day, PRN, WITH FOOD OR MILK, # 90 tablet, Refills 1, Tot. Refills 1,Maintenance, NEEDED FOR MODERATE PAIN, 11/28/24 11:21:00 AM EDT, Route to Pharmacy Electronically, [facility], 150, cm, 05/20/24 14:47:00 EDT, Height Start Date: 11/28/24 Status: Ordered Quantity: 90.0 Unit: tablet Repeat number: 2 levothyroxine 0.137 mg oral tablet 1 tablet, By Mouth, Daily, # 30 tablet, 6 Refills, Maintenance, 11/19/24 3:39:00 PM EDT, [facility], 150, cm, 05/20/24 14:47:00 EDT, Height Start Date: 11/19/24 Status: Ordered Quantity: 30.0 Unit: tablet Repeat number: 1 omeprazole 20 mg oral enteric coated capsule 1 capsule, By Mouth, Daily, # 90 capsule, 1 Refills, Maintenance, 11/25/24 6:47:00 PM EDT, [facility] [id number], 150, cm, 05/20/24 14:47:00 EDT, Height Start Date: 11/25/24 Status: Ordered Quantity: 90.0 Unit: capsule Repeat number: 1 sertraline 100 mg oral tablet 1 tablet, By Mouth, Daily, # 90 tablet, 1 Refills, Maintenance, 11/28/24 11:22:00 AM EDT, [facility], Please ask pt to call office to schedule an appt for further refills;, 150, cm, 05/20/24 14:47:00 EDT, Height Start Date: 11/28/24 Status: Ordered Quantity: 90.0 Unit: tablet Repeat number: 2 Problem List Condition Confirmation Course Effective Dates [...] Team Personnel Name: Dariel Anne Marie Position: [facility] PROPERTY SPECIALIST MD Member Role: [employer] PROPERTY SPECIALIST Physician Name: Kerri Castro NP Position: [facility] PCO Associate Professional Member Role: PCP Address: [address] [place] [phone]- Telecom: Care Team Related Persons Name: KHOI LOPEZ Name: AMI GAINES Name: JOSE GAINES Insurance Providers Guarantor name: [facility] [employer] [facility] Information #: 1 Payer: [employer] PPO Member Number: NA Policy Number: NA Group Number: NA
--- OUTSIDE RECORDS SUMMARY | 2024-12-30 08:12 | XMS_ITS | Continuity of Care Document ---
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 Operator Name Role Phone Matthew ROBERTSON, Kerri Wright Primary Care Physicia n Encounter [facility] Date(s): 11/28/24 - 12/28/24 [facility] [address] [place] [address]- Encounter Type: Triage Allergies, Adverse Reactions, Alerts Substance Criticality Severity Reaction Reaction Severity Status Percocet 7.5/325 Act niharika Immunizations Given and Recorded Vaccine Date Status Refusal Reason tetanus/diphtheria/pertussis, acel(Tdap) 12/06/19 Recorded tetanus/diphtheria/pertussis, acel(Tdap) 1 12/07/16 Recorded 1Result Comment: [08/18/2017] [facility] acetaminophen 325 mg oral tablet 650 mg, By Mouth, Every 4 hours, not to exceed 4000 mg/day, # 50 tablet, Refills 1, Tot. Refills 1,Maintenance, 03/02/20 7:36:00 AM EDT, Route to Pharmacy Electronically, [facility]/pharmacy #[id number], 150, cm,03/02/20 0:15:00 EDT, Height, 111.4, kg, 02/28/20 14:31:00 EDT, Dry Weight Start Date: 03/02/20 Status: Ordered Quantity: 50.0 Unit: tablet Repeat number: 2 ibuprofen 800 mg oral tablet 1, tablet, By Mouth, 3 times a day, PRN, WITH FOOD OR MILK, # 90 tablet, Refills 1, Tot. Refills 1,Maintenance, NEEDED FOR MODERATE PAIN, 11/28/24 11:21:00 AM EDT, Route to Pharmacy Electronically, [facility], 150, cm, 05/20/24 14:47:00 EDT, Height Start Date: 11/28/24 Status: Ordered Quantity: 90.0 Unit: tablet Repeat number: 2 levothyroxine 0.137 mg oral tablet 1 tablet, By Mouth, Daily, # 30 tablet, 6 Refills, Maintenance, 11/19/24 3:39:00 PM EDT, [facility] Pharm[facility], 150, cm, 05/20/24 14:47:00 EDT, Height Start Date: 11/19/24 Status: Ordered Quantity: 30.0 Unit: tablet Repeat number: 1 omeprazole 20 mg oral enteric coated capsule 1 capsule, By Mouth, Daily, # 90 capsule, 1 Refills, Maintenance, 11/25/24 6:47:00 PM EDT, [facility] [id number], 150, cm, 05/20/24 14:47:00 EDT, Height Start Date: 11/25/24 Status: Ordered Quantity: 90.0 Unit: capsule Repeat number: 1 sertraline 100 mg oral tablet 1 tablet, By Mouth, Daily, # 90 tablet, 1 Refills, Maintenance, 11/28/24 11:22:00 AM EDT, [facility] Pharmacy, Please ask pt to call office [...] Care team information Care Team Personnel Name: DarielAnne Marie eugene Position: [facility] PLANNING FEEDER MD Member Role: Lifetime PLANNING FEEDER Physician Name: Matthew ROBERTSON, Kerri Wright Position: [facility] PCO Associate Professional Member Role: PCP Address: [address] [place] [phone]- Telecom: Care Team Related Persons Name: KHOI LOPEZ Name: AMI GAINES Name: JOSE GAINES Insurance Providers Guarantor name: [facility] [email or web address] Plan Information #: 1 Payer: BLUE BENEFIT BBA PPO Member Number: NA Policy Number: NA Group Number: NA
--- OUTSIDE RECORDS SUMMARY | 2024-12-30 08:12 | XMS_ITS | Continuity of Care Document ---
Author Organization [facility] Address [address] [place] [address]- Care Team Providers Care Pharmacogeneticist Name Role Phone Matthew ROBERTSON, Kerri Wright Primary Care Physicia n Encounter [facility] Date(s): 11/28/24 - 12/28/24 [facility] [address] [place] [phone]- Encounter Type: Triage Allergies, Adverse Reactions, Alerts Substance Criticality Severity Reaction Reaction Severity Status Percocet 7.5/325 Act niharika Immunizations Given and Recorded Vaccine Date Status Refusal Reason tetanus/diphtheria/pertussis, acel(Tdap) 12/06/19 Recorded tetanus/diphtheria/pertussis, acel(Tdap) 1 12/07/16 Recorded 1Result Comment: [08/18/2017] [facility] acetaminophen 325 mg oral tablet 650 mg, By Mouth, Every 4 hours, not to exceed 4000 mg/day, # 50 tablet, Refills 1, Tot. Refills 1,Maintenance, 03/02/20 7:36:00 AM EDT, Route to Pharmacy Electronically, [facility]/pharmacy #[id number], 150, cm,03/02/20 0:15:00 EDT, Height, 111.4, kg, 02/28/20 14:31:00 EDT, Dry Weight Start Date: 03/02/20 Status: Ordered Quantity: 50.0 Unit: tablet Repeat number: 2 ibuprofen 800 mg oral tablet 1, tablet, By Mouth, 3 times a day, PRN, WITH FOOD OR MILK, # 90 tablet, Refills 1, Tot. Refills 1,Maintenance, NEEDED FOR MODERATE PAIN, 11/28/24 11:21:00 AM EDT, Route to Pharmacy Electronically, [facility] Pharm[facility], 150, cm, 05/20/24 14:47:00 EDT, Height Start Date: 11/28/24 Status: Ordered Quantity: 90.0 Unit: tablet Repeat number: 2 levothyroxine 0.137 mg oral tablet 1 tablet, By Mouth, Daily, # 30 tablet, 6 Refills, Maintenance, 11/19/24 3:39:00 PM EDT, [facility] Pharmacy, 150, cm, 05/20/24 14:47:00 EDT, Height Start Date: 11/19/24 Status: Ordered Quantity: 30.0 Unit: tablet Repeat number: 1 omeprazole 20 mg oral enteric coated capsule 1 capsule, By Mouth, Daily, # 90 capsule, 1 Refills, Maintenance, 11/25/24 6:47:00 PM EDT, [facility] [id number], 150, cm, 05/20/24 14:47:00 EDT, Height Start Date: 11/25/24 Status: Ordered Quantity: 90.0 Unit: capsule Repeat number: 1 sertraline 100 mg oral tablet 1 tablet, By Mouth, Daily, # 90 tablet, 1 Refills, Maintenance, 11/28/24 11:22:00 AM EDT, [facility] Pharmacy, Please ask pt to call office [...] Team Personnel Name: DarielAnne Marie eugene Position: [facility] MAGNAFLUX OPERATOR MD Member Role: Lifetime MAGNAFLUX OPERATOR Physician Name: Matthew ROBERTSON, Kerri Wright Position: [facility] PCO Associate Professional Member Role: PCP Address: [address] [place] [address]- Telecom: Care Team Related Persons Name: KHOI LOPEZ Name: AMI GAINES Name: JOSE GAINES Insurance Providers Guarantor name: [facility] [employer] Plan Information #: 1 Payer: BLUE BENEFIT BBA PPO Member Number: NA Policy Number: NA Group Number: NA
--- OUTSIDE RECORDS SUMMARY | 2024-12-30 08:12 | XMS_ITS | Continuity of Care Document ---
Author Organization [facility] Address [address] [place] [address]- Care Team Providers Care Obstetrics Gyn Name Role Phone Matthew ROBERTSON, Kerri Wright Primary Care Physicia n Encounter [facility] Date(s): 11/25/24 - 12/25/24 [facility] [address] [place] [address]- Encounter Type: Triage Allergies, Adverse Reactions, Alerts Substance Criticality Severity Reaction Reaction Severity Status Percocet 7.5/325 Act niharika Immunizations Given and Recorded Vaccine Date Status Refusal Reason tetanus/diphtheria/pertussis, acel(Tdap) 12/06/19 Recorded tetanus/diphtheria/pertussis, acel(Tdap) 1 12/07/16 Recorded 1Result Comment: [08/18/2017] [facility] acetaminophen 325 mg oral tablet 650 mg, By Mouth, Every 4 hours, not to exceed 4000 mg/day, # 50 tablet, Refills 1, Tot. Refills 1,Maintenance, 03/02/20 7:36:00 AM EDT, Route to Pharmacy Electronically, [facility]/pharmacy #1111, 150, cm,03/02/20 0:15:00 EDT, Height, 111.4, kg, 02/28/20 14:31:00 EDT, Dry Weight Start Date: 03/02/20 Status: Ordered Quantity: 50.0 Unit: tablet Repeat number: 2 ibuprofen 800 mg oral tablet 1, tablet, By Mouth, 3 times a day, PRN, WITH FOOD OR MILK, # 90 tablet, Refills 1, Tot. Refills 1,Maintenance, NEEDED FOR MODERATE PAIN, 11/28/24 11:21:00 AM EDT, Route to Pharmacy Electronically, [facility] Pharm[facility], 150, cm, 05/20/24 14:47:00 EDT, Height Start Date: 11/28/24 Status: Ordered Quantity: 90.0 Unit: tablet Repeat number: 2 levothyroxine 0.137 mg oral tablet 1 tablet, By Mouth, Daily, # 30 tablet, 6 Refills, Maintenance, 11/19/24 3:39:00 PM EDT, [facility] Pharmacy, 150, cm, 05/20/24 14:47:00 EDT, Height Start Date: 11/19/24 Status: Ordered Quantity: 30.0 Unit: tablet Repeat number: 1 omeprazole 20 mg oral enteric coated capsule 1 capsule, By Mouth, Daily, # 90 capsule, 1 Refills, Maintenance, 11/25/24 6:47:00 PM EDT, [facility] [id number], 150, cm, 05/20/24 14:47:00 EDT, Height Start Date: 11/25/24 Status: Ordered Quantity: 90.0 Unit: capsule Repeat number: 1 sertraline 100 mg oral tablet 1 tablet, By Mouth, Daily, # 90 tablet, 1 Refills, Maintenance, 11/28/24 11:22:00 AM EDT, [facility] Pharmacy, Please ask pt to call office [...] Team Personnel Name: Dariel Anne Marie Position: [facility] PREPARATION OPERATOR MD Member Role: Lifetime PREPARATION OPERATOR Physician Name: Kerri Castro NP Position: [facility] PCO Associate Professional Member Role: PCP Address: [address] [place] [phone]- Telecom: Care Team Related Persons Name: KHOI LOPEZ Name: AMI GAINES Name: JOSE GAINES Insurance Providers Guarantor name: [facility] [employer] [facility] Information #: 1 Payer: BLUE BENEFIT BBA PPO Member Number: NA Policy Number: NA Group Number: NA
--- OUTSIDE RECORDS SUMMARY | 2024-12-30 08:12 | XMS_ITS | Continuity of Care Document ---
Author Organization [facility] Address [address] [place] [address]- Care Team Providers Care Resident Intern Name Role Phone Matthew ROBERTSON, Kerri Wright Primary Care Physicia n Encounter [facility] Date(s): 11/29/24 - 12/29/24 [facility] [address] [place] [phone]- Encounter Type: Triage Allergies, Adverse Reactions, Alerts Substance Criticality Severity Reaction Reaction Severity Status Percocet 7.5/325 Act niharika Immunizations Given and Recorded Vaccine Date Status Refusal Reason tetanus/diphtheria/pertussis, acel(Tdap) 12/06/19 Recorded tetanus/diphtheria/pertussis, acel(Tdap) 1 12/07/16 Recorded 1Result Comment: [08/18/2017] [facility] acetaminophen 325 mg oral tablet 650 mg, By Mouth, Every 4 hours, not to exceed 4000 mg/day, # 50 tablet, Refills 1, Tot. Refills 1,Maintenance, 03/02/20 7:36:00 AM EDT, Route to Pharmacy Electronically, [facility]/pharmacy #1111, 150, cm,03/02/20 0:15:00 EDT, Height, [...] 11:21:00 AM EDT, Route to Pharmacy Electronically, [facility] Pharm[facility], 150, cm, 05/20/24 14:47:00 EDT, Height Start Date: 11/28/24 Status: Ordered Quantity: 90.0 Unit: tablet Repeat number: 2 levothyroxine 0.137 mg oral tablet 1 tablet, By Mouth, Daily, # 30 tablet, 6 Refills, Maintenance, 11/19/24 3:39:00 PM EDT, [facility] Pharmacy, 150, cm, 05/20/24 14:47:00 EDT, Height Start Date: 11/19/24 Status: Ordered Quantity: 30.0 Unit: tablet Repeat number: 1 omeprazole 20 mg oral enteric coated capsule 1 capsule, By Mouth, Daily, # 90 capsule, 1 Refills, Maintenance, 11/25/24 6:47:00 PM EDT, [facility] [id number], 150, cm, 05/20/24 14:47:00 EDT, Height Start Date: 11/25/24 Status: Ordered Quantity: 90.0 Unit: capsule Repeat number: 1 sertraline 100 mg oral tablet 1 tablet, By Mouth, Daily, # 90 tablet, 1 Refills, Maintenance, 11/28/24 11:22:00 AM EDT, [facility] Pharmacy, Please ask pt to [...] Team Personnel Name: Dariel Anne Marie Position: [facility] CAR CARDER MD Member Role: Lifetime CAR CARDER Physician Name: Kerri Castro NP Position: [facility] PCO Associate Professional Member Role: PCP Address: [address] [place] [phone]- Telecom: Care Team Related Persons Name: KHOI LOPEZ Name: AMI GAINES Name: JOSE GAINES Insurance Providers Guarantor name: [facility] Fair value [facility] Information #: 1 Payer: BLUE BENEFIT BBA PPO Member Number: NA Policy Number: NA Group Number: NA
--- OUTSIDE RECORDS SUMMARY | 2024-12-30 08:12 | XMS_ITS | Patient Health Record ---
Author Organization [facility] Address [address] [place] [address] Care Team Providers Care Investigative Agent Name Role Phone Chelsie Garcia Primary Care Provider Unavail able Hitesh Dee Unavailable [phone] Allergies Allergen (clinical drug ingredient) Drug/Non Drug [...] Status W/U Status Risk Notes Problem Bursitis (26343264) Bursitis (727.3) Active confirmed Problem Metatarsalgia (34809858) Metatarsalgia (726.70) Active confirmed Problem Tailors Bunion (727.1) Active confirmed Plan Of Treatment No Information Insurance Providers Payer Name Payer Address Payer Phone Subscriber Number Group Number Insured Name Patient Relationship to Insured Coverage Start Date Coverage End Date [facility] [address] [place] [address] [phone] [id number] Mariia Stanley Self - patient is the insured Medical (General) History Medical History History ICD Code Anxiety Back pain Broken bones Depression Gall bladder problems Thyroid disorder Chicken pox Reflux Surgical History Surgery Date(Month/Year) Justine muhammad 04/2011 Carpal Tunnel 11/2012 Gall Bladder 03/2014
--- NOTE | 2024-12-30 09:44 | A.OFFVIS_ITS ---
VS Expanded 12/30/24 09:55 Height 5 ft Weight 221 lb 8 oz BMI 43.3 Body Fat % 57.6 Body Fat Mass 127.7 Fat Free Mass 94.4 Visceral Fat Rating 24 Body Water % 29.2 Body Water Mass 64.7 Basal Metabolic Rate/Score 1,293 Intake Visit Reasons: TV Pre Op LSG 01/16/25 Allergies acetaminophen [Percocet] Allergy (Unknown, Verified 12/30/24 09:45) hives oxycodone [Percocet] Allergy (Unknown, Verified 12/30/24 09:45) hives Medication List - Last Reconciled 12/30/24 by Patrick Sanders MD cholecalciferol (vitamin D3) 125 mcg PO DAILY ibuprofen 800 mg PO Q8H PRN MDD 2400 iron,carbonyl-vitamin C 65 mg iron- 125 mg (Vitron-C) 1 tab PO DAILY levothyroxine 137 mcg PO DAILY mecobalamin (vitamin B12) 1,000 mcg sublingual DAILY omeprazole 20 mg PO DAILY ondansetron 4 mg PO Q12H pantoprazole 40 mg PO DAILY polyethylene glycol 3350 17 grams PO DAILY sertraline (Zoloft) mg sucralfate 10 mL PO BID HPI HPI TV Pre Op LSG 01/16/25: Details: Start time: 9.38am, End time: 10.08am ?I spent 25 minutes speaking with the patient on the phone plus an additional 5 minutes reviewing and updating records for a total of 30 minutes HPI Comments Details: is doing 2 Celebrate Rebuild protein shakes, 2 protein bars, and on meal Exercise: is doing Elliptical 3 days per week for 400 calories PFSH Medical History (Updated 10/28/24 @ 17:59 by Patrick Sanders MD) Anxiety Depression GERD (gastroesophageal reflux disease) Boils Surgical History (Updated 11/22/24 @ 12:52 by Kerri Rodriguez RN) History of tubal ligation Hx of cholecystectomy Hx of section Hx of plastic surgery Hx of carpal tunnel repair Family History Maternal Grandfather Skin cancer Social History Are you a primary career services representative to a significant other at home: No Do you presently have visiting nurse or other home services: No Alcohol intake: current Alcohol intake frequency: holidays/special occasions only Patient Tobacco Use Status: Never used Tobacco Cigarettes Per Day: 6 Telehealth Telehealth Telehealth Platform: Telephone Location of provider rendering services: practice address Location of patient: address on file Patient Identification confirmed using: Name, : Yes Telehealth method: voice only Patient verbally consented to treatment: Yes Patient verbally consented to billing insurance company: Yes Patient informed of any privacy concerns related to visit: Yes Minutes spent on Phone/Video with Pt.: 30 Assessment & Plan Assessment & Plan (1) Morbid obesity: Code(s): E66.01 - Morbid (severe) obesity due to excess calories Category: Medical Plan: 1. Plan for lap sleeve gastrectomy including upper GI endoscopy. All tests has been completed and reviewed and the patient is cleared for the surgery. ?If diaphragmatic or ventral hernias are present at time of surgery, these will be repaired laparoscopically as well. Risks and complications were discussed in detail including possible conversion to an open procedure, anastomotic leak, bleeding requiring transfusion, small bowel obstruction, , DVT and pulmonary embolism, cardiac, or pulmonary complications, as care home complications such as anastomotic ulcer, insufficient weight loss and vitamin deficiencies. I emphasized the importance of close follow-up, adherence to instructions and good communication. So far she has proven to be an excellent communicator and very compliant with all our directions accomplishing a great weight loss. I believe that she is an excellent candidate and she is ready. 2. Preop prescriptions were provided and explained the purpose of each one. Need to be purchased preop. Start Pantoprazole now as you get it from the pharmacy, 1 pill per day. Sucralfate and Zofran are for after surgery as needed. 3. Bowel prep: please do 7 packets ?of Miralax mixing each one with a an 8oz glass of water, crystal light, gatorade zero, or propel ?on 01/14/25 and the same amount on 01/15/25. The Miralax you begin with one packet at a time in 8oz water or crystal light, gatorade zero, or propel ?as early in the day as you can and you do them back to back until you finish them. Continue the protein shakes during ?the bowel prep. 4. Needs to purchase 1oz medicine cups . 5. Needs to purchase Children's liquid Tylenol for postop pain control. 6. She needs to stop the Ibuprofen as of tomorrow. Avoid aspirin, motrin, Advil, Aleve, Meloxicam, Excedrin, Ibuprofen, Naproxyn. Tylenol is OK. 7. She needs to purchase the Celebrate 4:1 protein shakes or the Celebrate multivitamins from the hospital's gift shop, chewable or pills whatever you prefer. 8. Will do basic preop blood work-up any day between Monday01/06/25 and Monday01/10/25 fasting for 12 hours and is scheduled to see the Anesthesiologist prior to the day of surgery. 9. Importance of adherence to postop folllow-up and recommendations was underscored and she understands that. 10. Stop food and bars as of Monday12/31/24 and continue with 2 Celebrate Rebuild protein shakes (ONE scoop EACH in 8oz almond milk) at 5am-7am and 8am- 10am, and three more Celebrate Rebuild protein shake with TWO scoops EACH in 8oz of almond milk at 11am-1pm, 2pm-4pm, and 5pm-7pm 11. No soups, broths or V8 12. The patient's?medical?history has been reviewed and they are considered low risk for post op DVT and therefore DVT prophylaxis is not considered necessary. Travel after surgery was reviewed. The patient has not disclosed any travel plans during the first 30 days after surgery and they have been advised that within the first 30 days after surgery any bus, plane, train or car travel over 2 hours in duration is contraindicated due to the possibility of developing blood clots from immobility. Any travel, needs to include periods of ambulation of 10 minutes in duration every 2 hours.? Patient was instructed to discuss any plans for travel during this period with their bariatric surgeon.? 13. Please take at the day of surgery the following medications: Lisinopril if the blood pressure that day is high enough to justify it based on the parameters at the previous bullet point. 14. Stop any control pills and don't use them for one month after surgery 15. Absolutely no smoking or vaping, or marijuana until the surgery and for at least the first 4 weeks. Only nicotine patches are allowed. 16. Send me weight measurements on Monday01/06/25, Monday01/13/25 and then on 01/16/25, the day of surgery before you go to the hospital. 17. Avoid any steroids by mouth for any reason. Let me know if someone prescribes them to you 18. These instructions supersede anything else you read in the handbook, anything you watched in videos or classes or you were told by any other provider. If there is any conflict, you follow the above instructions and nothing else. Orders: Orders TSH reflex Free T4 Today E66.01 - Morbid (severe) obesity due to excess calories Prothrombin Time INR Today E66.01 - Morbid (severe) obesity due to excess calories Type and Screen Today E66.01 - Morbid (severe) obesity due to excess calories Partial Thromboplastin Time Today E66.01 - Morbid (severe) obesity due to excess calories C Reactive Protein Today E66.01 - Morbid (severe) obesity due to excess calories Complete Blood Count Auto Diff Today E66.01 - Morbid (severe) obesity due to excess calories Insulin Today E66.01 - Morbid (severe) obesity due to excess calories Comprehensive Met. Panel Today E66.01 - Morbid (severe) obesity due to excess calories Lipid Panel Today E66.01 - Morbid (severe) obesity due to excess calories Hemoglobin A1c Today E66.01 - Morbid (severe) obesity due to excess calories Medications: New pantoprazole 40 mg PO DAILY 90 tabs 0RF K21.9 - Gastro-esophageal reflux disease without esophagitis sucralfate 10 mL PO BID 600 mL 2RF K21.9 - Gastro-esophageal reflux disease without esophagitis polyethylene glycol 3350 Mix each measuring cup with 8oz of water, Crystal light, or Gatorade zero, or Propel and do 7 measuring cups on 01/14/25 and another 7 measuring cups on 01/15/25 17 grams PO DAILY 238 grams 0RF Z01.818 - Encounter for other preprocedural examination ondansetron Only take one every 12 hours as needed if you have nausea 4 mg PO Q12H 20 tabs 0RF nausea and vomiting R11.0 - Nausea
[2024-12-30 09:55] VITALS: BMI 43.3
== END 2024-12-30 10:09 | disposition home or self-care (01) ==
LOC: HO.HBS 08:08
PROVIDERS: PCP Nurse Practitioner; Visit Provider Surgery
DX: E66.01 Morbid (severe) obesity due to excess calories (principal)
CPT/HCPCS: 99214

== ENCOUNTER 2025-01-02 13:03 | Outpatient (AMB) | payer OTHER, SELFPAY ==
--- NOTE | 2025-01-02 12:30 | MHC.WMTHER ---
Intake Intake Visit Reasons: TV BH F/U Allergies oxycodone [Percocet] Allergy (Severe, Verified 01/08/25 12:29) hives PFSH Medical History Anxiety Depression GERD (gastroesophageal reflux disease) Boils Surgical History History of esophagogastroduodenoscopy (EGD) (11/22/24) History of tubal ligation Hx of cholecystectomy Hx of section Hx of plastic surgery Hx of carpal tunnel repair Family History Maternal Grandfather Skin cancer Social History Household Members: Family Housing: House Are you a primary school child care attendant to a significant other at home: Yes (children) Do you presently have visiting nurse or other home services: No Alcohol intake: current Alcohol intake frequency: holidays/special occasions only Patient Tobacco Use Status: Never used Tobacco Cigarettes Per Day: 6 e-Cigarette/Vaping Use: Never Used Behavioral Health Assessment Weight Management Therapy Therapy Notes Details Subjective: PT has been scheduled for bariatric surgery for 01/16/2025. Reports she has been doing better than she thought with the liquid plan as preparation pre-op. At times having cravings when cooking for her kids. PT also shares she is anticipating to take only 1 week off from work. Objective: PT presents for a f/up visit over the phone. Discussed functioning and challenges during this time as she started liquid plan pre-op. Explores mindfulness techniques to support her min and decrease cravings when cooking for the kids. Used strength-based approach for her mindset and readiness for upcoming surgery. Reviewed her supports and coping plan post-op for possible anxiety Sx. Assessment/Response: Mental status: WNL Risk reported/identified: None Assessment & Plan Assessment & Plan (1) Anxiety: Code(s): F41.9 - Anxiety disorder, unspecified (2) Major depressive disorder, recurrent, unspecified: Code(s): F33.9 - Major depressive disorder, recurrent, unspecified Plan PT has been advised to consider taking 2 weeks off from work due to the Post-op instructions and need to focus on recovery and pace of drinking. She will be seen again after her surgery. Next félix: TBD Telehealth Telehealth Telehealth Platform: BemDire[employer] Location of provider rendering services: practice address Location of patient: other Patient Identification confirmed using: Name, : Yes Telehealth method: voice only Patient verbally consented to treatment: Yes Patient verbally consented to billing insurance company: Yes Patient informed of any privacy concerns related to visit: Yes Minutes spent on Phone/Video with Pt.: 30 Coding Level of Care Code Established Pt Tele Psytx 30 mins (88661) Patient Type Established Diagnoses Anxiety F41.9 Major depressive disorder, recurrent, unspecified F33.9 Time Spent (min) 30
--- OUTSIDE RECORDS SUMMARY | 2025-01-02 13:06 | XMS_ITS | Patient Health Record ---
[facility] Organization [facility] Address [address] [place] [address] Care Team Providers Care Hospice Aide Name Role Phone Chelsie Garcia Primary Care Provider Unavail able Hitesh Dee Unavailable [phone] Allergies Allergen (clinical drug ingredient) Drug/Non Drug [...] Status W/U Status Risk Notes Problem Bursitis (22687258) Bursitis (727.3) Active confirmed Problem Metatarsalgia (48194685) Metatarsalgia (726.70) Active confirmed Problem Tailors bunion (2211437) Tailors Bunion (727.1) Active confirmed Plan Of Treatment No Information Insurance Providers Payer Name Payer Address Payer Phone Subscriber Number Group Number Insured Name Patient Relationship to Insured Coverage Start Date Coverage End Date [facility] [address] [place] [address] [id number] Mariia Stanley Self - patient is the insured Medical (General) History Medical History History ICD Code Anxiety Back pain Broken bones Depression Gall bladder problems Thyroid disorder Chicken pox Reflux Surgical History Surgery Date(Month/Year) Justine muhammad 04/2011 Carpal Tunnel 11/2012 Gall Bladder 03/2014
== END 2025-01-02 13:10 | disposition home or self-care (01) ==
LOC: HO.HBST 13:03
PROVIDERS: PCP Nurse Practitioner; Visit Provider Counselor Mental Health
DX: F41.9 Anxiety disorder, unspecified (principal); F33.9 Major depressive disorder, recurrent, unspecified
CPT/HCPCS: 90832

== ENCOUNTER → 2025-01-02 13:03 | Outpatient (BNVA) | payer OTHER, SELFPAY | PROVIDERS: PCP Nurse Practitioner; Visit Provider Counselor Mental Health ==

== ENCOUNTER 2025-01-03 09:54 | Outpatient (REF) | payer OTHER, SELFPAY ==
--- NOTE | ~2025-01-03 | FL_ITS ---
EXAMINATION: XR FLUOROSCOPY UPPER GI SERIES CLINICAL INFORMATION: Preoperative bariatric surgery. GERD. COMPARISON: None TECHNIQUE: Fluoroscopic air contrast upper GI examination was performed utilizing standard techniques with thin and thick barium and effervescent granules. Numerous spot images were obtained. Several fluoroscopic image hold cine sequences were also obtained. FINDINGS: UPPER GI SERIES: Lateral cine images of the oropharynx and hypopharynx demonstrate normal swallow mechanism with normal epiglottic inversion and soft palate elevation. No laryngeal penetration, glottic or subglottic aspiration identified. No nasopharyngeal reflux present. Hypopharyngeal structures appear normal without evidence of mass or diverticulum. There was no significant cricopharyngeal achalasia. Dual and single contrast images of the esophagus demonstrate normal caliber, contour, and mucosal pattern. No evidence of stricture, mass, or ulcerations identified. Esophageal peristalsis was normal. No evidence of hiatus hernia identified. No significant gastroesophageal reflux was seen during the course of the examination and on reflux views. Dual contrast and single contrast images of the stomach demonstrated normal contour and mucosal pattern without evidence of mass, ulceration, or other abnormality. Contrast freely passed into the gastric antrum and duodenal bulb without delay. Single and air-contrast images of the duodenal bulb demonstrate no abnormality. The duodenal sweep has a normal appearance, course, and mucosal fold appearance. There are cholecystectomy clips present. FLUOROSCOPY TIME: 2 minutes, 16 seconds Number of Spot Images:8 Number of cines obtained: 8 DOSE AREA PRODUCT: 2842 uGy-m2 (microgray-meter squared) FL/FL upper GI w air IMPRESSION: Normal upper GI examination. Electronically signed by: Mando Mooney MD 01/03/2025 10:37 AM EDT
== END 2025-01-03 09:55 | disposition home or self-care (01) ==
LOC: HO.XRAY 09:54
PROVIDERS: PCP Nurse Practitioner; Visit Provider Surgery
DX: E66.01 Morbid (severe) obesity due to excess calories (principal); K21.9 Gastro-esophageal reflux disease without esophagitis; E03.9 Hypothyroidism, unspecified
CPT/HCPCS: 74246

== ENCOUNTER → 2025-01-03 09:56 | Outpatient (BNV) | payer OTHER, SELFPAY | PROVIDERS: PCP Nurse Practitioner; Visit Provider Radiology Diagnostic Radiology | DX: K21.9 Gastro-esophageal reflux disease without esophagitis (principal) | CPT/HCPCS: 74246 ==

== ENCOUNTER → 2025-01-09 07:27 | Outpatient (BNVA) | payer OTHER, SELFPAY | PROVIDERS: PCP Nurse Practitioner; Visit Provider Surgery ==

== ENCOUNTER 2025-01-16 10:38 | Inpatient (IN) | payer OTHER, SELFPAY ==
[2025-01-08 12:25] VITALS: BMI 41.2
[2025-01-09 06:18] LABS: MANUAL DIFF FLAG NO
[2025-01-09 07:17] LABS: Basophils Percent Auto 0.6 % (0-2); Eosinophils Absolute Auto 0.2 X10*3/uL (0.0-0.4); Eosinophils Percent Auto 4.1 % (0-4); Hematocrit 35.8 % (37.0-47.0); Hemoglobin 11.7 g/dl (12.0-16.0); Imm Gran Abs Auto 0.01 X10*3/uL (0.00-0.03); Imm Gran Pct Auto 0.2 % (0.0-0.4); Lymphocytes Absolute Auto 1.1 X10*3/uL (1.2-4.9); Lymphocytes Percent Auto 23.8 % (20-40); Mean Corpuscular HGB Conc 32.7 g/dl (31.0-35.0); Mean Corpuscular Hemoglobin 25.1 pg (27.0-33.0); Mean Corpuscular Volume 76.7 fL (80.0-98.0); Monocytes Absolute Auto 0.5 X10*3/uL (0.1-1.2); Monocytes Percent Auto 10.4 % (2-11); Neutrophils Absolute Auto 2.8 x10*3/uL (2.0-8.3); Neutrophils Percent Auto 60.9 % (45-73); Platelet Count 406 X10*3/uL (160-400); Red Blood Count 4.67 X10*6/uL (4.20-5.50); Red Cell Distribution Width 14.6 % (11.0-16.0); White Blood Count 4.6 X10*3/uL (4.8-10.8)
[2025-01-09 07:26] LABS: Estimated Average Glucose 108 mg/dL; Hemoglobin A1C 110.0934 umol/L; Hemoglobin A1c % 5.4 % (<6.0); Total Hemoglobin (HGBA1C) 3093.3757 umol/L
[2025-01-09 07:29] LABS: Prothrombin Time 11.9 SEC (10.9-12.4)
[2025-01-09 07:31] LABS: Partial Thromboplastin Time 30.9 SEC (26.0-36.8)
[2025-01-09 07:42] LABS: Alanine Aminotransferase 19 U/L (0-31); Albumin Level 4.3 g/dL (3.5-5.0); Anion Gap 14 (12-20); Aspartate Amino Transferase 23 U/L (5-31); Bilirubin Total 0.4 mg/dL (0.0-1.0); Blood Urea Nitrogen 14 mg/dL (9-16); C Reactive Protein 0.45 mg/dL (< or = 0.50); Calcium 9.1 mg/dL (8.4-10.2); Carbon Dioxide 24 mmol/L (22-29); Chloride 104 mmol/L (96-108); Cholesterol 202 mg/dL (<200); Creatinine Clr Calc Pharmacy 121.6; Estimated Glomerular Filt Rate > 60; Glucose Random 78 mg/dL (60-115); HDL Cholesterol 44 mg/dL (>40); LDL Cholesterol Calculated 139 mg/dL (<100); Potassium 3.8 mmol/L (3.3-5.1); Sodium 138 mmol/L (135-145); Total Protein 6.8 g/dL (6.5-8.0); Triglycerides 98 mg/dL (<150)
[2025-01-09 07:57] LABS: Alkaline Phosphatase 64 U/L (39-117)
[2025-01-09 08:10] LABS: Insulin 8 uU/mL (2-29); TSH reflex Free T4 1.22 uIU/mL (0.32-4.0)
--- NOTE | 2025-01-14 13:50 | P.CONAN_ITS ---
Documented by User: Amanda Graf NP 01/14/25 13:51 HPI - Anesthesia Eval Consult details Narrative: 39yo F for Gastrectomy Sleeve,EGD,possible Diaphragmatic Hernia,possible Ventral Hernia,possible Open PMFSH Active Problems Active Problems: All Active Problems Vitamin B12 deficiency (Acute) Vitamin D deficiency (Acute) Iron deficiency (Acute) Greater trochanteric bursitis of left hip (Acute) Obesity (BMI 30-39.9) (Acute) Hypothyroid (Acute) Morbid obesity (Acute) Body mass index 45.0-49.9, adult (Acute) History of arthroscopy of right knee (Acute) Valgus deformity, not elsewhere classified, right knee (Acute) Osteoarthritis of right knee (Acute) Anxiety (Acute) Depression (Acute) GERD (gastroesophageal reflux disease) (Acute) Past Medical History Medical History Anxiety Depression GERD (gastroesophageal reflux disease) Boils Family History Family History Maternal Grandfather Skin cancer Family history of problems with anesthesia: No Surgical History Surgical History History of esophagogastroduodenoscopy (EGD) (11/22/24) History of tubal ligation Hx of cholecystectomy Hx of section Hx of plastic surgery Hx of carpal tunnel repair History of Problems with Anesthesia: No Social History Social History Household Members: Family Housing: House Are you a primary care transitions manager to a significant other at home: Yes (children) Do you presently have visiting nurse or other home services: No Alcohol intake: current Alcohol intake frequency: holidays/special occasions only Patient Tobacco Use Status: Never used Tobacco Cigarettes Per Day: 6 e-Cigarette/Vaping Use: Never Used Use of substances other than those prescribed or required for medical reasons: No Have you been hit, kicked, punched, or otherwise hurt by someone within the past year? If so, by whom?: No Are you DNR?: No Advance Directives: No Advance Directives Information Provided: Yes Advance Directives on File: No Patient : No FDLMP: 01/02/2025 : No Poor oral hygiene: No (2 lower molar crowns) Meds Allergies Allergy/AdvReac Type Severity Reaction Status Date / Time oxycodone [Percocet] Allergy Severe hives Verified 01/08/25 12:29 Home Medications ?Medication ?Instructions ?Recorded ?Confirmed ?Last Taken ?Type ibuprofen 800 mg tablet 800 mg PO Q8H PRN Pain, Moderate 09/20/20 01/16/2508/07 History omeprazole 20 mg capsule,delayed 20 mg PO BEDTIME 09/20/20 01/16/25 01/15/25 History release sertraline 100 mg tablet (Zoloft) 100 mg PO BEDTIME 09/20/20 01/16/25 01/15/25 History levothyroxine 137 mcg tablet 137 mcg PO DAILY 10/14/24 01/16/25 01/15/25 History Exam Height,Weight and Vital Signs: Height 5 ft Weight 95.708 kg Pertinent Lab Results Pertinent Lab Results: Laboratory Tests 01/09/25 06:10 WBC 4.6 L RBC 4.67 Hgb 11.7 L Hct 35.8 L MCV 76.7 L MCH 25.1 L MCHC 32.7 RDW 14.6 Plt Count 406 H MPV 12.0 Immature Gran % (Auto) 0.2 Neut % (Auto) 60.9 Lymph % (Auto) 23.8 [place] % (Auto) 10.4 Eos % (Auto) 4.1 H Baso % (Auto) 0.6 Lymph # (Auto) 1.1 L [place] # (Auto) 0.5 Eos # (Auto) 0.2 Baso # (Auto) 0.0 Abs Immat Gran (auto) 0.01 Absolute Neuts (auto) 2.8 Absolute Nucleated RBC 0.000 Nucleated RBC % (auto) 0.0 PT 11.9 INR 1.0 APTT 30.9 Sodium 138 Potassium 3.8 Chloride 104 Carbon Dioxide 24 Anion Gap 14 BUN 14 Creatinine 0.63 Estim Creat Clear Calc 121.6 Estimated GFR > 60 Random Glucose 78 Estimat Average Glucose 108 Hemoglobin A1c % 5.4 Insulin Level 8 Calcium 9.1 Total Bilirubin 0.4 AST 23 ALT 19 Alkaline Phosphatase 64 C-Reactive Protein 0.45 Total Protein 6.8 Albumin 4.3 Triglycerides 98 Cholesterol 202 H LDL Cholesterol, Calc 139 H HDL Cholesterol 44 TSH 1.22 Blood Type O Positive Antibody Screen NEGATIVE Narrative Narrative: EKG 10/2024 Vent. Rate : 84 BPM Atrial Rate : 84 BPM P-R Int : 144 ms QRS Dur : 88 ms QT Int : 386 ms P-R-T Axes : -13 19 31 degrees QTcB Int : 456 ms Normal sinus rhythm Normal ECG No previous ECGs available Assessment and Plan Assessment Anesthesia Assessment: Chart Reviewed Final Anesthetic Review Family History of Problems with Anesthesia: No History of Problems with Anesthesia: No Documented by User: Joseline Navarro MD 01/16/25 13:16 [facility] Past Medical History Medical History Anxiety Depression GERD (gastroesophageal reflux disease) Boils Family History Family History Maternal Grandfather Skin cancer Surgical History Surgical History History of esophagogastroduodenoscopy (EGD) (11/22/24) History of tubal ligation Hx of cholecystectomy Hx of section Hx of plastic surgery Hx of carpal tunnel repair Social History Social History Household Members: Family Housing: House Are you a primary care transitions manager to a significant other at home: Yes (children) Do you presently have visiting nurse or other home services: No Alcohol intake: current Alcohol intake frequency: holidays/special occasions only Patient Tobacco Use Status: Never used Tobacco Cigarettes Per Day: 6 e-Cigarette/Vaping Use: Never Used Use of substances other than those prescribed or required for medical reasons: No Have you been hit, kicked, punched, or otherwise hurt by someone within the past year? If so, by whom?: No Are you DNR?: No Advance Directives: No Advance Directives Information Provided: Yes Advance Directives on File: No Patient : No FDLMP: 01/02/2025 : No Poor oral hygiene: No (2 lower molar crowns) Meds Allergies Allergy/AdvReac Type Severity Reaction Status Date / Time oxycodone [Percocet] Allergy Severe hives Verified 01/08/25 12:29 Home Medications ?Medication ?Instructions ?Recorded ?Confirmed ?Last Taken ?Type ibuprofen 800 mg tablet 800 mg PO Q8H PRN Pain, Moderate 09/20/20 01/16/25 12/23/24 History omeprazole 20 mg capsule,delayed 20 mg PO BEDTIME 09/20/20 01/16/25 01/15/25 History release sertraline 100 mg tablet (Zoloft) 100 mg PO BEDTIME 09/20/20 01/16/25 01/15/25 History levothyroxine 137 mcg tablet 137 mcg PO DAILY 10/14/24 01/16/25 01/15/25 History Exam Airway Mallampati Class: II TM Dist: >3cm Neck ROM: Full Loose/Missing/Broken Teeth: No Heart: RRR Lungs: CTA Assessment and Plan Assessment Anesthesia Assessment: Anesthesia Plan Discussed Final Anesthetic Review NPO: Yes ASA Class: III Final Preanesthetic Review: Meds/Allgs Chart Reviewed, Consent Obtained/Reviewed and Anes Risks/Benef Reviewed Patient Risk: Intermediate Procedure Risk: Intermediate Anesthetic Plan Anesthetic Plan: GA Disposition: Standard PACU
[2025-01-16] VITALS (17 sets, daily range): BP systolic 114–164; BP diastolic 60–92; PULSE 67–93; RESP 12–20; TEMP 36.2–36.8; O2SAT 93–100; BMI 39.4
[2025-01-16] MEDS: Aprepitant 32 MG/4.4 ML VIAL IVPUSH (11:32)
[2025-01-16] MEDS: Lactated Ringers 1,000 ML 999 ML IV (11:32)
--- NOTE | 2025-01-16 12:27 | MHC.SHP ---
Pre-Procedural Eval Section A - 24 Hr Update-Section A only Date of Service: 01/16/25 The patient is an INPATIENT: Yes The patient has been examined within 24 hours of the surgical procedure. The History & Physical has been completed within 30 days and I have reviewed it.: Yes Section B - Complete if H&P > 30 days Chief Complaint: Morbid Obesity Relevant Family History (Specify if Yes): No Relevant Social History: None Present Medications: None Medical History: No relevant PMH History of Previous Operations: No relevant previous surgery Allergies: Allergies Allergy/AdvReac Type Severity Reaction Status Date / Time oxycodone [Percocet] Allergy Severe hives Verified 01/08/25 12:29 Review of Systems Sugical H&P ROS: Negative: Constitution, Cardiovascular, Respiratory, Neurological, Psychiatric, Hem-Onc, Allergic/Immunologic, Gastrointestinal, Genitourinary, Musculoskeletal, Integumentary, Endocrine and Eyes/Ears/Nose/Throat Exam Surgical H&P Exam: Normal: HEENT, Normal: Heart, Normal: Lungs, Normal: Extremities, Normal: Abdomen, Normal: Skin and Normal: Neurological Plan Diagnosis/Plan: Unchanged I have reviewed the history and physical and performed a pertinent physical examination on my patient. No changes have occurred unless specified. Time Spent With Patient Time: Total time managing care of this patient today ____ minutes.
--- NOTE | 2025-01-16 12:28 | PM.OP ---
Brief Operative Note Date of Service: 01/16/25 Pre-op diagnosis: Morbid obesity with comorbidities (see below) Post-op diagnosis: same Procedure: INITIAL PATIENT BMI ON PRESENTATION AT OUR OFFICE: 42.2 kg/m2 LAST BMI BEFORE SURGERY: 40.8 kg/m2 COMORBIDITIES: GERD, hypothyroidism, depression, anxiety, liver fibrosis ?The patient presented to the Weight Management Program with significant obesity that was negatively impacting the patient's comorbidities as listed above.? The program is a phased program with a special focus on preoperative medical weight management to promote substantial weight loss and prepare the patients for the second phase of the program: bariatric surgery. The patient participated in an intensive weekly lifestyle ?intervention and exercise program during which the patient ?has lost between the initial office visit and the last preoperative visit 13.4lbs, or 6.2% of initial actual body weight. It was deemed appropriate for the patient to now have bariatric surgery. In light of the current Covid-19 pandemic and the well documented strong association of obesity and increased risk of worse outcomes if infected with Covid-19 (REFERENCES:https://pubmed.ncbi.nlm.nih.gov/49207523/,?https://pubmed.ncbi.nlm.nih.gov/76166500/), any delay in undergoing bariatric surgery may lead to the patient's worsening health condition and increased?risk of more severe Covid-19 disease if infected. In addition a recent?study from [facility] published in SURJIT Surgery on 08/09/2021 ([email or web address]) found that, among patients with obesity, substantial weight loss achieved with surgery was associated with improved outcomes of COVID-19 infection. The findings suggest that obesity can be a modifiable risk factor for the severity of COVID-19 infection. In addition, the patient met the BMI-criteria for bariatric surgery based on the BMI on initial presentation. The patient should not be penalized for achieving such weight loss because ?it is not sustainable long-term without surgical intervention and it was achieved in preparation for bariatric surgery ?under my direction and based on my published research ([email or web address]).pdf and?https://www.soard.org/article/F8938-6444(86)92973-X/pdf) ?that a 10% preoperative weight loss improves long-term weight loss after surgery and reduces perioperative complications.? Insurance carriers such as [facility] have endorsed my recommendations ?and have included in their policies criteria to include a 10% preoperative weight loss requirement. PROCEDURE: Esophago-gastroscopy, laparoscopic sleeve gastrectomy and laparoscopic gastropexy INDICATIONS: This is a 39 year-old female who was electively scheduled for laparoscopic, possibly open sleeve gastrectomy. The risks and complications of the procedure were discussed with the patient in advance, particularly the possibility of ; pulmonary embolism; staple line leak; bleeding; GERD; cardiac, pulmonary, or renal complications; as well as long-term problems such as insufficient weight loss, vitamin deficiency, strictures, or ulcers. The patient understood all the risks, and was in agreement to proceed with surgery. DESCRIPTION OF PROCEDURE: After informed consent was obtained from the patient, the patient was given preoperative antibiotics, and was transferred to the operating room. After successful induction of general anesthesia, pneumatic compression devices were placed on both lower extremities. An upper endoscopy was performed next. The oropharynx and esophagus appeared to be within normal limits. There was no diaphragmatic hernia present. The stomach was entered. Then after all fluid and air were suctioned and the stomach was fully decompressed, the scope was withdrawn and secured in the mid esophagus. The patient was then prepped and draped in the usual sterile manner, and abdominal access was established at the right upper quadrant with the [place] technique. A 12 mm blunt port was inserted, and the abdomen was insufflated with CO2 to a pressure of 15 mmHg. Under direct visualization, additional ports were placed, specifically two 5 mm Versi-step ports to the left upper quadrant, and a 5 mm Versi-Step port to the right upper quadrant. 1% lidocaine plain was used to infiltrate all port sites as well as all fascia defects. Following that, the patient was placed in a steep reverse Trendelenburg position. An additional 5 mm port was placed to the right flank for the Mediflex retractor that was used to retract the left lobe of the liver. The gastro-esophageal fat pad was opened with the ultrasonic device (Thunderbeat, Olympus) and the anterior esophagus and hiatus were exposed. The angle of His was opened with the ultrasonic device the fundus of the stomach from any diaphragmatic and splenic attachments. I then opened the gastrocolic ligament between the transverse colon and the greater curvature of the stomach with the ultrasonic device to enter the lesser sac and facilitate the ligation of the short gastric vessels. I started at a mid-point along the greater curvature and using the Thunderbeat, all short gastric vessels were divided all the way to the angle of His until the left jhony was completely dissected at its entirety. I then divided the gastro-colic ligament distally to a distance of about 3-4 cm proximal to the pylorus. The stomach was then divided transversely with one Endo MAHENDRA-45 purple and three MAHENDRA-60 articulating purple loads using the Crowdability stapler and loads. Every effort was made that the gastric sleeve had a tubular shape and an even caliber throughout. Once the sleeve resection was completed, the staple line of the gastric sleeve was reinforced with Hemoclips. The resected stomach was retrieved without difficulty from the [place] port. A gastropexy was then performed in order to prevent postoperative GERD and partial gastric volvulus. Several interrupted 2.0 Surgidac sutures were placed between the sleeve's staple line and the previously divided greater omentum and gastro-colic ligament using the Endo-Stitch device. ?An upper endoscopy was performed. There was no narrowing at the GE junction. The scope was easily advanced all the way to the pylorus which was clearly visualized. There was no narrowing anywhere and the sleeve's caliber was even throughout. The sleeve's staple line was inspected and there was no evidence of ischemia, bleeding or dehiscence. At that point the gastroscope was withdrawn from the patient?s mouth while we were decompressing the bowel and the stomach from any remaining air. I looked into the lesser sac to see how the sleeve was situating and it was situating well. There was no bleeding from the staple line, spleen, or short gastric vessels. The Mediflex retractor was removed, and the undersurface of the liver was inspected and there was no bleeding. The patient was placed in supine position. I closed the fascial defect of the 12 mm port site with a figure of eight #1 Polysorb suture. Then 30cc Ropivacaine plain with 10 mg of Dexamethasone were used to infiltrate the fascial closure as well as all skin incisions. At this point, the abdomen was deflated, all ports were removed under direct vision, and no bleeding was noted from any of the port sites. The skin incisions were irrigated with saline and were closed with 4-0 absorbable monofilament sutures. Steri-Strips and OpSites were used to cover all incisions. The patient was extubated and was transferred in stable condition to the recovery room for further care. I was present and performed all fam parts of the procedure. Ms. Raya was the statistical assistant. There were no residents to assist with this case. Delbert Sanders MD, PhD, FACS Surgeon: Patrick Sanders MD Anesthesia: GETA, local and other (TAP block) Was an Instructor Decorating used for this Procedure?: No Instructor Decorating: Saige Raya Estimated blood loss (mL): 10 IV fluids (mL): 3,000 Urine output (mL): 0 (No [place]val[place]aba to record output) Pathology: other (1) Stomach, 2) Gastro-esophageal fat pad) Condition: stable Disposition: PACU
--- NOTE | 2025-01-16 12:33 | PM.PNGS ---
Subjective Subjective Date of Service: 01/17/25 Interval history: Feels well. Mild incisional pain. She is tolerating phase 1 bariatric diet Physical Exam Vital Signs: Vital Signs: Last Vital Signs Temp 98.3 F 01/16/25 10:55 Pulse 74 01/16/25 10:55 Resp 16 01/16/25 10:55 BP 114/74 01/16/25 10:55 Pulse Ox 100 01/16/25 10:55 O2 Del Method Room Air 01/16/25 10:55 BMI result Body Mass Index 39.4 GI: Inspection: Yes normal to inspection, Yes incision (clean, dry and intact) and Yes obesity Palpation (GI): Soft to palpation Extrem: Right lower extremity: normal to inspection (no calf tenderness) Left lower extremity: normal to inspection (no calf tenderness) Objective Data Active Medications Lactated Ringer's (Lr) 1,000 mls @ 100 mls/hr IVCONT .Q10H [facility] Stop: 01/16/25 13:44 Lactated Ringer's (Lr) 1,000 mls @ 999 mls/hr IV .Q1H1M [facility] Stop: 01/16/25 12:45 Last Admin: 01/16/25 11:32 Dose: 999 mls/hr Documented By: [facility] Labs 01/17/25 05:26 01/17/25 05:26 Procedures Date of Service Date of Service: 01/17/25 Progress Note: A&P Assessment and plan (1) Morbid obesity: Status: Inactive Assessment and Plan: s/p laparoscopic sleeve gastrectomy and gastropexy Doing well Will check am labs and if OK the patient will be discharged home (2) Hypothyroid: Status: Acute (3) Depression: Status: Acute (4) Anxiety: Status: Acute (5) GERD (gastroesophageal reflux disease): Status: Acute (6) Liver fibrosis: Status: Acute (7) Osteoarthritis of right knee: Status: Acute (8) S/P laparoscopic sleeve gastrectomy: Status: Acute Time Spent With Patient Time: Total time managing care of this patient today ____ minutes. Quality Stroke Does the patient have a stroke diagnosis?: No VTE Prior VTE?: No VTE Risk Level:: Surgical - moderate VTE Device Contraindication: N/A - Device Ordered VTE Drug Contraindication: Treatment Not Indicated
--- OUTSIDE RECORDS SUMMARY | 2025-01-16 12:33 | XMS_ITS | Patient Health Record ---
Author Organization [facility] Address [address] [place] [address] Care Team Providers Care Portfolio Consultant Name Role Phone Chelsie Garcia Primary Care Provider Unavail able Hitesh Dee Unavailable [phone] Allergies Allergen (clinical drug ingredient) Drug/Non Drug [...] Status W/U Status Risk Notes Problem Bursitis (56537174) Bursitis (727.3) Active confirmed Problem Metatarsalgia (26072281) Metatarsalgia (726.70) Active confirmed Problem Tailors Bunion (727.1) Active confirmed Plan Of Treatment No Information Insurance Providers Payer Name Payer Address Payer Phone Subscriber Number Group Number Insured Name Patient Relationship to Insured Coverage Start Date Coverage End Date [facility] [address] [place] [address] [id number] Mariia Stanley Self - patient is the insured Medical (General) History Medical History History ICD Code Anxiety Back pain Broken bones Depression Gall bladder problems Thyroid disorder Chicken pox Reflux Surgical History Surgery Date(Month/Year) Justine muhammad 04/2011 Carpal Tunnel 11/2012 Gall Bladder 03/2014
[2025-01-16] MEDS: ceFAZolin Sodium/Dextrose,Iso 2 GM/50 ML PIGGYBACK IV ×2 (13:05→18:05)
--- NOTE | 2025-01-16 15:06 | PM.DS ---
DS: Providers Provider Date of Service: 01/17/25 Date of admission: 01/16/25 10:38 Date of discharge: 01/17/25 Primary care physician: Kerri Castro NP DS: Diagnosis Discharge Diagnosis (1) Hypothyroid: Status: Acute (2) Depression: Status: Acute (3) Anxiety: Status: Acute (4) GERD (gastroesophageal reflux disease): Status: Acute (5) Liver fibrosis: Status: Acute (6) Osteoarthritis of right knee: Status: Acute DS: Summary Hospital Course Hospital Course: ADMITTING DIAGNOSIS: morbid obesity, liver fibrosis, hypothyroidism, OA, anxiety, depression, GERD DISCHARGE DIAGNOSIS: same, s/p laparoscopic sleeve gastrectomy and gastropexy PAST SURGICAL HISTORY:? History of tubal ligation Hx of cholecystectomy Hx of section Hx of plastic surgery Hx of carpal tunnel repair PROCEDURE: upper endoscopy, laparoscopic sleeve gastrectomy and gastropexy DISCHARGE SUMMARY: History of Present Illness: The patient is a?39 year-old woman with a BMI of?39.5 kg/m2 and associated co-morbidities as described above. The patient had extensive work-up, lost?14.2 lbs preoperatively and was electively scheduled for laparoscopic, possible open sleeve gastrectomy and gastropexy. Risks and complications of the surgery were discussed with the patient in advance, particularly the possibility of , pulmonary embolism, anastomotic leak, bleeding, bowel injury, GERD, cardiac, renal or pulmonary complications. The patient understood all the risks and was in agreement with the surgical plan. Hospital Course: The patient underwent an uneventful laparoscopic sleeve gastrectomy with gastropexy on the day of admission. Postoperatively, the patient was transferred to the surgical floor. The patient received IV acetaminophen and IV Dilaudid for pain control. Patient was started on bariatric phase 1 diet POD #0. On postoperative day one, the patient was feeling well without nausea, vomiting, fevers, or tachycardia. The patient had some mild incisional pain and the abdomen was soft.?On the morning of postoperative day one, the patient was continued on 1 ounce of water or ice every half hour. During the day, the patient did fairly well, able to ambulate adequately and to tolerate liquids well. Since the patient is doing well, we decided that the patient was ready to be discharged. The patient was given instructions to follow-up in office next week and to call the office for any fever over 101, persistent abdominal pain, nausea, vomiting, GERD, symptoms of DVT such as calf tenderness, or leg swelling, or pulmonary embolism such as chest pain or shortness of breath.? The patient was also instructed to drink 40-60 ounces of liquids per day using the 1-ounce cups. The patient had been given prescriptions for Tylenol for pain, Zofran prn for nausea, and pantoprazole and carafate previously. The patient was encouraged to ambulate and use the incentive spirometer. The patient was allowed to shower, but no baths, and encouraged to stay active at home. All of these instructions were given to the patient personally. All questions were answered and the patient understood all instructions, the instructions were also given to the patient in print. Time Attestation Discharge Coordination Time (in mins): 30 Quality: Safe Use of Opioids Does Pt have an Active Cancer Diagnosis on the Problem List?: No Quality: Stroke Does the patient have a stroke diagnosis?: No Physical Exam Vital Signs: Vital Signs: Last Vital Signs Temp 98.2 F 01/16/25 15:00 Pulse 86 01/16/25 15:05 Resp 20 01/16/25 15:05 BP 164/90 H 01/16/25 15:05 Pulse Ox 100 01/16/25 15:05 O2 Del Method Simple Mask 01/16/25 15:05 O2 Flow Rate 10 01/16/25 15:05 BMI result Body Mass Index 39.4 DS: Data Data Completed and Pending Pending studies at discharge: Pending at discharge 01/16/25 14:12 Surgical [PTH] Routine Discharge Plan Discharge Anticipated Discharge Date/Time: 01/17/25 10:00 Patient Disposition: Home, Self-Care Discharge Diagnosis: s/p laparoscopic sleeve gastrectomy with gastropexy Referrals: Kerri Castro NP [Primary Care Provider] - 1 Week Discharge Medications: Continued sertraline [Zoloft] 100 mg Tablet 100 mg PO BEDTIME levothyroxine 137 mcg tablet 137 mcg PO DAILY@0600 Discontinued ibuprofen [Motrin] 800 mg Tablet 800 mg PO Q8H MDD 2400 PRN (Reason: Pain, Moderate) omeprazole 20 mg Capsule,Delayed Release(Dr/Ec) 20 mg PO BEDTIME No Action ondansetron 4 mg tablet,disintegrating 2 mg PO Q6-8H PRN pantoprazole 40 mg tablet,delayed release (DR/EC) 40 mg PO DAILY sucralfate 100 mg/mL suspension PO Rx Instructions: pt post op gastric sleeved pt prescribed med by Bariatric surgeon to take twice aday Discharge Orders: Discharge Order (Routine); Ordered 01/17/25 Ordered By: Patrick Sanders Activity on Discharge: No heavy lifting Stand Alone Forms: Patient Portal Discharge page Print Language: Senegalese Care Plan Goals: weight loss Health Concerns: obesity Plan of Treatment: No tub baths, sex or returning to work until discussed at first post op appointment. No alcohol, tobacco or illegal drug use. Continue to use incentive spirometer hourly while awake. Walk in home for 5- 10 minutes every 2 hours during the first week. Wear abdominal binder with activity. Follow all meal plan instructions from your bariatric surgeon. Review bariatric handbook and call with any questions. Discharge Instructions 1. Please call your doctor or come back to the emergency room should any new symptoms arise. 2. Activity: abstain from alcohol,? limited stair climbing, no bending, no driving, no exercise, no illicit substances, no lifting, no sex, no tub bath, no work. 4. Diet: follow your bariatric surgeon's recommendations for advancing diet. 5. Dressing Change/Wound Care: Your incisions are covered with waterproof dressings. You can shower with these and pat dry. Do not rub over dressings or incisions. If the area is tender, you may apply an ice pack for short intervals (no more than 20 minutes on, followed by at least 20 minutes off). Do not apply heat. Do not use creams, lotions, or topical antibiotics unless instructed to do so by your surgeon. 6. Call your doctor if: - Your temperature exceeds 101.5 F - You experience excessive pain or swelling - You have an unexpected reaction to medication - You have excessive bleeding - You experience continued vomiting/nausea - Your incision begins to separate - Your incision shows signs of infection such as increased redness, swelling, excessive pain, heat, or drainage (light blood or clear fluid is normal) General instructions: No lifting greater than 10 lbs for the next 6 weeks. [address] driving within 24 hours of taking narcotic pain medications. If you do not move your bowels in the next 2 days, please take milk of magnesia over the counter. Please follow the post op diet and do not advance your diet until instructed by your surgeon or until you are seen in the office in about 1 week. Please walk around your home every hour or two to prevent blood clots from forming in your legs. You do not need to wake from sleeping to walk. Please sleep in a bed or couch to prevent kinking at the hips and knees. Please take your incentive spirometer (your lung technical sales advisor) home with you and use it for the next few days to prevent pneumonias. You may shower; no hot tubs, baths or swimming pools. Please make sure you are consuming 40-60 ounces of total fluids per day. Avoid all carbonation. Please call the office with any questions or concerns such as increasing abdominal pain, fever, chills, shortness of breath, chest pain, leg pain or swelling, or redness or drainage from your incisions. Do not hesitate to contact the office with any questions at . The patient's medical history has been reviewed and they are considered low risk for post op DVT and therefore DVT prophylaxis is not considered necessary. Travel after surgery was reviewed. The patient has not disclosed any travel plans during the first 30 days after surgery and they have been advised that within the first 30 days after surgery any bus, plane, train or car travel over 2 hours in duration is contraindicated due to the possibility of developing blood clots from immobility. Any travel, needs to include periods of ambulation of 10 minutes in duration every 2 hours.? The patient was instructed to discuss any plans for travel during this period with their bariatric surgeon. Assessment: s/p laparoscopic sleeve gastrectomy with gastropexy Discharge Date/Time: 01/17/25 12:32
[2025-01-16] MEDS: HYDROmorphone HCl 0.5 MG/0.5 ML SYRINGE 0.25 MG IVPUSH ×4 (15:15→15:40)
[2025-01-16] MEDS: Haloperidol Lactate 5 MG/ML VIAL 1 MG IVPUSH (15:26)
[2025-01-16 16:18] LABS: Hematocrit 35.4 % (37.0-47.0)
[2025-01-16 16:34] LABS: Anion Gap 16 (12-20); Blood Urea Nitrogen 6 mg/dL (9-16); Calcium 8.5 mg/dL (8.4-10.2); Carbon Dioxide 20 mmol/L (22-29); Chloride 107 mmol/L (96-108); Creatinine Clr Calc Pharmacy 118.6; Estimated Glomerular Filt Rate > 60; Glucose Random 80 mg/dL (60-115); Sodium 139 mmol/L (135-145)
[2025-01-16] MEDS: Lactated Ringers 1,000 ML 100 ML IVCONT (16:59)
--- NOTE | 2025-01-16 17:46 | PHA.MEDREC ---
Addendum entered by Kandi Call RPh 01/16/25 17:51: Reviewed by [facility] Original Note: Pharmacy Consult ? Medication Reconciliation Pharmacy reviewed med rec done by nursing. Pt states she is not taking any of her OTC medications and has not in a long time ; I took off Vitamin D3, Iron combo med and Vitamin B12 from the med rec. Pt also stated she is taking Omeprazole once at bedtime and was taking the Pantoprazole but for only pre surgery. Pt got Ondansetron and Sucralfate to start after surgery.
[2025-01-16] MEDS: Acetaminophen 1,000 MG/100 ML PIGGYBACK 16.7 MG IV (19:14)
[2025-01-16] MEDS: 0.9 % Sodium Chloride Flush 3 ML SYRINGE IVFLUSH (19:58)
[2025-01-16] MEDS: Famotidine/PF 20 MG/2 ML VIAL IVPUSH (19:58)
[2025-01-16] MEDS: Sertraline HCL 100 MG TABLET PO (19:58)
[2025-01-17] MEDS: Acetaminophen 1,000 MG/100 ML PIGGYBACK 16.7 MG IV ×2 (01:24→07:24)
[2025-01-17] MEDS: Lactated Ringers 1,000 ML 100 ML IVCONT (03:07)
[2025-01-17 03:09] VITALS: BP 140/90; PULSE 70; RESP 16; TEMP 36; O2SAT 97
[2025-01-17] MEDS: HYDROmorphone HCl 0.5 MG/0.5 ML SYRINGE 0.25 MG IVPUSH (03:16)
[2025-01-17] MEDS: Levothyroxine Sodium 25 MCG TABLET PO (05:29)
[2025-01-17] MEDS: Levothyroxine Sodium 112 MCG TABLET PO (05:30)
[2025-01-17 06:06] LABS: MANUAL DIFF FLAG NO
[2025-01-17 06:23] LABS: Anion Gap 14 (12-20); Blood Urea Nitrogen 4 mg/dL (9-16); Calcium 8.7 mg/dL (8.4-10.2); Carbon Dioxide 20 mmol/L (22-29); Chloride 109 mmol/L (96-108); Estimated Glomerular Filt Rate > 60; Glucose Random 89 mg/dL (60-115); Potassium 5.1 mmol/L (3.3-5.1); Sodium 138 mmol/L (135-145)
[2025-01-17 06:29] LABS: Basophils Percent Auto 0.1 % (0-2); Hematocrit 33.9 % (37.0-47.0); Imm Gran Abs Auto 0.03 X10*3/uL (0.00-0.03); Imm Gran Pct Auto 0.4 % (0.0-0.4); Lymphocytes Absolute Auto 0.8 X10*3/uL (1.2-4.9); Lymphocytes Percent Auto 10.5 % (20-40); Mean Corpuscular HGB Conc 32.4 g/dl (31.0-35.0); Mean Platelet Volume 11.9 fL (9.4-12.3); Monocytes Absolute Auto 0.6 X10*3/uL (0.1-1.2); Neutrophils Absolute Auto 6.4 x10*3/uL (2.0-8.3); Platelet Count 324 X10*3/uL (160-400); Red Cell Distribution Width 14.6 % (11.0-16.0); White Blood Count 7.9 X10*3/uL (4.8-10.8)
[2025-01-17 08:03] VITALS: BP 134/65; PULSE 80; RESP 18; TEMP 36.1; O2SAT 99
--- NOTE | 2025-01-17 08:29 | HO.POSTANES ---
Post Anesthesia Evaluation Post Anesthesia Evaluation Date of Service: 01/17/25 Vital Signs: Vital Signs Temp Pulse Resp BP Pulse Ox O2 Del Method 01/17/25 08:03 96.9 F 80 18 134/65 99 Room Air 01/17/25 03:09 96.8 F 70 16 140/90 H 97 Room Air 01/16/25 23:40 97.1 F 72 16 154/83 H 98 Room Air Anesthesia: General Endotracheal-GETA Mental Status: Awake Pain Control: Satisfactory Nausea/Vomiting: None Hydration: Adequate Anesthesia-Related Issues: No Anes. Related Issues
[2025-01-17 11:39] VITALS: BP 127/62; PULSE 69; RESP 12; TEMP 36.8; O2SAT 100
--- NOTE | 2025-01-17 13:44 | MHC.CM.PN ---
Pt discharged prior to being seen by this CM.
== END 2025-01-17 12:32 | disposition home or self-care (01) | DRG 403 ==
LOC: HO.SSSA 15:05 → HO.S3 16:27
PROVIDERS: Physician Assistant Surgical; Admitting Provider Surgery; PCP Nurse Practitioner; Visit Provider Surgery
PROC: 0DB64Z3 Excision of Stomach, Percutaneous Endoscopic Approach, Vertical (ICD-10-PCS; CPT 43845; principal; 2025-01-16 13:10)
DX: E66.01 Morbid (severe) obesity due to excess calories (principal); K74.00 Hepatic fibrosis, unspecified; E03.9 Hypothyroidism, unspecified; Z68.41 Body mass index [BMI] 40.0-44.9, adult; F32.A Depression, unspecified; F41.9 Anxiety disorder, unspecified; Z79.890 Hormone replacement therapy; Z79.899 Other long term (current) drug therapy
CPT/HCPCS: 36415; 80048; 80053; 80061; 83036; 83525; 84443; 85014; 85018; 85025; 85610; 85730; 86140; 86850; 86900; 86901; 88304; 88305; 88307; 88342; A4649; C9145; J0131; J0690; J1100; J1171; J1308; J1630; J2003; J2250; J2405; J2704; J2795; J3010; J7120

== ENCOUNTER → 2025-01-16 10:38 | Outpatient (BNV) | payer OTHER, SELFPAY | PROVIDERS: Admitting Provider Surgery; PCP Nurse Practitioner; Visit Provider Surgery | DX: E66.01 Morbid (severe) obesity due to excess calories (principal); E03.9 Hypothyroidism, unspecified; F32.A Depression, unspecified; F41.9 Anxiety disorder, unspecified; K21.9 Gastro-esophageal reflux disease without esophagitis; K74.00 Hepatic fibrosis, unspecified; M17.11 Unilateral primary osteoarthritis, right knee; Z98.84 Bariatric surgery status | CPT/HCPCS: 43659; 43775; 99024 ==

== ENCOUNTER 2025-01-22 09:46 | Outpatient (AMB) | payer OTHER, SELFPAY ==
--- NOTE | 2025-01-22 09:50 | MHC.OFFVISWM ---
VS Expanded 01/22/25 10:02 BP 117/68 Blood Pressure Location Rt brachial Blood Pressure Position Sitting Pulse 74 Pulse Source Pulse Oximeter Temp 96.7 F L Temperature Source Temporal Artery Scan Pulse Oximetry 97 Oxygen Delivery Method Room Air Height 5 ft Weight 196 lb BMI 38.3 Body Fat % 43.8 Body Fat Mass 86.2 Fat Free Mass 110.4 Visceral Fat Rating 11.0 Body Water % 40.1 Body Water Mass 79.0 Muscle Mass/Score 105.0 Basal Metabolic Rate/Score 1,156 Intake Visit Reasons: (OV) PO LSG 01/16/25 Allergies oxycodone [Percocet] Allergy (Severe, Verified 01/22/25 09:57) hives HPI Comments Details: Patient is a pleasant 39-year-old female who returns to the office today in follow-up. She is approximately 6 days post sleeve gastrectomy performed on 01/16/2025. COUNTS INCLUDE 234 BEDS AT THE [facility] Medical History (Updated 01/17/25 @ 00:01 by Boy Oakes) Morbid obesity Anxiety Depression GERD (gastroesophageal reflux disease) Boils Surgical History S/P laparoscopic sleeve gastrectomy History of esophagogastroduodenoscopy (EGD) (11/22/24) History of tubal ligation Hx of cholecystectomy Hx of section Hx of plastic surgery Hx of carpal tunnel repair Family History Maternal Grandfather Skin cancer Social History Household Members: Family Housing: House Are you a primary care team assistant to a significant other at home: Yes (children) Do you presently have visiting nurse or other home services: No Alcohol intake: current Alcohol intake frequency: holidays/special occasions only Patient Tobacco Use Status: Never used Tobacco Cigarettes Per Day: 6 e-Cigarette/Vaping Use: Never Used Physical Exam GI Inspection: Yes incision (Clean, dry, intact.) Assessment & Plan Assessment & Plan (1) S/P laparoscopic sleeve gastrectomy: Code(s): Z98.84 - Bariatric surgery status Category: Surgical Plan: POD 6 s/p LSG on 01/16/[address] Sanders Weight loss prior to surgery was 13.4 pounds or 6.2 % TBWL. Original weight on 10/16/2024 was 216.2 pounds and op weight was 202.8 pounds. Be sure to text Dr Sanders exactly 1 week after surgery your weight from your home scale so he can adjust your meal plan. Continue meal plan until f/u w Pepe in 2 weeks May shower, no submersion in bath for another week Continue abdominal binder with activity and exercise for the next 2 weeks. Exercise prior to surgery was gym and walking outside and may resume No abdominal exercises for 6 weeks post operatively Will be emailed link to post op video for review Reminded of the pace of drinking, 2 mL per minute, 1 oz/15 min.
[2025-01-22 10:02] VITALS: BP 117/68; PULSE 74; TEMP 35.9; O2SAT 97; BMI 38.3
--- OUTSIDE RECORDS SUMMARY | 2025-01-22 10:44 | XMS_ITS | Patient Health Record ---
Author Organization [facility] Address [address] [place] [address] Care Team Providers Care Oyster Grower Name Role Phone Chelsie Garcia Primary Care Provider Unavail able Hitesh Dee Unavailable [phone] Allergies Allergen (clinical drug ingredient) Drug/Non Drug [...] Status W/U Status Risk Notes Problem Bursitis (54212730) Bursitis (727.3) Active confirmed Problem Metatarsalgia (24903239) Metatarsalgia (726.70) Active confirmed Problem Tailors Bunion (727.1) Active confirmed Plan Of Treatment No Information Insurance Providers Payer Name Payer Address Payer Phone Subscriber Number Group Number Insured Name Patient Relationship to Insured Coverage Start Date Coverage End Date [facility] [address] [place] [address] [id number] Mariia Stanley Self - patient is the insured Medical (General) History Medical History History ICD Code Anxiety Back pain Broken bones Depression Gall bladder problems Thyroid disorder Chicken pox Reflux Surgical History Surgery Date(Month/Year) Justine muhammad 04/2011 Carpal Tunnel 11/2012 Gall Bladder 03/2014
== END 2025-01-22 10:57 | disposition home or self-care (01) ==
LOC: HO.HBS 09:46
PROVIDERS: PCP Nurse Practitioner; Visit Provider Physician Assistant Surgical
DX: Z98.84 Bariatric surgery status (principal)
CPT/HCPCS: 99024

== ENCOUNTER 2025-01-27 13:07 | Outpatient (AMB) | payer OTHER, SELFPAY ==
--- NOTE | 2025-01-27 12:34 | MHC.WMTHER ---
Intake Intake Visit Reasons: TV PO LSG 01/16/25 Allergies oxycodone (Percocet) Allergy (Severe, Verified 01/22/25 09:57) hives [facility] Medical History (Updated 01/25/25 @ 00:02 by Boy Oakes) Morbid obesity Anxiety Depression GERD (gastroesophageal reflux disease) Boils Surgical History S/P laparoscopic sleeve gastrectomy History of esophagogastroduodenoscopy (EGD) (11/22/24) History of tubal ligation Hx of cholecystectomy Hx of section Hx of plastic surgery Hx of carpal tunnel repair Family History Maternal Grandfather Skin cancer Social History Household Members: Family Housing: House Are you a primary home health care respiratory therapist to a significant other at home: Yes (children) Do you presently have visiting nurse or other home services: No Alcohol intake: current Alcohol intake frequency: holidays/special occasions only Patient Tobacco Use Status: Never used Tobacco Cigarettes Per Day: 6 e-Cigarette/Vaping Use: Never Used Behavioral Health Assessment Weight Management Therapy Therapy Notes Details Subjective: The patient is status post bariatric surgery on 01/16. She reports that the first few days were difficult due to significant post-operative pain but states she is now feeling much better. She describes experiencing increased anxiety, intermittent feelings of hunger, and notes that she has not been exercising consistently, expressing some guilt about not meeting her expectations. Objective: The patient presented for a post-operative behavioral health follow-up . Explored current functioning, including post-operative routines, hydration, and emotional adjustment. Reflected on the importance of building and sustaining healthy habits to support long-term weight loss and overall recovery. Gently challenged self-critical thoughts and encouraged the patient to adopt a more compassionate and realistic mindset around her post-op progress. Reinforced patient responsibility in the weight loss journey while validating early post-op challenges as part of the normal adjustment process. Encouraged consistent communication with her medical team to ensure adherence to guidelines, promote healing, and address hunger and anxiety symptoms appropriately. Provided psychoeducation around the connection between mindset, behavioral patterns, and long-term outcomes. Discussed support systems, coping strategies, and emphasized small, attainable goals to help the patient regain momentum with movement and routine. Assessment/Response: Mental status: WNL Risk reported/identified: None Food/Weight/Diet Expectations of change The initial goal was to lose 10% of her weight before surgery, which is about 22 lbs. Ultimate weight goal: 194 lbs before surgery PT started the program on 10/16/2024 at 216 lbs. Weight as of 12/09/2024: 220 lbs. Day of surgery weight 01/16/2025: 202 Lbs PO weight 01/23/2025: 197 Lbs PT is implementing the following: Current meal plan: Liquid plan. 3 shakes + liquids (water/Propel/Gatorade) for a total of 40-50oz per day, Exercise plan: Outdoor walk. Scale: Yes Communication with provider: . Questionnaires PHQ-9 Over the last 2 weeks, how often have you been bothered by any of the following problems? 1. Little interest or pleasure in doing things: several days 2. Feeling down, depressed, or hopeless: not at all 3. Trouble falling or staying asleep, or sleeping too much: not at all 4. Feeling tired or having little energy: several days 5. Poor appetite or overeating: not at all 6. Feeling bad about yourself - or that you are a failure or have let yourself or your family down: several days 7. Trouble concentrating on things, such as reading the newspaper or watching television: not at all 8. Moving or speaking so slowly that other people could have noticed. Or the opposite - being so fidgety or restless that you have been moving around a lot more than usual: not at all 9. Thoughts that you would be better off or of hurting yourself in some way: not at all Total score: 3 Depression Screening Interpretation: Negative Depression Screening Done: Yes 10639 - PHQ-9 Billing: Yes Source: Developed by Drs. Nikos Byers, Dina Figueroa, Malvin Bradshaw and colleagues, with an educational carmelita from [employer]. Assessment & Plan Assessment & Plan (1) Anxiety: Code(s): F41.9 - Anxiety disorder, unspecified (2) Major depressive disorder, recurrent, unspecified: Code(s): F33.9 - Major depressive disorder, recurrent, unspecified (3) Status post bariatric surgery: Code(s): Z98.84 - Bariatric surgery status Plan The patient declined further behavioral health visits at this time. She was encouraged to join the program?s Facebook support group and to attend the in-person peer support groups, which meet biweekly. The patient is aware of available behavioral health resources should she need additional support in the future. Next Appointment: None scheduled. Telehealth Telehealth Telehealth Platform: Telephone Location of provider rendering services: practice address Location of patient: address on file Patient Identification confirmed using: Name, : Yes Telehealth method: voice only Patient verbally consented to treatment: Yes Patient verbally consented to billing insurance company: Yes Patient informed of any privacy concerns related to visit: Yes Minutes spent on Phone/Video with Pt.: 30 Coding Level of Care Code Established Pt Tele Psytx 30 mins (02964) Patient Type Established Diagnoses Anxiety F41.9 Major depressive disorder, recurrent, unspecified F33.9 Status post bariatric surgery Z98.84 Additional Codes PHQ-9 - 09905 - PHQ-9 Billing: Yes ([id number]) Time Spent (min) 30
--- OUTSIDE RECORDS SUMMARY | 2025-01-27 14:34 | XMS_ITS | Patient Health Record ---
Author Organization [facility] Address [address] [place] [address] Care Team Providers Care Restorative Aide Name Role Phone Chelsie Garcia Primary Care Provider Unavail able Hitesh Dee Unavailable [phone] Allergies Allergen (clinical drug ingredient) Drug/Non Drug [...] Status W/U Status Risk Notes Problem Bursitis (42953517) Bursitis (727.3) Active confirmed Problem Metatarsalgia (57633170) Metatarsalgia (726.70) Active confirmed Problem Tailors bunion (3729113) Tailors Bunion (727.1) Active confirmed Plan Of Treatment No Information Insurance Providers Payer Name Payer Address Payer Phone Subscriber Number Group Number Insured Name Patient Relationship to Insured Coverage Start Date Coverage End Date [facility] [address] [place] [address] [id number] Mariia Stanley Self - patient is the insured Medical (General) History Medical History History ICD Code Anxiety Back pain Broken bones Depression Gall bladder problems Thyroid disorder Chicken pox Reflux Surgical History Surgery Date(Month/Year) Justine muhammad 04/2011 Carpal Tunnel 11/2012 Gall Bladder 03/2014
== END 2025-01-27 13:17 | disposition home or self-care (01) ==
LOC: HO.HBST 13:07
PROVIDERS: PCP Nurse Practitioner; Visit Provider Counselor Mental Health
DX: F33.1 Major depressive disorder, recurrent, moderate (principal); F41.9 Anxiety disorder, unspecified; Z98.84 Bariatric surgery status
CPT/HCPCS: 90832

== ENCOUNTER → 2025-01-27 13:07 | Outpatient (BNVA) | payer OTHER, SELFPAY | PROVIDERS: PCP Nurse Practitioner; Visit Provider Counselor Mental Health ==

== ENCOUNTER 2025-02-10 13:52 | Outpatient (AMB) | payer OTHER, SELFPAY ==
--- NOTE | 2025-02-10 13:58 | A.OFFVIS_ITS ---
VS Expanded 02/10/25 14:06 BP 109/69 Blood Pressure Location Rt brachial Blood Pressure Position Sitting Pulse 73 Pulse Source Pulse Oximeter Temp 96.2 F L Temperature Source Temporal Artery Scan Pulse Oximetry 98 Oxygen Delivery Method Room Air Height 5 ft Weight 187 lb 3.2 oz BMI 36.6 Body Fat % 41.5 Body Fat Mass 77.6 Fat Free Mass 109.6 Visceral Fat Rating 10.0 Body Water % 41.8 Body Water Mass 78.2 Muscle Mass/Score 104.0 Basal Metabolic Rate/Score 1,531 Intake Visit Reasons: (OV) PO LSG 01/16/25 Allergies oxycodone (Percocet) Allergy (Severe, Verified 02/10/25 14:07) hives HPI Comments Details: This?a?39?yo female who is s/p LSG without hiatal hernia repair on?01/16/2025. Presents for 3 week post op visit. Weight today is 187.2 pounds, with a BMI of 36.6. There has been a 29 pound weight loss,(initial weight 216.2 pounds) since starting the program on 10/16/2024 reflecting a 13.4% total body weight loss and a weight loss of 15.6 pounds since surgery (operative weight 202.8 pounds) reflecting a 7.6% TBWL since surgery. No complaints of nausea, emesis, abdominal pain or reflux. Reports infrequent but normal bowel movements every 1- 2 days and uses stool softeners regularly. No complaints of pain or nausea. Present meal plan includes: Ensure max rtd 6-9, 12-3 Ensure max 6 oz mixed w 2 oz almond milk at 5-7 additional 40 oz water ? Exercise routine includes: elliptical 5 x per week 30 min, 350 brandt per session walking with family on weekends [facility] Medical History (Updated 01/30/25 @ 00:02 by Boy Oakes) Morbid obesity Anxiety Depression GERD (gastroesophageal reflux disease) Boils Surgical History S/P laparoscopic sleeve gastrectomy History of esophagogastroduodenoscopy (EGD) (11/22/24) History of tubal ligation Hx of cholecystectomy Hx of section Hx of plastic surgery Hx of carpal tunnel repair Family History Maternal Grandfather Skin cancer Social History Household Members: Family Housing: House Are you a primary client care manager to a significant other at home: Yes (children) Do you presently have visiting nurse or other home services: No Alcohol intake: current Alcohol intake frequency: holidays/special occasions only Patient Tobacco Use Status: Never used Tobacco Cigarettes Per Day: 6 e-Cigarette/Vaping Use: Never Used Physical Exam Vital Signs: Last Vital Signs Temp 96.2 F L 02/10/25 14:06 Pulse 73 02/10/25 14:06 BP 109/69 02/10/25 14:06 Pulse Ox 98 02/10/25 14:06 Oxygen Delivery Method Room Air 02/10/25 14:06 BMI result Body Mass Index 36.6 Const General: healthy appearing and no acute distress Resp Effort & Inspection: normal respiratory effort Auscultation: clear to auscultation bilaterally Cardio Rate: regular rate Rhythm: regular rhythm GI Auscultation: normal bowel sounds Extrem General: Yes normal to inspection Assessment & Plan Assessment & Plan (1) S/P laparoscopic sleeve gastrectomy: Code(s): Z98.84 - Bariatric surgery status Category: Surgical Plan: Patient is doing well overall. She is having nausea with her vitamin despite taking it at night. She will discuss this with Dr. Sanders for further vitamin recommendations. She will continue her exercise plan although encouraged to increase exercise on the weekends so that she may burn an additional 300 calories per day on Monday and Monday. We will have her return to the office in approximately 1 month
[2025-02-10 14:06] VITALS: BP 109/69; PULSE 73; TEMP 35.7; O2SAT 98; BMI 36.6
--- OUTSIDE RECORDS SUMMARY | 2025-02-10 14:23 | XMS_ITS | Patient Health Record ---
Author Organization [facility] Address [address] [place] [address] Care Team Providers Care 911 Emergency Services Dispatcher Name Role Phone Chelsie Garcia Primary Care Provider Unavail able Hitesh Dee Unavailable [phone] Allergies Allergen (clinical drug ingredient) Drug/Non Drug [...] Status W/U Status Risk Notes Problem Bursitis (727.3) Active confirmed Problem Metatarsalgia (92369742) Metatarsalgia (726.70) Active confirmed Problem Tailors bunion (7591773) Tailors Bunion (727.1) Active confirmed Plan Of Treatment No Information Insurance Providers Payer Name Payer Address Payer Phone Subscriber Number Group Number Insured Name Patient Relationship to Insured Coverage Start Date Coverage End Date [facility] [address] [place] [address] [phone] [id number] Mariia Stanley Self - patient is the insured Medical (General) History Medical History History ICD Code Anxiety Back pain Broken bones Depression Gall bladder problems Thyroid disorder Chicken pox Reflux Surgical History Surgery Date(Month/Year) Justine muhammad 04/2011 Carpal Tunnel 11/2012 Gall Bladder 03/2014
== END 2025-02-10 14:54 | disposition home or self-care (01) ==
LOC: HO.HBS 13:53
PROVIDERS: PCP Nurse Practitioner; Visit Provider Physician Assistant Surgical
DX: Z98.84 Bariatric surgery status (principal)
CPT/HCPCS: 99024

== ENCOUNTER 2025-03-13 08:08 | Outpatient (AMB) | payer OTHER, SELFPAY ==
--- NOTE | 2025-03-13 08:12 | MHC.OFFVISWM ---
VS Expanded 03/13/25 08:31 BP 107/61 Blood Pressure Location Rt brachial Blood Pressure Position Sitting Pulse 69 Pulse Source Pulse Oximeter Temp 95.3 F L Temperature Source Temporal Artery Scan Pulse Oximetry 98 Oxygen Delivery Method Room Air Height 5 ft Weight 171 lb 6.4 oz BMI 33.5 Body Fat % 35.5 Body Fat Mass 60.8 Fat Free Mass 110.4 Visceral Fat Rating 8.0 Body Water % 46.1 Body Water Mass 79.0 Muscle Mass/Score 105.0 Basal Metabolic Rate/Score 1,513 Intake Visit Reasons: (OV) PO LSG 01/16/25 Ethics Manager Required: No Allergies oxycodone (Percocet) Allergy (Severe, Verified 02/10/25 14:07) hives Medication List - Last Reconciled 03/13/25 by DIXIE Gordon levothyroxine 137 mcg PO DAILY@0600 pantoprazole 40 mg PO DAILY sertraline (Zoloft) 100 mg PO BEDTIME sucralfate pt post op gastric sleeved pt prescribed med by Bariatric surgeon to take twice aday HPI Comments Details: This?a?39?yo female who is s/p LSG without hiatal hernia repair on?01/16/2025. Presents for 1 month 3 week post op visit. Weight today is 171.4 pounds, with a BMI of 33.5. There has been a 44.8 pound weight loss,(initial weight 216.2 pounds) since starting the program on 10/16/2024 reflecting a 20.7% total body weight loss and a weight loss of 31.4 pounds since surgery (operative weight 202.8 pounds) reflecting a 15.4% TBWL since surgery. Reports infrequent but normal bowel movements every 1-2 days and uses stool softeners regularly. She has switched to mvi w iron and no further nausea Present meal plan includes: Fairlife rtd (26 gm per shake) 4 oz w 4 oz almond milk 8-10, 12-2 fit crunch bar 3-5, 10-12 Meal 6 pm, 2 forks protein and 2 forks veg additional 40-50 oz water ? Exercise routine includes: elliptical 5 x per week 30 min, 350 brandt per session walking 1 hr, 3 mile loop on weekends [facility] Medical History (Updated 01/30/25 @ 00:02 by Background Rudion) Morbid obesity Anxiety Depression GERD (gastroesophageal reflux disease) Boils Surgical History S/P laparoscopic sleeve gastrectomy History of esophagogastroduodenoscopy (EGD) (11/22/24) History of tubal ligation Hx of cholecystectomy Hx of section Hx of plastic surgery Hx of carpal tunnel repair Family History Maternal Grandfather Skin cancer Social History Household Members: Family Housing: House Are you a primary career development counselor to a significant other at home: Yes (children) Do you presently have visiting nurse or other home services: No Alcohol intake: current Alcohol intake frequency: holidays/special occasions only Patient Tobacco Use Status: Never used Tobacco Cigarettes Per Day: 6 e-Cigarette/Vaping Use: Never Used Assessment & Plan Assessment & Plan (1) S/P laparoscopic sleeve gastrectomy: Code(s): Z98.84 - Bariatric surgery status Category: Surgical Plan: Patient is doing very well. Following the meal plan. She has increased her exercise to consistently burn 300 calories per day. She has no complaints at today's visit. We will continue current meal plan. She had stopped taking her sucralfate and we have refilled this. Return to clinic 3 weeks Medications: Changed From sucralfate pt post op gastric sleeved pt prescribed med by Bariatric surgeon to take twice aday To sucralfate pt post op gastric sleeved pt prescribed med by Bariatric surgeon to take twice aday 10 mL PO BID 420 mL 0RF
--- OUTSIDE RECORDS SUMMARY | 2025-03-13 08:14 | XMS_ITS | Patient Health Record ---
Author Organization [facility] Address [address] [place] [address] Care Team Providers Care Lactation Consultant Name Role Phone Chelsie Garcia Primary Care Provider Unavail able Hitesh Dee Unavailable [phone] Allergies Allergen (clinical drug ingredient) Drug/Non Drug [...] Problem Bursitis (727.3) Active confirmed Problem Metatarsalgia (57621200) Metatarsalgia (726.70) Active confirmed Problem Tailors bunion (7897471) Tailors Bunion (727.1) Active confirmed Plan Of Treatment No Information Insurance Providers Payer Name Payer Address Payer Phone Subscriber Number Group Number Insured Name Patient Relationship to Insured Coverage Start Date Coverage End Date [facility] [address] [place] [address] [phone] [id number] Mariia Stanley Self - patient is the insured Medical (General) History Medical History History ICD Code Anxiety Back pain Broken bones Depression Gall bladder problems Thyroid disorder Chicken pox Reflux Surgical History Surgery Date(Month/Year) Justine muhammad 04/2011 Carpal Tunnel 11/2012 Gall Bladder 03/2014
[2025-03-13 08:31] VITALS: BP 107/61; PULSE 69; TEMP 35.2; O2SAT 98; BMI 33.5
== END 2025-03-13 08:43 | disposition home or self-care (01) ==
LOC: HO.HBS 08:08
PROVIDERS: PCP Nurse Practitioner; Visit Provider Physician Assistant Surgical
DX: Z98.84 Bariatric surgery status (principal)
CPT/HCPCS: 99024

== ENCOUNTER 2025-04-08 08:16 | Outpatient (AMB) | payer OTHER, SELFPAY ==
--- NOTE | 2025-04-08 08:21 | A.OFFVIS_ITS ---
VS Expanded 04/08/25 08:33 BP 108/75 Blood Pressure Location Rt brachial Blood Pressure Position Sitting Pulse 80 Pulse Source Pulse Oximeter Temp 96.5 F L Temperature Source Temporal Artery Scan Pulse Oximetry 98 Oxygen Delivery Method Room Air Height 5 ft Weight 155 lb 6.4 oz BMI 30.3 Body Fat % 31.3 Body Fat Mass 48.6 Fat Free Mass 106.8 Visceral Fat Rating 6.0 Body Water % 49.1 Body Water Mass 76.2 Muscle Mass/Score 101.2 Basal Metabolic Rate/Score 1,447 Intake Visit Reasons: (OV) PO LSG 01/16/25 Tower Air Traffic Control Specialist Required: No Allergies oxycodone (Percocet) Allergy (Severe, Verified 04/08/25 08:28) hives Medication List - Last Reviewed 04/08/25 by Hannah Foley CMA levothyroxine 137 mcg PO DAILY@0600 sertraline (Zoloft) 100 mg PO BEDTIME sucralfate 10 mL PO BID HPI Comments Details: This?a?39?yo female who is s/p LSG without hiatal hernia repair on?01/16/2025. Presents for 2 months post op visit. Weight today is 155.4 pounds, with a BMI of 30.3. There has been a 60.8 pound weight loss,(initial weight 216.2 pounds) since starting the program on 10/16/2024 reflecting a 28.1% total body weight loss and a weight loss of 47.4 pounds since surgery (operative weight 202.8 pounds) reflecting a 23.3% TBWL since surgery. Reports infrequent but normal bowel movements every 1-2 days and uses stool softeners regularly. She has switched to lifeable mvi w iron and no further nausea. Satisfied with her meal plan. Present meal plan includes: Fairlife rtd (26 gm per shake) 4 oz w 4 oz almond milk 8-10, 12-2 fit crunch bar 3-5, 10-12 Meal 6 pm, 3 forks protein and 3 forks veg additional 40-50 oz water ? Exercise routine includes: elliptical 5 x per week 30 min, 300-350 brandt per session walking 1 hr, 3 mile loop daily [facility] Medical History (Updated 01/30/25 @ 00:02 by Boy Oakes) Morbid obesity Anxiety Depression GERD (gastroesophageal reflux disease) Boils Surgical History S/P laparoscopic sleeve gastrectomy History of esophagogastroduodenoscopy (EGD) (11/22/24) History of tubal ligation Hx of cholecystectomy Hx of section Hx of plastic surgery Hx of carpal tunnel repair Family History Maternal Grandfather Skin cancer Social History Household Members: Family Housing: House Are you a primary careers adviser to a significant other at home: Yes (children) Do you presently have visiting nurse or other home services: No Alcohol intake: current Alcohol intake frequency: holidays/special occasions only Patient Tobacco Use Status: Never used Tobacco Cigarettes Per Day: 6 e-Cigarette/Vaping Use: Never Used Physical Exam Const General: healthy appearing and no acute distress Resp Effort & Inspection: normal respiratory effort Auscultation: clear to auscultation bilaterally Cardio Rate: regular rate Rhythm: regular rhythm GI Auscultation: normal bowel sounds Extrem General: Yes normal to inspection Assessment & Plan Assessment & Plan (1) S/P laparoscopic sleeve gastrectomy: Code(s): Z98.84 - Bariatric surgery status Category: Surgical Plan: Patient is doing well overall. She is satisfied with her meal plan. Communicating with Dr. Sanders. Recommend increasing exercise to 350 calories consistently when using the treadmill at work. Discussed strategy including consistent speed, increasing incline by 1 or 2 every 3 minutes to max than decreasing in the same fashion. She is very satisfied with how she is doing. She has lost 16 lb since her last visit. Congratulated on this and we will follow up in the office as scheduled.
--- OUTSIDE RECORDS SUMMARY | 2025-04-08 08:21 | XMS_ITS | Patient Health Record ---
Author Organization [facility] Address [address] [place] [address] Care Team Providers Care Control Systems Engineer Name Role Phone Chelsie Garcia Primary Care Provider Unavail able Hitesh Dee Unavailable [phone] Allergies Allergen (clinical drug ingredient) Drug/Non Drug [...] Status W/U Status Risk Notes Problem Bursitis (43350838) Bursitis (727.3) Active confirmed Problem Metatarsalgia (69231855) Metatarsalgia (726.70) Active confirmed Problem Tailors Bunion (727.1) Active confirmed Plan Of Treatment No Information Insurance Providers Payer Name Payer Address Payer Phone Subscriber Number Group Number Insured Name Patient Relationship to Insured Coverage Start Date Coverage End Date [facility] [address] [place] [address] [id number] Mariia Stanley Self - patient is the insured Medical (General) History Medical History History ICD Code Anxiety Back pain Broken bones Depression Gall bladder problems Thyroid disorder Chicken pox Reflux Surgical History Surgery Date(Month/Year) Justine muhammad 04/2011 Carpal Tunnel 11/2012 Gall Bladder 03/2014
[2025-04-08 08:33] VITALS: BP 108/75; PULSE 80; TEMP 35.8; O2SAT 98; BMI 30.3
== END 2025-04-08 08:53 | disposition home or self-care (01) ==
LOC: HO.HBS 08:16
PROVIDERS: PCP Nurse Practitioner; Visit Provider Physician Assistant Surgical
DX: Z98.84 Bariatric surgery status (principal)
CPT/HCPCS: 99024

== ENCOUNTER 2025-06-23 13:44 | Outpatient (AMB) | payer OTHER, SELFPAY ==
--- NOTE | 2025-06-23 13:29 | A.OFFVIS_ITS ---
VS Expanded 06/23/25 13:31 Height 5 ft Weight 129 lb BMI 25.2 Intake Visit Reasons: (TV) PO LSG 01/16/25 Allergies oxycodone (Percocet) Allergy (Severe, Verified 04/08/25 08:28) hives Medication List - Last Reconciled 06/23/25 by DIXIE Grant levothyroxine 137 mcg PO DAILY@0600 pantoprazole 40 mg PO DAILY sertraline (Zoloft) 100 mg PO BEDTIME HPI Comments Details: This a 40 yo female who is s/p LSG without hiatal hernia repair on 01/16/2025. Presents for 5 months post op visit. Weight today is 155.4 pounds, with a BMI of 30.3. Initial weight 216.2 pounds starting the program on 10/16/2024 and operative weight 202.8 pounds. Reports infrequent but normal bowel movements every 1-2 days and uses stool softeners regularly. She noted some numbness of legs, pins/needles. She has switched to lifeable mvi w iron and no further nausea. She notes she was not always as consistent with MVI. Satisfied with her meal plan. Present meal plan includes: Fairlife rtd (26 gm per shake) 4 oz w 4 oz almond milk 8-10, 12-2 fit crunch bar 3-5, 10-12 Meal 6 pm, 3 forks protein and 3 forks veg additional 40-50 oz water Exercise routine includes: elliptical 5 x per week 30 min, 300-350 brandt per session walking 1 hr, 3 mile loop daily- doing this less lately due to shorter colder days, but does have a treadmill at home [facility] Medical History (Updated 06/23/25 @ 13:38 by DIXIE Grant) Morbid obesity Anxiety Depression GERD (gastroesophageal reflux disease) Boils Surgical History S/P laparoscopic sleeve gastrectomy History of esophagogastroduodenoscopy (EGD) (11/22/24) History of tubal ligation Hx of cholecystectomy Hx of section Hx of plastic surgery Hx of carpal tunnel repair Family History Maternal Grandfather Skin cancer Social History Household Members: Family Housing: House Are you a primary child care center assistant director to a significant other at home: Yes (children) Do you presently have visiting nurse or other home services: No Alcohol intake: current Alcohol intake frequency: holidays/special occasions only Patient Tobacco Use Status: Never used Tobacco Cigarettes Per Day: 6 e-Cigarette/Vaping Use: Never Used Telehealth Telehealth Telehealth Platform: Telephone Location of provider rendering services: other Location of patient: address on file Patient Identification confirmed using: Name, : Yes Telehealth method: voice only Patient verbally consented to treatment: Yes Patient verbally consented to billing insurance company: Yes Patient informed of any privacy concerns related to visit: Yes Minutes spent on Phone/Video with Pt.: 15 Assessment & Plan Assessment & Plan (1) S/P laparoscopic sleeve gastrectomy: Code(s): Z98.84 - Bariatric surgery status Category: Surgical (2) Overweight: Code(s): E66.3 - Overweight Category: Medical Plan Pt doing very well with weight loss, very close to healthy BMI. Will continue to communicate with Dr. Conway weekly and follow meal plan. Per pt he set a weight goal of 125lb for her. Labs ordered for complaints of parasthesias/numbness of legs. Will check vitamin levels as pt reports some days with missed MVI. Other potential cause could be thyroid issue. RTC in . Orders: Orders Vitamin D 25-OH Total Today Z98.84 - Bariatric surgery status TSH reflex Free T4 Today Z.84 - Bariatric surgery status C Reactive Protein Today Z.84 - Bariatric surgery status Zinc Today Z98.84 - Bariatric surgery status Complete Blood Count Auto Diff Today Z.84 - Bariatric surgery status Lipid Panel Today Z.84 - Bariatric surgery status IRON PROFILE Today Z.84 - Bariatric surgery status Hemoglobin A1c Today Z98.84 - Bariatric surgery status Insulin Today Z.84 - Bariatric surgery status Ferritin Today Z98.84 - Bariatric surgery status Vitamin B1 Today Z.84 - Bariatric surgery status Vitamin A Today Z98.84 - Bariatric surgery status Vitamin B12 and Folate Today Z98.84 - Bariatric surgery status Comprehensive Met. Panel Today Z.84 - Bariatric surgery status
[2025-06-23 13:31] VITALS: BMI 25.2
== END 2025-06-23 13:44 | disposition home or self-care (01) ==
LOC: HO.HBS 13:44
PROVIDERS: PCP Nurse Practitioner; Visit Provider Physician Assistant Surgical
DX: E66.3 Overweight (principal); Z68.25 Body mass index [BMI] 25.0-25.9, adult; Z90.3 Acquired absence of stomach [part of]; Z98.84 Bariatric surgery status
CPT/HCPCS: 98967

== ENCOUNTER 2025-06-24 06:26 | Outpatient (REF) | payer OTHER, SELFPAY ==
--- OUTSIDE RECORDS SUMMARY | 2025-06-24 06:30 | XMS_ITS | Patient Health Record ---
Author Organization [facility] Address [address] [place] [address] Care Team Providers Care Career Technical Education Instructor Name Role Phone Chelsie Garcia Primary Care Provider Unavail able Hitesh Dee Unavailable [phone] Allergies Allergen (clinical drug ingredient) Drug/Non Drug [...] Status W/U Status Risk Notes Problem Bursitis (87648994) Bursitis (727.3) Active confirmed Problem Metatarsalgia (74371220) Metatarsalgia (726.70) Active confirmed Problem Tailors bunion (0761701) Tailors Bunion (727.1) Active confirmed Plan Of Treatment No Information Insurance Providers Payer Name Payer Address Payer Phone Subscriber Number Group Number Insured Name Patient Relationship to Insured Coverage Start Date Coverage End Date [facility] [address] [place] [address] [id number] Mariia Stanley Self - patient is the insured Medical (General) History Medical History History ICD Code Anxiety Back pain Broken bones Depression Gall bladder problems Thyroid disorder Chicken pox Reflux Surgical History Surgery Date(Month/Year) Justine muhammad 04/2011 Carpal Tunnel 11/2012 Gall Bladder 03/2014
[2025-06-24 06:41] LABS: MANUAL DIFF FLAG NO
[2025-06-24 07:15] LABS: Hematocrit 40.1 % (37.0-47.0); Hemoglobin 13.2 g/dl (12.0-16.0); Imm Gran Abs Auto 0.01 X10*3/uL (0.00-0.03); Imm Gran Pct Auto 0.2 % (0.0-0.4); Lymphocytes Absolute Auto 1.9 X10*3/uL (1.2-4.9); Mean Corpuscular HGB Conc 32.9 g/dl (31.0-35.0); Mean Corpuscular Hemoglobin 28.6 pg (27.0-33.0); Mean Corpuscular Volume 86.8 fL (80.0-98.0); NRBC Abs Auto 0.000 X10*3/uL (0.0-0.012); NRBC Pct Auto 0.0 /100WBC (0.0-0.2); Platelet Count 326 X10*3/uL (160-400); Red Blood Count 4.62 X10*6/uL (4.20-5.50); White Blood Count 4.9 X10*3/uL (4.8-10.8)
[2025-06-24 07:52] LABS: Alanine Aminotransferase 26 U/L (0-31); Albumin Level 4.4 g/dL (3.5-5.0); Alkaline Phosphatase 68 U/L (39-117); Anion Gap 13 (12-20); Aspartate Amino Transferase 26 U/L (5-31); Blood Urea Nitrogen 21 mg/dL (9-16); Calcium 9.5 mg/dL (8.4-10.2); Carbon Dioxide 24 mmol/L (22-29); Chloride 106 mmol/L (96-108); Cholesterol 200 mg/dL (<200); Estimated Glomerular Filt Rate > 60; HDL Cholesterol 61 mg/dL (>40); Iron 121 mcg/dL (30-160); Percent Iron Saturation 37 % (15-50); Potassium 3.7 mmol/L (3.3-5.1); Sodium 139 mmol/L (135-145); Total Iron Binding Capacity 326 mcg/dL (228-428); Total Protein 6.8 g/dL (6.5-8.0); Triglycerides 62 mg/dL (<150); Unsaturated Iron Binding 205 ug/dL
[2025-06-24 08:10] LABS: Ferritin 23 ng/mL (10-250)
[2025-06-24 08:20] LABS: Folate 10.8 ng/mL (> or = 4.0); Vitamin B12 678 pg/mL (200-900)
[2025-06-24 08:43] LABS: Free T4 (Free Thyroxine) 1.35 ng/dL (0.71-1.85)
== END 2025-06-24 06:27 | disposition home or self-care (01) ==
LOC: HO.LAB 06:26
PROVIDERS: PCP Nurse Practitioner; Visit Provider Physician Assistant Surgical
DX: Z13.6 Encounter for screening for cardiovascular disorders (principal); Z13.1 Encounter for screening for diabetes mellitus; Z13.29 Encounter for screening for other suspected endocrine disorder; Z98.84 Bariatric surgery status
CPT/HCPCS: 36415; 80053; 80061; 82306; 82607; 82728; 82746; 83036; 83525; 83540; 84425; 84439; 84443; 84590; 84630; 85025; 86140